=== PATIENT | male | born 1950 | race Caucasian/White ===

== ENCOUNTER 2018-07-21 17:45 | Inpatient (IN) | payer MEDICARE ==
--- OUTSIDE RECORDS SUMMARY | 2018-07-21 18:33 | XMS REPORT ---
:1950 External Reference #:[id number] Author Organization [facility] Address [address] [place] [address] [place] [address] Phone [phone] Care Team Providers Name Role Phone Rell Saldana III, MD Primary Care Physician Unavailable Payers Type Date Identification Numbers Payment Provider Subscriber Health Maintenance Policy Number: Medicare Blue o Gavino Golden (O) [id number] Group Number: [id number] [address] PayID: [id number] JUAN Jacobson [address] Medigap Part B Expires: 05/05/2015 Policy Number: [id number] Medicare Gavino Handley PayID: [id number] [address] [place] [address] Medigap Part B Effective: 02/04/2014 Policy Number: BS Ramy Handley [id number] Expires: 07/06/2015 PayID: [id number] [address] [address] JUAN Jacobson [id number] Medigap Part B Effective: 02/05/2012 Policy Number: BS Ramy Handley [id number] Expires: 02/03/2014 PayID: [id number] [address] [address] JUAN Jacobson [id number] Commercial Expires: 09/04/2015 PayID: [id number] Medicare D - Drug Plan Gavino Handley Advance Directives Type Date Description Status Comment Other Directive 07/29/2015 health care proxy Current and Verified Problems Date Description Provider Status Onset: 05/28/2011 Type 2 diabetes mellitus Rell Saldana M.D. Active Onset: 05/28/2011 Benign essential hypertension Rell Saldana M.D. Active Onset: 05/28/2011 Mixed hyperlipidemia Rell Saldana M.D. Active Onset: 05/28/2011 Gastroesophageal reflux disease Rell Saldana M.D. Active Onset: 11/15/2012 Obstructive sleep apnea syndrome Rell Saldana M.D. Active Onset: 11/15/2012 Osteoarthritis Rell Saldana M.D. Active Onset: 08/06/2015 Essential hypertension Rell Saldana M.D. Active Family History Date Family Member(s) Problem(s) Comments General Diabetes Father due to Suicide () - age 65; (+) depression, HTN Mother Alzheimer's Disease Social History Type Date Description Comments Lives With Alone Occupation [email or web address] Cigarette Use Former Cigarette Smoker quit age 49; max 2ppd, began age 17 ETOH Use Rarely consumes alcohol Smoking Patient is a former smoker Recreational Drug Use Denies Drug Use Daily Caffeine Comsumes on average 1 cup of decaff coffee per day Exercise Type/Frequency Exercises rarely walks on occ Allergies, Adverse Reactions, Alerts Date Description Reaction Status Severity Comments 05/18/2007 Iodine active 02/22/2018 Iodinated Diagnostic warm and tingling active Agents sensation 03/07/2013 Amlodipine active lower extremity edema Medications Medication Date Status Form Strength Qnty SIG Indications Ordering Provider Irbesartan 05/19 Active Tablets 75mg 30tab 1 by mouth Rell [place] s every day Oh Saldana Multaq 03/01 Active Tablets 400mg 60tab 1 by mouth Adi s twice a day Tash Macario M.D. Atorvastatin 02/22 Active Tablets 20mg take 1 E78.2 Rell [place] Calcium tablet every Shana, other day at M.DAllyn bedtime Metoprolol 02/18 Active Tablets ER 50mg 180ta 1 by mouth Adi Succinate ER 24HR bs twice a day Tash Macario M.D. Xarelto 02/01 Active Tablets 20mg 30tab 1 by mouth Adi s every day Tash Macario M.D. Omeprazole 10/[address] 20mg 1 by mouth K21.9 Rell [place] /2016 every day Oh Saldana Metformin HCL 08/03 Active Tablets 1000mg 180ta 1 by mouth Rell [place] bs twice a day Oh Saldana Trulicity 07/27 Active Solution 0.75mg/0. 4unit inject E11.9 Rell E Pen-Inject 5ML s 0.75mg once Shana, a week M.DAllyn Freestyle 28G 03/04 Active 100un Test twice a E11.9 Rell [place] Lancets its day Oh Saldana BD U/F Short 03/04 Active 100un Use With Rell [place] Pen its Lantus Shana, [id number] Subcutaneous M.D. ly Twice A Day Accu-Chek 12/18 Active Strips 100un four times a Rell [place] Comfort Curve Strips day and as Shana, Test needed M.D. Freestyle Lite 06/24 Active 100un use 4 times Rell [place] Lancets its times daily Shana, or as needed M.D. Freestyle Lite 06/24 Active Strip 100un Test 4 Times Rell [place] Test its A Day And as Shana, Needed M.D. Pen Gaffney 09/25 Active 8mm 100un use with E11. Rell [place] [id number]" 31G X its lantus subq Shana everyday Oh twice a day Chlorthalidone 08/23 Active Tablets 25mg 45tab 1/2 po qd I10 Rell [place] desiree Saldana M.D. Lantus Solostar 08/23 Active Solution 100Unit/M 30uni 49 units E11. Rell [place] Pen-Inject L ts twice a day Oh Saldana Glimepiride 11/15 Active Tablets 4mg 180ta take 2 E11.9 Rell [place] bs tablets by Shana, mouth once M.DAllyn daily Accu-Check 04/08 Active Device 1unit check 2-3 Rell [place] Glucose Monitor s times a day Oh Saldana Arabella Allergy Active Tablets 180mg 30tab 1 by mouth Unknown /0000 s every day Ibuprofen 00 Active Tablets 200mg as needed Unknown /0000 Multi Vitamin Active Tablets 1 by mouth Unknown /0000 every day Metoprolol 02/01 Hx Tablets 25mg 60tab 2 by mouth Adi Tartrate s twice a day Tash Macario, - M.DAllyn 02/18 Famotidine 07/27 Hx Tablets 40mg 30tab 1 by mouth K21.9 Rell E. s every day Shana - M.DAllyn 10/23 Celecoxib 01/12 Hx Capsules 200mg 60cap 1 by mouth M17.0 Dirk s twice a day Rachel, - M.DAllyn 07/27 Atorvastatin 08/06 Hx Tablets 10mg 90tab take 1 E78.2 Rell EAllyn s tablet by Shana, - mouth daily M.D. 02/22 at bedtime Invokana 08/06 Hx Tablets 300mg 90tab 1 by mouth E11.9 Rell E. s every day Shana - M.DAllyn 02/21 Invokana 09/10 Hx Tablets 100mg 90tab 1 by mouth 250.00 Rell E. s every day Shana, - before M.D. 08/06 breakfast Zostavax 09/10 Hx Solution [id number]/ 1unit 1 dose s/c V70.0 Rell EAllyn Rec 0.65ML s Shana - M.DAllyn 10/11 Pen Gaffney 08/23 Hx Misc 31G X 8 50uni use with 250.00 Rell E. 31GX5/16" mm ts lantus subq Shana - qday M.DAllyn 09/25 Lisinopril 08/23 Hx Tablets 40mg 90tab 1 po qd I10 Rell E. s Marcellus Saldana M.DAllyn 06/25 Accu-Chek 09/10 Hx Misc 100un test twice Rell [place] Softcl its daily as Isac Saldana - needed M.D. 06/24 Accu-Check 09/09 Hx 120un use four Rell Chau its times a day Shana, - and prn. M.Tash 06/24 Fish Oil 08/17 Hx Capsules 1000mg 1 capsule qd Rell [place] Marcellus Saldana M.DAllyn 08/23 Glimepiride 08/17 Hx Tablets 2mg 45tab 07/08 tabs po 250.00 Rell Rosa Elena s qd Shana - M.DAllyn 11/15 Glimepiride 07/11 Hx Tablets 2mg 30tab 1 po qd 250.00 Rell E. s Shana - M.DAllyn 08/17 Losartan 07/11 Hx Tablets 100-25mg 30tab take 1 401.1 Rell Romo. Potassium/[place] s tablet by Shana chlorothiazide - mouth once M.D. 08/23 daily Atorvastatin 07/11 Hx Tablets 20mg 30tab take 1 272.2 Rell [place] Calcium s tablet by Shana, - mouth at M.D. 08/06 bedtime Accu-Chek 04/08 Hx Strips 102un four times a Rell [place] Compact Plus its day and as Shana, - needed M.D. 06/24 Freestyle 12/22 Hx 100un Use With Rell Chau its Glucometer 2 Shana, - Times A Day M.D. 04/08 Or Needed. Losartan 05/28 Hx Tablets 100-12.5m 30tab Take 1 Rell [place] Potassium/[place] g s Tablet By Shana chlorothiazide - Mouth Daily M.D. 07/11 Fluticasone 04/23 Hx Suspension 50mcg/Act 16uni instill 1 Rell [place] Propionate ts spray into Shana, - each nostril M.D. 07/11 once daily Xyzal 04/13 Hx Tablets 5mg 30tab 1 tablet Rell Rosa Elena /2010 s daily as Shana, - needed M.D. 07/11 Freestyle Lite 11/19 Hx 100un two times Rell Chau its daily or as Shana, - needed M.D. 04/08 Freestyle Lite 16 Hx Strip 100un Use as Rell [place] Test its Directed 2 Shana, - Times Daily M.D. 04/08 Or Needed. Amlodipine 11/12 Hx Tablets 10mg 90tab 1 po qd 401.1 Rell [place] Bes Marcellus Lozano M.D. 03/02 Losartan 10/15 Hx Tablets 100mg 30tab 1 po qd Rell [place] Potassium Marcellus Lozano M.D. 05/28 Janumet 10/15 Hx Tablets 50-1000mg 180ta take 1 Rell [place] bs tablet by Shana - mouth twice M.DAllyn 08/03 Metformin ER 08/21 Hx 500mg 120un 2 PO bid Rell [place] /2007 its Marcellus Saldana M.D. 10/15 Zestoretic 06/22 Hx Tablets 20-12.5 30tab 1 po qd Rell [place] /2006 Marcellus Lozano M.D. 10/15 Metformin HCL 05/18 Hx Tablets 1000mg 180ta 1 po bid Rell [place] /2006 Marcellus Luke M.D. 08/21 Avandia 05/18 Hx Tablets 4mg 180ta 2 PO qd Rell [place] /2006 Marcellus Luke M.D. 10/15 Aspir-81 05/[address] 81mg 1 PO qd Rell [place] /2006 Marcellus Saldana M.D. 01/19 Zestoretic 05/18 Hx Tablets 06/17.5 90tab 1 PO qd Rell [place] /2006 Marcellus Lozano M.D. 06/22 Lipitor 05/18 Hx Tablets 20mg 30tab take 1 Rell [place] /2006 s tablet daily Marcellus Saldana at bedtime Maritza.Tash 08/17 Arabella Hx Tablets 180mg 90tab 1 PO qd prn Rell [place] / Marcellus Lozano M.D. 04/13 Flonase Hx Suspension 50mcg/Act 3unit 1 Intranasal Jose Angel / s puff To Each Pachika - Oh Blanco 04/23 Precision Xtra Hx Strips 100un Use To Rell [place] Blood Glucose / its Monitor Shana Test Strips - Blood M.DAllyn 11/19 Glucose qd or prn Dx 250.00 Lancets 00/00 Hx Misc 100un Microlet use Rell E. /0000 its with Shana, - glucometer M.D. 11/19 bid pr /2010 [address]il[address]c OTC Hx Tablets DR 20mg 21tab 1 po qd Unknown /0000 s - 07/27 Glucosamine Hx Capsules 500Comp 1 by mouth Unknown Chondroitin 500 /0000 every day Complex - 02/05 Ibuprofen PM Hx Tablets 200-38mg 1 at bedtime Unknown /0000 - 03/28 Medications Administered in Office Medication Date Status Form Strength Qnty SIG Indications Ordering Provider Synvisc Or Administered Injection Ángel Synvisc-One 018 Rosano, Injection 1 MG PA-C Synvisc Or Administered Injection Dirk Rachel, Synvisc-One 018 M.D. Injection 1 MG Synvisc Or Administered Injection Dirk Rachel, Synvisc-One 018 M.D. Injection 1 MG Synvisc Or Administered Injection Dirk Rachel, Synvisc-One 017 M.D. Injection 1 MG Synvisc Or Administered Injection Dirk Rachel, Synvisc-One 017 M.D. Injection 1 MG Depomedrol Administered Injection Dirk Rachel, 40MG 017 M.D. Depomedrol Administered Injection Dirk Rachel, 40MG 017 M.D. Depomedrol Administered Injection Dirk Rachel, 40MG 016 M.D. Depomedrol Administered Injection Dirk Rachel, 40MG 016 M.D. Depomedrol Administered Injection Dirk Rachel, 40MG 016 M.D. Depomedrol Administered Injection Dirk Rachel, 40MG 016 M.D. Immunizations CPT Code Status Date Vaccine Reaction Lot # 30067 Given 04/11/2018 Pneumonia Vaccine Pt. tolerated well. [id number] 61914 Given 06/21/2017 Influenza Virus Vaccine, Quadrivalent, Split, Preservative Free [id number] Given 05/25/2016 Fluzone High Dose 68727 Given 01/20/2016 Tdap - [id number] Tetanus/Diptheria/Acellular Pertussis 01818 Given 07/01/2015 Fluzone High Dose 96791 Given 09/14/2014 Zoster (Zostavax) [id number] Given 09/10/2014 Pneumococcal Conjugate Vaccine [id number] Valent For Intramuscular Use 41050 Given 07/17/2014 Flu Vaccine Split Virus Preservative Free For Indiv 3Yr Older 22768 Given 08/23/2013 Flu Vaccine Split Virus [id number] Preservative Free For Indiv 3Yr Older Q2037 Given 07/11/2012 Fluvirin Im 3Yrs And Older [id number] 95645 Given 05/28/2011 Influenza Virus 3Yrs & Over [id number] 40600 Given 10/15/2010 Influenza Virus 3Yrs & Over [id number] 32765 Given 03/06/2009 Pneumonia Vaccine [id number] 63483 Given 07/25/2008 Influenza Virus 3Yrs & Over 63930 Given 06/22/2007 Influenza Virus 3Yrs & Over 90612 Given 09/15/2005 Td (History By Patient) Vital Signs Date Vital Result Comment 06/28/2018 Height 67 inches 5'7" Weight 289.00 lb w/ shoes Heart Rate 93 /min BP Systolic Sitting 132 mmHg lue lg cuff BP Diastolic Sitting 68 mmHg lue lg cuff BMI (Body Mass Index) 45.3 kg/m2 Ejection Fraction 50-55% 02/01/18 04/18/2018 Height 67 inches 5'7" Weight 280.00 lb Heart Rate 96 /min BP Systolic 160 mmHg BP Diastolic 78 mmHg Body Temperature 97.6 F BMI (Body Mass Index) 43.8 kg/m2 04/11/2018 Height 67 inches 5'7" Weight 282.00 lb Heart Rate 88 /min BP Systolic Sitting 130 mmHg BP Diastolic Sitting 68 mmHg Body Temperature 98.7 F O2 % BldC Oximetry 96 % BMI (Body Mass Index) 44.2 kg/m2 04/04/2018 Height 67 inches 5'7" Weight 280.00 lb Heart Rate 94 /min BP Systolic 143 mmHg BP Diastolic 69 mmHg Body Temperature 97.5 F BMI (Body Mass Index) 43.8 kg/m2 03/29/2018 Height 68 inches 5'8" Weight 282.00 lb w/ shoes BP Systolic Sitting 132 mmHg lue lg cuff BP Diastolic Sitting 62 mmHg lue lg cuff Respiratory Rate 18 /min BMI (Body Mass Index) 42.9 kg/m2 Ejection Fraction 55-60% echo 03/01/18 03/07/2018 Height 68 inches 5'8" Weight 282.00 lb with shoes. BP Systolic Sitting 132 mmHg Negin large cuff BP Diastolic Sitting 60 mmHg Negin large cuff BP Systolic Standing 128 mmHg Negin large cuff BP Diastolic Standing 58 mmHg Negin large cuff BMI (Body Mass Index) 42.9 kg/m2 02/22/2018 Height 68 inches 5'8" Weight 280.00 lb w/ shoes Heart Rate 140 /min BP Systolic Sitting 128 mmHg lue lg cuff BP Diastolic Sitting 76 mmHg lue lg cuff BMI (Body Mass Index) 42.6 kg/m2 Ejection Fraction 50-55% echo 02/01/18 09/13/2017 Height 68 inches 5'8" Weight 279.00 lb BP Systolic 134 mmHg BP Diastolic 78 mmHg Respiratory Rate 20 /min Pain Level 8 BMI (Body Mass Index) 42.4 kg/m2 08/11/2017 Height 68 inches 5'8" Weight 279.00 lb BP Systolic 128 mmHg BP Diastolic 76 mmHg Respiratory Rate 20 /min Pain Level 8 BMI (Body Mass Index) 42.4 kg/m2 07/28/2017 Height 67 inches 5'7" Weight 281.00 lb Heart Rate 110 /min BP Systolic Sitting 126 mmHg BP Diastolic Sitting 78 mmHg Body Temperature 98.7 F O2 % BldC Oximetry 97 % BMI (Body Mass Index) 44.0 kg/m2 02/08/2017 Height 68 inches 5'8" Weight 279.00 lb Heart Rate 82 /min BP Systolic 150 mmHg BP Diastolic 88 mmHg Respiratory Rate 18 /min Body Temperature 98.5 F Pain Level 6 BMI (Body Mass Index) 42.4 kg/m2 01/25/2017 Height 68 inches 5'8" Weight 279.00 lb Heart Rate 109 /min BP Systolic 144 mmHg BP Diastolic 74 mmHg Pain Level 6 BMI (Body Mass Index) 42.4 kg/m2 12/02/2016 Height 68 inches 5'8" Weight 279.00 lb Heart Rate 118 /min BP Systolic 134 mmHg BP Diastolic 75 mmHg Body Temperature 97.4 F Pain Level 5 BMI (Body Mass Index) 42.4 kg/m2 10/23/2016 Height 68 inches 5'8" Weight 281.25 lb Heart Rate 103 /min BP Systolic 124 mmHg BP Diastolic 68 mmHg O2 % BldC Oximetry 97 % BMI (Body Mass Index) 42.8 kg/m2 07/29/2016 Height 68 inches 5'8" Weight 279.00 lb Pain Level 7 BMI (Body Mass Index) 42.4 kg/m2 07/27/2016 Height 66 inches 5'6" Weight 278.00 lb w/ boots Heart Rate 116 /min BP Systolic Sitting 124 mmHg BP Diastolic Sitting 70 mmHg Body Temperature 98.3 F O2 % BldC Oximetry 98 % BMI (Body Mass Index) 44.9 kg/m2 01/20/2016 Weight 275.00 lb Heart Rate 102 /min BP Systolic Sitting 132 mmHg BP Diastolic Sitting 60 mmHg Body Temperature 98.3 F 01/13/2016 Height 68 inches 5'8" Weight 275.00 lb Heart Rate 113 /min BP Systolic 140 mmHg BP Diastolic 78 mmHg BMI (Body Mass Index) 41.8 kg/m2 08/06/2015 Height 65.75 inches 5'5.75" Weight 280.00 lb Heart Rate 108 /min BP Systolic 138 mmHg BP Diastolic 70 mmHg Body Temperature 98.3 F O2 % BldC Oximetry 97 % BMI (Body Mass Index) 45.5 kg/m2 02/04/2015 Weight 279.00 lb Heart Rate 107 /min BP Systolic Sitting 144 mmHg BP Diastolic Sitting 68 mmHg 10/11/2014 Height 65.75 inches 5'5.75" Weight 280.25 lb Heart Rate 114 /min BP Systolic Sitting 142 mmHg 151/81 home, pulse 123 BP Diastolic Sitting 66 mmHg 151/81 home, pulse 123 Body Temperature 98.1 F O2 % BldC Oximetry 97 % BMI (Body Mass Index) 45.6 kg/m2 09/10/2014 Height 65.75 inches 5'5.75" Weight 282.00 lb Heart Rate 111 /min BP Systolic Sitting 162 mmHg 189/94 initially BP Diastolic Sitting 74 mmHg 189/94 initially Body Temperature 97.7 F O2 % BldC Oximetry 99 % BMI (Body Mass Index) 45.9 kg/m2 01/15/2014 Weight 279.50 lb Heart Rate 120 /min BP Systolic Sitting 144 mmHg BP Diastolic Sitting 78 mmHg 10/12/2013 Weight 288.00 lb Heart Rate 110 /min BP Systolic Sitting 148 mmHg pt 141/79 BP Diastolic Sitting 78 mmHg pt 141/79 08/23/2013 Height 66.25 inches 5'6.25" Weight 283.25 lb Heart Rate 112 /min BP Systolic Sitting 140 mmHg BP Diastolic Sitting 70 mmHg BMI (Body Mass Index) 45.4 kg/m2 11/15/2012 Height 66.5 inches 5'6.50" Weight 285.00 lb Heart Rate 94 /min BP Systolic Sitting 152 mmHg BP Diastolic Sitting 70 mmHg BMI (Body Mass Index) 45.3 kg/m2 08/17/2012 Height 66.5 inches 5'6.50" Weight 281.00 lb Heart Rate 100 /min BP Systolic Sitting 162 mmHg BP Diastolic Sitting 78 mmHg BMI (Body Mass Index) 44.7 kg/m2 07/11/2012 Height 66.5 inches 5'6.50" Weight 279.00 lb Heart Rate 124 /min BP Systolic Sitting 154 mmHg BP Diastolic Sitting 86 mmHg BMI (Body Mass Index) 44.4 kg/m2 05/28/2011 Height 67 inches 5'7" Weight 276.00 lb Heart Rate 88 /min BP Systolic Sitting 152 mmHg BP Diastolic Sitting 90 mmHg BMI (Body Mass Index) 43.2 kg/m2 01/22/2011 Weight 280.00 lb Heart Rate 92 /min BP Systolic Sitting 164 mmHg BP Diastolic Sitting 70 mmHg 11/12/2010 Weight 287.00 lb Heart Rate 86 /min BP Systolic Sitting 172 mmHg BP Diastolic Sitting 80 mmHg 10/15/2010 Weight 287.00 lb Heart Rate 113 /min BP Systolic Sitting 158 mmHg BP Diastolic Sitting 70 mmHg O2 % BldC Oximetry 95 % 08/28/2009 Weight 274.00 lb down 9# Heart Rate 100 /min BP Systolic Sitting 140 mmHg BP Diastolic Sitting 76 mmHg 03/06/2009 Height 66.5 inches 5'6.50" Weight 283.00 lb Heart Rate 112 /min BP Systolic Sitting 156 mmHg BP Diastolic Sitting 86 mmHg BMI (Body Mass Index) 45.0 kg/m2 03/22/2008 Height 66.5 inches 5'6.50" Weight 272.00 lb Heart Rate 72 /min BP Systolic Sitting 142 mmHg BP Diastolic Sitting 84 mmHg BMI (Body Mass Index) 43.2 kg/m2 09/22/2007 Height 66.5 inches 5'6.50" Weight 272.00 lb Heart Rate 104 /min BP Systolic Sitting 158 mmHg BP Diastolic Sitting 86 mmHg BMI (Body Mass Index) 43.2 kg/m2 06/22/2007 Height 66.5 inches 5'6.50" Weight 272.00 lb Heart Rate 116 /min BP Systolic Sitting 156 mmHg BP Diastolic Sitting 78 mmHg BMI (Body Mass Index) 43.2 kg/m2 05/18/2007 Height 66.5 inches 5'6.50" Weight 272.00 lb Heart Rate 84 /min BP Systolic Sitting 180 mmHg BP Diastolic Sitting 90 mmHg BMI (Body Mass Index) 43.2 kg/m2 Results Test Date Test Result H/L Range Note Laboratory test finding 04/11/2018 Hemoglobin A1c 6.2 5-7 Comp Metabolic Panel 02/01/2018 Sodium 135 mmol/L Low 139-145 Potassium 4.3 mmol/L 3.5-5.0 Chloride 102 mmol/L 101-111 Co2 Carbon Dioxide 25 mmol/L 22-32 Anion Gap 8 mmol/L 2-11 Glucose 120 mg/dL High 70-100 Blood Urea Nitrogen 13 mg/dL 6-24 Creatinine 0.85 mg/dL 0.67-1.17 BUN/Creatinine Ratio 15.3 8-20 Calcium 8.8 mg/dL 8.6-10.3 Total Protein 6.6 g/dL 6.4-8.9 Albumin 4.0 g/dL 3.2-5.2 Globulin 2.6 g/dL 2-4 Albumin/Globulin Ratio 1.5 1-3 Total Bilirubin 0.70 mg/dL 0.2-1.0 Alkaline Phosphatase 61 U/L 34-104 Alt 38 U/L 7-52 Ast 51 U/L High 13-39 Egfr Non- 89.6 >60 Egfr 115.3 >60 1 Laboratory test finding 02/01/2018 TSH (Thyroid Stim Horm) 2.91 mcIU/mL 0.34-5.60 CBC Auto Diff 02/01/2018 White Blood Count 7.2 10^3/uL 3.5-10.8 Red Blood Count 4.88 10^6/uL 4.0-5.4 Hemoglobin 12.2 g/dL Low 14.0-18.0 Hematocrit 38 % Low 42-52 Mean Corpuscular Volume 78 fL Low 80-94 Mean Corpuscular Hemoglobin 25 pg Low 27-31 Mean Corpuscular HGB Conc 32 g/dL 31-36 Red Cell Distribution Width 16 % High 10.5-15 Platelet Count 172 10^3/uL 150-450 Mean Platelet Volume 8.1 um3 7.4-10.4 Abs Neutrophils 5.3 10^3/uL 1.5-7.7 Abs Lymphocytes 1.2 10^3/uL 1.0-4.8 Abs Monocytes 0.4 10^3/uL 0-0.8 Abs Eosinophils 0.2 10^3/uL 0-0.6 Abs Basophils 0 10^3/uL 0-0.2 Abs Nucleated RBC 0 10^3/uL Granulocyte % 73.8 % 38-83 Lymphocyte % 16.5 % Low 25-47 Monocyte % 6.1 % 0-7 Eosinophil % 3.3 % 0-6 Basophil % 0.3 % 0-2 Nucleated Red Blood Cells % 0 Lipid Profile (Trig/Chol/HDL) 07/20/2017 Triglycerides 236 mg/dL 2 Cholesterol 90 mg/dL 3 HDL Cholesterol 26.4 mg/dL 4 LDL Cholesterol 16 mg/dL 5 Laboratory test finding 07/20/2017 Hemoglobin A1c (Glyco 6.7 % High 4.0- 5.6 6 HGB) Urine Microalbumin 07/20/2017 Ur Microalbumin (mg/L) < 15.0 mg/L Random Urine Creatinine 86.99 mg/dL Urine Microalbumin/Creatinine TNP ug/mg <31 7 Comp Metabolic Panel 07/20/2017 Sodium 138 mmol/L 133-145 Potassium 5.0 mmol/L 3.5-5.0 Chloride 106 mmol/L 101-111 Co2 Carbon Dioxide 24 mmol/L 22-32 Anion Gap 8 mmol/L 2-11 Glucose 134 mg/dL High 70-100 Blood Urea Nitrogen 22 mg/dL 6-24 Creatinine 1.11 mg/dL 0.67-1.17 BUN/Creatinine Ratio 19.8 8-20 Calcium 9.6 mg/dL 8.6-10.3 Total Protein 6.6 g/dL 6.4-8.9 Albumin 4.3 g/dL 3.2-5.2 Globulin 2.3 g/dL 2-4 Albumin/Globulin Ratio 1.9 1-3 Total Bilirubin 0.60 mg/dL 0.2-1.0 Alkaline Phosphatase 70 U/L 34-104 Alt 33 U/L 7-52 Ast 32 U/L 13-39 Egfr Non- 66.1 >60 Egfr 85.0 >60 8 Laboratory test finding 10/23/2016 Hemoglobin A1c 6.9 5-7 Lipid Profile (Trig/Chol/HDL) 07/21/2016 Triglycerides 253 mg/dL 9 Cholesterol 95 mg/dL 10 HDL Cholesterol 24.9 mg/dL 11 LDL Cholesterol 20 mg/dL 12 Laboratory test 07/21/2016 Hemoglobin A1c 8.1 % High Less than 6.0 13 finding (Glyco HGB) Urine Microalbumin 07/21/2016 Urine Creatinine 72.72 mg/dL Random Ur Microalbumin (mg/L) < 15.0 mg/L Urine Microalbumin/Creatinine TNP ug/mg <31 14 Comp Metabolic Panel 01/16/2016 Sodium 136 mmol/L 133-145 Potassium 4.4 mmol/L 3.5-5.0 Chloride 104 mmol/L 101-111 Co2 Carbon Dioxide 24 mmol/L 22-32 Anion Gap 8 mmol/L 2-11 Glucose 135 mg/dL High 70-100 Blood Urea Nitrogen 35 mg/dL High 6-24 Creatinine 1.09 mg/dL 0.67-1.17 BUN/Creatinine Ratio 32.1 High 8-20 Calcium 9.0 mg/dL 8.6-10.3 Total Protein 6.8 g/dL 6.4-8.9 Albumin 4.2 g/dL 3.2-5.2 Globulin 2.6 g/dL 2-4 Albumin/Globulin Ratio 1.6 1-3 Total Bilirubin 0.50 mg/dL 0.2-1.0 Alkaline Phosphatase 75 U/L 34-104 Alt 37 U/L 7-52 Ast 31 U/L 13-39 Egfr Non- 67.7 >60 Egfr 87.0 >60 15 Laboratory test 01/16/2016 Hemoglobin A1c (Glyco 7.3 % High Less than 6.0 16 finding HGB) Lipid Profile 07/30/2015 Triglycerides 192 mg/dL 17 (Trig/Chol/HDL) Cholesterol 81 mg/dL 18 HDL Cholesterol 25.4 mg/dL 19 LDL Cholesterol 17 mg/dL 20 Laboratory test 07/30/2015 Hemoglobin A1c 7.4 % High Less than 6.0 21 finding (Glyco HGB) Laboratory test 01/30/2015 Hemoglobin A1c 7.4 % High Less than 6.0 22 finding (Glyco HGB) Comp Metabolic Panel 01/30/2015 Sodium 137 mmol/L 133-145 Potassium 5.4 mmol/L High 3.5-5.0 Chloride 108 mmol/L 101-111 Co2 Carbon Dioxide 23 mmol/L 22-32 Anion Gap 6 mmol/L 2-11 Glucose 136 mg/dL High 70-100 Blood Urea Nitrogen 27 mg/dL High 6-24 Creatinine 1.17 mg/dL 0.67-1.17 BUN/Creatinine Ratio 23.1 High 8-20 Calcium 9.7 mg/dL 8.6-10.3 Total Protein 6.5 g/dL 6.4-8.9 Albumin 4.2 g/dL 3.2-5.2 Globulin 2.3 g/dL 2-4 Albumin/Globulin Ratio 1.8 1-3 Total Bilirubin 0.50 mg/dL 0.2-1.0 Alkaline Phosphatase 77 U/L 34-104 Alt 34 U/L 7-52 Ast 32 U/L 13-39 Egfr Non- 62.6 >60 Egfr 80.5 >60 23 BMP Basic Metabolic Panel 10/09/2014 Sodium 135 mmol/L 133-145 Potassium 4.5 mmol/L 3.5-5.0 Chloride 106 mmol/L 101-111 Co2 Carbon Dioxide 19 mmol/L Low 22-32 Anion Gap 10 mmol/L 2-11 Glucose 233 mg/dL High 70-100 Blood Urea Nitrogen 20 mg/dL 6-24 Creatinine 1.25 mg/dL High 0.67-1.17 BUN/Creatinine Ratio 16.0 8-20 Calcium 9.4 mg/dL 8.6-10.3 Egfr Non- 58.0 >60 Egfr 74.6 >60 24 Laboratory test 09/04/2014 Hemoglobin A1c 10.8 % High Less than 25, 26 finding 6.0 Urine Microalbumin 09/04/2014 Ur Microalbumin 51.0 mg/L 25 Random (mg/L) Urine Creatinine 112.26 mg/dL 25 Urine Microalbumin/Creatinine 45.4 High Less Than 31 25 CBC Auto Diff 09/04/2014 White Blood Count 5.5 10^3/uL 4.8-10.8 25 Red Blood Count 4.29 10^6/uL 4.0-5.4 25 Hemoglobin 10.0 g/dL Low 14.0-18.0 25 Hematocrit 32 % Low 42-52 25 Mean Corpuscular Volume 76 fL Low 80-94 25 Mean Corpuscular Hemoglobin 23 pg Low 27-31 25 Mean Corpuscular HGB Conc 31 g/dL 31-36 25 Red Cell Distribution Width 16 % High 10.5-15 25 Platelet Count 190 10^3/uL 150-450 25 Mean Platelet Volume 9 um3 7.4-10.4 25 Abs Neutrophils 3.6 10^3/uL 1.5-7.7 25 Abs Lymphocytes 1.3 10^3/uL 1.0-4.8 25 Abs Monocytes 0.3 10^3/uL 0-0.8 25 Abs Eosinophils 0.2 10^3/uL 0-0.6 25 Abs Basophils 0 10^3/uL 0-0.2 25 Abs Nucleated RBC 0 10^3/uL 25 Granulocyte % 65.4 % 38-83 25 Lymphocyte % 23.0 % Low 25-47 25 Monocyte % 6.2 % 1-9 25 Eosinophil % 4.5 % 0-6 25 Basophil % 0.9 % 0-2 25 Nucleated Red Blood Cells % 0.1 25 Comp Metabolic Panel 09/04/2014 Sodium 134 mmol/L 133-145 25 Potassium 4.2 mmol/L 3.5-5.0 25 Chloride 102 mmol/L 101-111 25 Co2 Carbon Dioxide 21 mmol/L Low 22-32 25 Anion Gap 11 mmol/L 2-11 25 Glucose 244 mg/dL High 70-100 25 Blood Urea Nitrogen 17 mg/dL 6-24 25 Creatinine 1.02 mg/dL 0.67-1.17 25 BUN/Creatinine Ratio 16.7 8-20 25 Calcium 9.0 mg/dL 8.6-10.3 25 Total Protein 6.5 g/dL 6.4-8.9 25 Albumin 3.9 g/dL 3.2-5.2 25 Globulin 2.6 g/dL 2-4 25 Albumin/Globulin Ratio 1.5 1-3 25 Total Bilirubin 0.60 mg/dL 0.2-1.0 25 Alkaline Phosphatase 79 U/L 34-104 25 Alt 35 U/L 7-52 25 Ast 43 U/L High 13-39 25 Egfr Non- 73.3 >60 25 Egfr 94.3 >60 25, 27 Lipid Profile (Trig/Chol/HDL) 09/04/2014 Triglycerides 343 mg/dL 25, 28 Cholesterol 102 mg/dL 25, 29 HDL Cholesterol 21.0 mg/dL 25, 30 LDL Cholesterol 12 mg/dL 25, 31 Laboratory test finding 01/15/2014 Hemoglobin A1c 7.9 High 5-7 Laboratory test finding 10/12/2013 Hemoglobin A1c 9.0 High 5-7 Basic Metabolic Panel 10/05/2013 Sodium 139 mmol/L 133-145 Potassium 4.8 mmol/L 3.5-5.0 Chloride 106 mmol/L 101-111 Co2 Carbon Dioxide 23.0 mmol/L 22-32 Anion Gap 10.0 mmol/L 2-11 Glucose 212 mg/dL High 70-100 Blood Urea Nitrogen 15 mg/dL 6-24 Creatinine 1.10 mg/dL 0.50-1.40 BUN/Creatinine Ratio 13.6 8-20 Calcium 9.2 mg/dL 8.1-9.9 Egfr Non- 67.4 >60 Egfr 86.7 >60 32 Laboratory test 10/05/2013 Hepatitis C Antibody Nonreactive Nonreactive 33 finding HIV 1/2 AB Evaluation 10/05/2013 HIV 1 2 Antibody Nonreactive Nonreactive 34 Urine Microalbumin 08/17/2013 Ur Microalbumin (mg/L) 56.0 mg/L 35 Random Urine Creatinine 183.7 mg/dL Urine Microalbumin/Creatinine 30.5 Less Than 31 Lipid Profile (Trig/Chol/HDL) 08/17/2013 Triglycerides 276 mg/dL High 40- 200 Cholesterol 106 mg/dL Less than 200 HDL Cholesterol 26 mg/dL Low 40-60 36 Cholesterol/HDL Ratio 4.1 Average 1-4.44 LDL Cholesterol 24.8 Less Than 100 37 Laboratory test 08/17/2013 Hemoglobin A1c 10.9 % High Less than 6.0 38 finding Surgical Pathology 05/23/2013 S RUN DATE: 39 05/26/ <SEE NOTE> Stool For Blood 05/23/2013 Stool Occult Blood (SEE NOTE) 40 Surgical Pathology 01/03/2013 S RUN DATE: 41 01/05/ <SEE NOTE> Stool For Blood 11/21/2012 Misc pos x2, neg x1 Laboratory test 11/15/2012 Hemoglobin A1c 9.8 High 5-7 finding CBC With Manual Diff 11/09/2012 White Blood Count 6.1 10^3/uL 4.8-10.8 Red Blood Count 4.05 10^6/uL 4.0-5.4 Hemoglobin 9.7 g/dL Low 14.0-18.0 Hematocrit 31 % Low 42-52 Mean Corpuscular Volume 76 fL Low 80-94 Mean Corpuscular Hemoglobin 24 pg Low 27-31 Mean Corpuscular HGB Conc 32 g/dL 31-36 Red Cell Distribution Width 15 % 10.5-15 Platelet Count 208 10^3/uL 150-450 Mean Platelet Volume 9 um3 7.4-10.4 Abs Neutrophils 4.1 10^3/uL 1.5-7.7 Abs Lymphocytes 1.2 10^3/uL 1.0-4.8 Abs Monocytes 0.3 10^3/uL 0-0.8 Abs Eosinophils 0.3 10^3/uL 0-0.6 Abs Basophils 0 10^3/uL 0-0.2 Abs Nucleated RBC 0 10^3/uL Neutrophil % 72 % 38-83 Lymphocytes % 17 % Low 25-47 Monocytes % 1 % 0-13 Eosinophils % 10 % High 0-6 Microcytosis 1+ Hypochromasia 1+ Laboratory test finding 11/09/2012 Iron 38 g/dL Low 45-182 Ferritin < 10 ng/mL Low 24-336 Vitamin B12 224 pg/mL 180-914 Folate 24.2 ng/mL High 2-16 Basic Metabolic Panel 11/09/2012 Sodium 135 mmol/L 133-145 Potassium 4.0 mmol/L 3.5-5.0 Chloride 100 mmol/L Low 101-111 Co2 Carbon Dioxide 25.0 mmol/L 22-32 Anion Gap 10.0 mmol/L 2-11 Glucose 260 mg/dL High 70-100 Blood Urea Nitrogen 19 mg/dL 6-24 Creatinine 0.90 mg/dL 0.50-1.40 BUN/Creatinine Ratio 21.1 High 8-20 Calcium 8.9 mg/dL 8.1-9.9 Egfr Non- 85.2 >60 Egfr 109.6 >60 42 Basic Metabolic Panel 09/27/2012 Sodium 138 mmol/L 133-145 Potassium 4.6 mmol/L 3.5-5.0 Chloride 103 mmol/L 101-111 Co2 Carbon Dioxide 26.0 mmol/L 22-32 Anion Gap 9.0 mmol/L 2-11 Glucose 308 mg/dL High 70-100 Blood Urea Nitrogen 15 mg/dL 6-24 Creatinine 0.90 mg/dL 0.50-1.40 BUN/Creatinine Ratio 16.7 8-20 Calcium 9.1 mg/dL 8.1-9.9 Egfr Non- 85.2 >60 Egfr 109.6 >60 43 Laboratory test finding 07/11/2012 Hemoglobin A1c 10.1 High 5-7 Basic Metabolic Panel 07/04/2012 Sodium 136 mmol/L 133-145 Potassium 4.4 mmol/L 3.5-5.0 Chloride 102 mmol/L 101-111 Co2 Carbon Dioxide 23.0 mmol/L 22-32 Anion Gap 11.0 mmol/L 2-11 Glucose 324 mg/dL High 70-100 Blood Urea Nitrogen 10 mg/dL 6-24 Creatinine 0.90 mg/dL 0.50-1.40 BUN/Creatinine Ratio 11.1 8-20 Calcium 9.2 mg/dL 8.1-9.9 Egfr Non- 85.5 >60 Egfr 110.0 >60 44 Lipid Profile (Trig/Chol/HDL) 07/04/2012 Triglycerides 379 mg/dL High 40- 200 Cholesterol 151 mg/dL Less than 200 45 HDL Cholesterol 24 mg/dL Low 40-60 46 Cholesterol/HDL Ratio 6.3 AVERAGE High 1-4.44 LDL Cholesterol 51.2 mg/dL Less Than 100 Urine Microalbumin Random 07/04/2012 Ur Microalbumin (Mg/L) 259.0 mg/L 47 Urine Creatinine 107.1 mg/dL Urine Microalbumin/Creatinine 241.8 UG/MG High Less Than 31 Laboratory test finding 07/04/2012 Hemoglobin A1c 10.5 % High Less than 6.[address] Saldana's Lab Panel 05/21/2011 TSH 4.20 MIU/ML 0.34-5.60 Comp Metabolic Panel 05/21/2011 Sodium 140 mmol/L 135-145 Potassium 4.6 mmol/L 3.5-5.0 Chloride 107 mmol/L 101-111 Co2 (Carbon Dioxide) 24.0 mmol/L 22-32 Anion Gap 9.0 mmol/L 2-11 49 Glucose 162 mg/dL High 70-100 BUN 10 mg/dL 6-24 Creatinine 0.8 mg/dL 0.50-1.40 One Over Creatinine 1.25 BUN/Creatinine Ratio 12.5 8-20 Calcium 9.1 mg/dL 8.1-9.9 Total Protein 6.0 GM/DL Low 6.2-8.1 Albumin 3.8 GM/DL 3.2-5.2 Globulin 2.2 GM/DL 2-4 Albumin/Globulin Ratio 1.7 1-3 Bilirubin Total 0.8 mg/dL 0.4-1.5 50 Alkaline Phosphatase 75 U/L 39-117 Alt (SGPT) 40 U/L 17-63 Ast (Sgot) 39 U/L 12-42 eGFR Non- 98.3 > 60 eGFR 126.4 > 60 51 Lipid Profile (Trig/Chol/HDL) 05/21/2011 Triglyceride 228 mg/dL High 40- 200 Cholesterol 93 mg/dL Low Less Than 200 52 High Density Lipoprotein 22 mg/dL Low 40-60 53 Cholesterol/HDL Ratio 4.23 AVERAGE 1-4.97 Low Density Lipoprotein 25 mg/dL Less Than 100 54 CBC Auto Diff 05/21/2011 White Blood Count 7.1 CUMM 4.8-10.8 Red Cell Count 4.41 CUMM Low 4.6-6.2 Hemoglobin 12.4 g/dL Low 14.0-18.0 Hematocrit 36 % Low 42-52 Mean Corpuscular Volume 82 um3 80-94 Mean Corpuscular Hemoglob 28 pg 27-31 Mean Corpuscular HGB Cone 34 g/dL 32-36 Redcell Distribution WDTH 15 % 10.5-15 Platelet Count 191 CUMM 150-450 Mean Platelet Volume 9.5 um3 7.4-10.4 Gran % 65.7 % 38-83 Lymph % 22.2 % Low 25-47 Mononuclear % 5.7 % 1-9 Eosinophil % 5.7 % 0-6 Basophil % 0.7 % 0-2 Abs Lymphs 1.6 1.0-4.8 Abs Mononuclear 0.4 0-0.8 Absolute Neutrophil Count 4.6 1.5-7.7 Abs Eosinophils 0.4 0-0.6 Abs Basophils 0 0-0.2 Laboratory test finding 05/21/2011 Hemoglobin A1c 7.3 % High Less Than 6.0 55 Laboratory test finding 01/22/2011 Hemoglobin A1c 6.7 5-7 Urinalysis 10/15/2010 Ua Color YELLOW Yellow Appearance-Urine TURBID Clear Specific Orrick-Ur 1.018 1.010-1.030 Esterase-Urine NEGATIVE Negative Nitrite NEGATIVE Negative [id number] NEGATIVE Negative Protein-Urine NEGATIVE Negative PH-Urine 5.5 5-9 Blood-Urine NEGATIVE Negative Ketones-Urine NEGATIVE Negative Bilirubin-Ur NEGATIVE Negative Glucose-Urine NEGATIVE Negative DR Saldana's Lab Panel 10/09/2010 TSH 3.86 MIU/ML 0.34-5.60 Comp Metabolic Panel 10/09/2010 Sodium 141 mmol/L 135-145 Potassium 4.3 mmol/L 3.5-5.0 Chloride 108 mmol/L 101-111 Co2 (Carbon Dioxide) 22.0 mmol/L 22-32 Anion Gap 11.0 mmol/L 2-11 56 Glucose 130 mg/dL High 70-100 BUN 15 mg/dL 6-24 Creatinine 1.00 mg/dL 0.50-1.40 One Over Creatinine 1.00 BUN/Creatinine Ratio 15.0 8-20 Calcium 9.1 mg/dL 8.1-9.9 Total Protein 6.4 GM/DL 6.2-8.1 Albumin 4.2 GM/DL 3.2-5.2 Globulin 2.2 GM/DL 2-4 Albumin/Globulin Ratio 1.9 1-3 Bilirubin Total 0.5 mg/dL 0.4-1.5 57 Alkaline Phosphatase 52 U/L 39-117 Alt (SGPT) 30 U/L 17-63 Ast (Sgot) 29 U/L 12-42 eGFR Non- 76.0 > 60 eGFR 97.7 > 60 58 Lipid Profile (Trig/Chol/HDL) 10/09/2010 Triglyceride 249 mg/dL High 40- 200 Cholesterol 122 mg/dL Less Than 200 59 High Density Lipoprotein 27 mg/dL Low 40-60 60 Cholesterol/HDL Ratio 4.52 AVERAGE 1-4.97 Low Density Lipoprotein 45 mg/dL Less Than 100 61 CBC With Electronic Diff 10/09/2010 White Blood Count 6.8 CUMM 4.8-10.8 Red Cell Count 4.06 CUMM Low 4.6-6.2 Hemoglobin 11.4 g/dL Low 14.0-18.0 Hematocrit 34 % Low 42-52 Mean Corpuscular Volume 84 um3 80-94 Mean Corpuscular Hemoglob 28 pg 27-31 Mean Corpuscular HGB Cone 34 g/dL 32-36 Redcell Distribution WDTH 15 % 10.5-15 Platelet Count 268 CUMM 150-450 Mean Platelet Volume 8.9 um3 7.4-10.4 Gran % 59.6 % 38-83 Lymph % 26.2 % 25-47 Mononuclear % 6.2 % 1-9 Eosinophil % 7.3 % High 0-6 Basophil % 0.7 % 0-2 Abs Lymphs 1.8 1.0-4.8 Abs Mononuclear 0.4 0-0.8 Absolute Neutrophil Count 4.1 1.5-7.7 Abs Eosinophils 0.5 0-0.6 Abs Basophils 0 0-0.2 Laboratory test finding 10/09/2010 Hemoglobin A1c 6.9 % High Less Than 6.0 62 PSA Screening 1.15 NG/ML 0-4 63 Uric Acid 9.6 mg/dL High 2.6-7.2 Basic Metabolic Panel 08/28/2009 Sodium 142 mmol/L 135-145 64 Potassium 4.7 mmol/L 3.5-5.0 64 Chloride 106 mmol/L 101-111 64 Co2 (Carbon Dioxide) 28.0 mmol/L 22-32 64 Anion Gap 8.0 mmol/L 2-11 64, 65 Glucose 94 mg/dL 70-100 64, 66 BUN 14 mg/dL 6-24 64 Creatinine 0.90 mg/dL 0.50-1.40 64 One Over Creatinine 1.10 64 BUN/Creatinine Ratio 15.6 8-20 64 Calcium 9.8 mg/dL 8.1-9.9 64, 67 eGFR Non- 91.5 > 60 64 eGFR 110.7 > 60 64, 68 Laboratory test 08/28/2009 Hemoglobin A1c 7.0 % High Less Than 6.0 64, 69 finding CBC With Electronic 08/28/2009 White Blood Count 8.4 CUMM 4.8-10.8 64 Diff Red Cell Count 4.54 CUMM Low 4.6-6.2 64 Hemoglobin 13.0 g/dL Low 14.0-18.0 64 Hematocrit 38 % Low 42-52 64 Mean Corpuscular Volume 84 um3 80-94 64 Mean Corpuscular Hemoglob 29 pg 27-31 64 Mean Corpuscular HGB Cone 34 g/dL 32-36 64 Redcell Distribution WDTH 14 % 10.5-15 64 Platelet Count 283 CUMM 150-450 64 Mean Platelet Volume 8.5 um3 7.4-10.4 64 Gran % 64.2 % 38-83 64 Lymph % 24.7 % Low 25-47 64 Mononuclear % 5.6 % 1-9 64 Eosinophil % 4.9 % 0-6 64 Basophil % 0.6 % 0-2 64 Abs Lymphs 2.1 1.0-4.8 64 Abs Mononuclear 0.5 0-0.8 64 Absolute Neutrophil Count 5.4 1.5-7.7 64 Abs Eosinophils 0.4 0-0.6 64 Abs Basophils 0 0-0.2 64 CBC With Electronic Diff Stat 08/18/2009 White Blood Count 8.4 CUMM 4.8- 10.8 Red Cell Count 4.43 CUMM Low 4.6-6.2 Hemoglobin 12.3 g/dL Low 14.0-18.0 Hematocrit 37 % Low 42-52 Mean Corpuscular Volume 84 um3 80-94 Mean Corpuscular Hemoglob 28 pg 27-31 Mean Corpuscular HGB Cone 33 g/dL 32-36 Redcell Distribution WDTH 14 % 10.5-15 Platelet Count 283 CUMM 150-450 Mean Platelet Volume 8.4 um3 7.4-10.4 Gran % 65.0 % 38-83 Lymph % 25.3 % 25-47 Mononuclear % 5.2 % 1-9 Eosinophil % 4.1 % 0-6 Basophil % 0.4 % 0-2 Abs Lymphs 2.1 1.0-4.8 Abs Mononuclear 0.4 0-0.8 Absolute Neutrophil Count 5.5 1.5-7.7 Abs Eosinophils 0.3 0-0.6 Abs Basophils 0 0-0.2 CMP Panel Stat 08/18/2009 Sodium 139 mmol/L 135-145 Potassium 3.2 mmol/L Low 3.5-5.0 Chloride 106 mmol/L 101-111 Co2 (Carbon Dioxide) 23.0 mmol/L 22-32 Anion Gap 10.0 mmol/L 2-11 70 Glucose 239 mg/dL High 70-100 71 BUN 15 mg/dL 6-24 Creatinine 0.80 mg/dL 0.50-1.40 One Over Creatinine 1.20 BUN/Creatinine Ratio 18.8 8-20 Calcium 8.9 mg/dL 8.1-9.9 72 Total Protein 6.5 GM/DL 6.2-8.1 Albumin 4.0 GM/DL 3.6-5.4 Globulin 2.5 GM/DL 2-4 Albumin/Globulin Ratio 1.6 1-3 Bilirubin Total 0.9 mg/dL 0.4-1.5 73 Alkaline Phosphatase 55 U/L 39-117 Alt (SGPT) 38 U/L 17-63 Ast (Sgot) 48 U/L High 12-42 eGFR Non- 105.2 > 60 eGFR 127.2 > 60 74 Laboratory test finding 08/18/2009 Troponin-I (TnI) 0.01 NG/ML 75 Thyroid Panel 08/18/2009 Free Thyroxine 0.85 NG/ML 0.61-1.24 76 Thyroxine 8.7 g/dL 5-12 TSH 2.86 MIU/ML 0.34-5.60 CBC With Electronic Diff 02/26/2009 White Blood Count 7.4 CUMM 4.8-10.8 Red Cell Count 4.71 CUMM 4.6-6.2 Hemoglobin 13.2 g/dL Low 14.0-18.0 Hematocrit 40 % Low 42-52 Mean Corpuscular Volume 85 um3 80-94 Mean Corpuscular Hemoglob 28 pg 27-31 Mean Corpuscular HGB Cone 33 g/dL 32-36 Redcell Distribution WDTH 14 % 10.5-15 Platelet Count 254 CUMM 150-450 Mean Platelet Volume 8.5 um3 7.4-10.4 Gran % 55.4 % 38-83 Lymph % 29.6 % 25-47 Mononuclear % 7.1 % 1-9 Eosinophil % 7.5 % High 0-6 Basophil % 0.4 % 0-2 Abs Lymphs 2.2 1.0-4.8 Abs Mononuclear 0.5 0-0.8 Absolute Neutrophil Count 4.1 1.5-7.7 Abs Eosinophils 0.6 0-0.6 Abs Basophils 0 0-0.2 Comp Metabolic Panel 02/26/2009 Sodium 139 mmol/L 135-145 Potassium 4.6 mmol/L 3.5-5.0 Chloride 102 mmol/L 101-111 Co2 (Carbon Dioxide) 27.0 mmol/L 22-32 Anion Gap 10.0 mmol/L 2-11 77 Glucose 144 mg/dL High 70-100 78 BUN 13 mg/dL 6-24 Creatinine 0.70 mg/dL 0.50-1.40 One Over Creatinine 1.40 BUN/Creatinine Ratio 18.6 8-20 Calcium 9.8 mg/dL 8.1-9.9 79 Total Protein 6.6 GM/DL 6.2-8.1 Albumin 4.1 GM/DL 3.6-5.4 Globulin 2.5 GM/DL 2-4 Albumin/Globulin Ratio 1.6 1-3 Bilirubin Total 0.8 mg/dL 0.4-1.5 80 Alkaline Phosphatase 49 U/L 39-117 Alt (SGPT) 33 U/L 17-63 Ast (Sgot) 33 U/L 12-42 Laboratory test finding 02/26/2009 Uric Acid 10.3 mg/dL High 2.6-7.2 TSH 3.03 MIU/ML 0.34-5.60 PSA Screening 0.93 NG/ML 0-4 81 Hemoglobin A1c 7.3 % High <6.0 82 Lipid Profile (Trig/Chol/HDL) 02/26/2009 Triglyceride 269 mg/dL High 40- 200 Cholesterol 131 mg/dL Less Than 200 83 High Density Lipoprotein 25 mg/dL Low 40-60 84 Cholesterol/HDL Ratio 5.24 AVERAGE High 1-4.97 Low Density Lipoprotein 52 mg/dL Less Than 100 85 Laboratory test finding 03/14/2008 Glucose 160 mg/dL High 70-105 64 Hemoglobin A1c 7.4 % High <6.0 64, 86 Liver Function Panel 03/14/2008 Total Protein 6.8 GM/DL 6.2-8.1 64 Albumin 4.2 GM/DL 3.6-5.4 64 Globulin 2.6 GM/DL 2-4 64 Albumin/Globulin Ratio 1.6 1-3 64 Bilirubin Total 0.8 mg/dL 0.4-1.5 64 Bilirubin Direct 0.2 mg/dL 0.1-0.5 64 Indirect Bilirubin 0.6 mg/dL 0.1-0.75 64 Alkaline Phosphatase 48 U/L 39-117 64 Alt (SGPT) 43 U/L 17-63 64 Ast (Sgot) 42 U/L 12-42 64 Lipid Profile (Trig/Chol/HDL) 03/14/2008 Triglyceride 196 mg/dL 40-200 64 Cholesterol 110 mg/dL Less Than 200 64, 87 High Density Lipoprotein 24 mg/dL Low 40-60 64, 88 Cholesterol/HDL Ratio 4.58 AVERAGE 1-4.97 64 Low Density Lipoprotein 47 mg/dL Less Than 100 64, 89 Laboratory test finding 09/19/2007 PSA Screening 0.92 NG/ML 0-4 64, 90 Hemoglobin A1c 7.3 % High <6.0 64, 91 Basic Metabolic Panel 09/19/2007 One Over Creatinine 1.11 64 Anion Gap 7.0 mmol/L 2-11 64, 92 BUN 13 mg/dL 6-24 64 Calcium 8.8 mg/dL 8.7-10.2 64 Chloride 102 mmol/L 101-111 64 Co2 (Carbon Dioxide) 26.0 mmol/L 22-32 64 Glucose 149 mg/dL High 70-105 64 Potassium 4.5 mmol/L 3.5-5.0 64 Sodium 135 mmol/L 135-145 64 BUN/Creatinine Ratio 14.4 8-20 64 Creatinine 0.9 mg/dL 0.5-1.4 64 Laboratory test finding 06/20/2007 Hemoglobin A1c 7.3 % High <6.0 93, 94 Basic Metabolic Panel 06/20/2007 One Over Creatinine 1.00 93 Anion Gap 8.0 mmol/L 2-11 93, 95 BUN 17 mg/dL 6-24 93 Calcium 9.5 mg/dL 8.7-10.2 93 Chloride 104 mmol/L 101-111 93 Co2 (Carbon Dioxide) 29.0 mmol/L 22-32 93 Glucose 167 mg/dL High 70-105 93 Potassium 4.8 mmol/L 3.5-5.0 93 Sodium 141 mmol/L 135-145 93 BUN/Creatinine Ratio 17.0 8-20 93 Creatinine 1.0 mg/dL 0.5-1.4 93 Laboratory test finding 05/11/2007 TSH 2.66 MIU/ML 0.34-5.60 96 Lipid Profile 05/11/2007 Cholesterol/HDL 5.67 AVERAGE High 1-4.97 96 (Trig/Chol/HDL) Ratio Cholesterol 119 mg/dL Less Than 200 96, 97 Triglyceride 283 mg/dL High 40-200 96 High Density Lipoprotein 21 mg/dL Low 40-60 96, 98 Low Density Lipoprotein 41 mg/dL Less Than 100 96, 99 Comp Metabolic Panel 05/11/2007 One Over Creatinine 1.11 96 Anion Gap 10.0 mmol/L 2-11 96, 100 Albumin/Globulin Ratio 1.7 1-3 96 Albumin 4.1 GM/DL 3.6-5.4 96 Alkaline Phosphatase 52 U/L 39-117 96 Alt (SGPT) 47 U/L 17-63 96 Ast (Sgot) 59 U/L High 12-42 96 BUN 8 mg/dL 6-24 96 Calcium 9.2 mg/dL 8.7-10.2 96 Chloride 101 mmol/L 101-111 96 Co2 (Carbon Dioxide) 27.0 mmol/L 22-32 96 Globulin 2.4 GM/DL 2-4 96 Glucose 184 mg/dL High 70-105 96 Potassium 4.4 mmol/L 3.5-5.0 96 Sodium 138 mmol/L 135-145 96 Bilirubin Total 0.8 mg/dL 0.4-1.5 96 Total Protein 6.5 GM/DL 6.2-8.1 96 BUN/Creatinine Ratio 8.9 8-20 96 Creatinine 0.9 mg/dL 0.5-1.4 96 CBC W/ Electronic Diff 05/11/2007 White Blood Count 7.8 CUMM 4.8-10.8 96 Abs Basophils 0.1 0-0.2 96 Abs Eosinophils 0.6 0-0.6 96 Absolute Neutrophil Count 4.7 1.5-7.7 96 Abs Lymphs 1.9 1.0-4.8 96 Abs Mononuclear 0.5 0-0.8 96 Basophil % 0.7 % 0-2 96 Hematocrit 39 % Low 42-52 96 Hemoglobin 13.2 g/dL Low 14.0-18.0 96 Eosinophil % 7.5 % High 0-6 96 Gran % 60.8 % 38-83 96 Lymph % 24.3 % 20-45 96 Mean Corpuscular HGB Cone 34 g/dL 32-36 96 Mean Corpuscular Hemoglob 29 pg 27-31 96 Mean Corpuscular Volume 85 um3 80-94 96 Mean Platelet Volume 8.8 um3 7.4-10.4 96 Mononuclear % 6.7 % 1-9 96 Platelet Count 251 CUMM 150-450 96 Red Cell Count 4.54 CUMM Low 4.6-6.2 96 Redcell Distribution WDTH 13 % 10.5-15 96 1 Because ethnic data is not always readily available, this report includes an eGFR for both -Americans and non- Americans. The National Kidney Disease Education Program (NKDEP) does not endorse the use of the MDRD equation for patients that are not between the ages of 18 and 70, are , have extremes of body size, muscle mass, or nutritional status, or are non- or non-. According to the National Kidney Foundation, irrespective of diagnosis, the stage of the disease is based on the level of kidney function: Stage Description GFR(mL/min/1.73 m(2)) 1 Kidney damage with normal or decreased GFR 90 2 Kidney damage with mild decrease in GFR 60-89 3 Moderate decrease in GFR 30-59 4 Severe decrease in GFR 15-29 5 Kidney failure <15 (or dialysis) 2 Desirable: <150 Borderline High: 150-199 High: 200-499 Very High: >500 3 Desirable: <200 Borderline High: 200-239 High: >239 4 Low: <40 Desirable: 40-60 High: >60 5 Desirable: <100 Near Optimal: 100-129 Borderline High: 130-159 High: 160-189 Very High: >189 6 Therapeutic target for the treatment of diabetes mellitus patients is <7% HBA1C, and in selective patients <6.0%. Please refer to [place] [employer] diabetic care guidelines for further information. 7 Unable to calculate due to low microalbumin 8 Because ethnic data is not always readily available, this report includes an eGFR for both -Americans and non- Americans. The National Kidney Disease Education Program (NKDEP) does not endorse the use of the MDRD equation for patients that are not between the ages of 18 and 70, are , have extremes of body size, muscle mass, or nutritional status, or are non- or non-. According to the National Kidney Foundation, irrespective of diagnosis, the stage of the disease is based on the level of kidney function: Stage Description GFR(mL/min/1.73 m(2)) 1 Kidney damage with normal or decreased GFR 90 2 Kidney damage with mild decrease in GFR 60-89 3 Moderate decrease in GFR 30-59 4 Severe decrease in GFR 15-29 5 Kidney failure <15 (or dialysis) 9 Desirable <150 Borderline high 150-199 High 200-499 Very High >500 10 Desirable <200 Borderline high 200-239 High >239 11 Low <40 Desirable: 40-60 High: >60 12 Desirable: <100 mg/dL Near Optimal: 100-129 mg/dL Borderline High: 130-159 mg/dL High: 160-189 mg/dL Very High: >189 mg/dL 13 Therapeutic target for the treatment of diabetes Mellitus patients is <7% HBA1C, and in selective patients <6.0%.Please refer to [place] [employer] Diabetic care guidelines for further information. 14 Unable to calculate due to low microalbumin 15 Because ethnic data is not always readily available, this report includes an eGFR for both -Americans and non- Americans. The National Kidney Disease Education Program (NKDEP) does not endorse the use of the MDRD equation for patients that are not between the ages of 18 and 70, are , have extremes of body size, muscle mass, or nutritional status, or are non- or non-. According to the National Kidney Foundation, irrespective of diagnosis, the stage of the disease is based on the level of kidney function: Stage Description GFR(mL/min/1.73 m(2)) 1 Kidney damage with normal or decreased GFR 90 2 Kidney damage with mild decrease in GFR 60-89 3 Moderate decrease in GFR 30-59 4 Severe decrease in GFR 15-29 5 Kidney failure <15 (or dialysis) 16 Therapeutic target for the treatment of diabetes Mellitus patients is <7% HBA1C, and in selective patients <6.0%.Please refer to [place] [employer] Diabetic care guidelines for further information. 17 Desirable <150 Borderline high 150-199 High 200-499 Very High >500 18 Desirable <200 Borderline high 200-239 High >239 19 Low <40 Desirable: 40-60 High: >60 20 Desirable: <100 mg/dL Near Optimal: 100-129 mg/dL Borderline High: 130-159 mg/dL High: 160-189 mg/dL Very High: >189 mg/dL 21 Therapeutic target for the treatment of diabetes Mellitus patients is <7% HBA1C, and in selective patients <6.0%.Please refer to [place] [employer] Diabetic care guidelines for further information. 22 Therapeutic target for the treatment of diabetes Mellitus patients is <7% HBA1C, and in selective patients <6.0%.Please refer to [place] [employer] Diabetic care guidelines for further information. 23 Because ethnic data is not always readily available, this report includes an eGFR for both -Americans and non- Americans. The National Kidney Disease Education Program (NKDEP) does not endorse the use of the MDRD equation for patients that are not between the ages of 18 and 70, are , have extremes of body size, muscle mass, or nutritional status, or are non- or non-. According to the National Kidney Foundation, irrespective of diagnosis, the stage of the disease is based on the level of kidney function: Stage Description GFR(mL/min/1.73 m(2)) 1 Kidney damage with normal or decreased GFR 90 2 Kidney damage with mild decrease in GFR 60-89 3 Moderate decrease in GFR 30-59 4 Severe decrease in GFR 15-29 5 Kidney failure <15 (or dialysis) 24 Because ethnic data is not always readily available, this report includes an eGFR for both -Americans and non- Americans. The National Kidney Disease Education Program (NKDEP) does not endorse the use of the MDRD equation for patients that are not between the ages of 18 and 70, are , have extremes of body size, muscle mass, or nutritional status, or are non- or non-. According to the National Kidney Foundation, irrespective of diagnosis, the stage of the disease is based on the level of kidney function: Stage Description GFR(mL/min/1.73 m(2)) 1 Kidney damage with normal or decreased GFR 90 2 Kidney damage with mild decrease in GFR 60-89 3 Moderate decrease in GFR 30-59 4 Severe decrease in GFR 15-29 5 Kidney failure <15 (or dialysis) 25 FASTING 26 Therapeutic target for the treatment of diabetes Mellitus patients is <7% HBA1C, and in selective patients <6.0%.Please refer to [place] [employer] Diabetic care guidelines for further information. 27 Because ethnic data is not always readily available, this report includes an eGFR for both -Americans and non- Americans. The National Kidney Disease Education Program (NKDEP) does not endorse the use of the MDRD equation for patients that are not between the ages of 18 and 70, are , have extremes of body size, muscle mass, or nutritional status, or are non- or non-. According to the National Kidney Foundation, irrespective of diagnosis, the stage of the disease is based on the level of kidney function: Stage Description GFR(mL/min/1.73 m(2)) 1 Kidney damage with normal or decreased GFR 90 2 Kidney damage with mild decrease in GFR 60-89 3 Moderate decrease in GFR 30-59 4 Severe decrease in GFR 15-29 5 Kidney failure <15 (or dialysis) 28 Desirable <150 Borderline high 150-199 High 200-499 Very High >500 29 Desirable <200 Borderline high 200-239 High >239 30 Low <40 Desirable: 40-60 High: >60 31 Desirable <100 Near Optimal 100-129 Borderline high 130-159 High 160-189 Very High >189 32 Because ethnic data is not always readily available, this report includes an eGFR for both -Americans and non- Americans. The National Kidney Disease Education Program (NKDEP) does not endorse the use of the MDRD equation for patients that are not between the ages of 18 and 70, are , have extremes of body size, muscle mass, or nutritional status, or are non- or non-. According to the National Kidney Foundation, irrespective of diagnosis, the stage of the disease is based on the level of kidney function: Stage Description GFR(mL/min/1.73 m(2)) 1 Kidney damage with normal or decreased GFR 90 2 Kidney damage with mild decrease in GFR 60-89 3 Moderate decrease in GFR 30-59 4 Severe decrease in GFR 15-29 5 Kidney failure <15 (or dialysis) 33 FASTING 34 It is recognized that currently available assays for the detection of antibodies to HIV-1 and/or HIV-2 may not detect all infected individuals. HIV antibodies may be undetectable in some stages of the infection and in some clinical conditions. The performance of this assay has not been established for populations of infants or children. Assayed by Chemiluminescence Microparticle Immunoassay on the Siemens Advia Centaur CP. Values obtained with different methods or kits cannot be used interchangeably.The diagnostic specificity of the ADVIA Centaur 1/O/2 Enhanced assay in the low risk population was 99.90% (6052/6058) with a 95% confidence interval of 99.78 to 99.96%. 35 Microalbuminuria in a random sample is defined as: Microalbumin/Creatinine ratio of 30-299 ug/mg. 36 HDL Interpretation: Undesirable: High Risk: Less than 40 mg/dL Desirable: Low Risk: Greater than 60 mg/dL 37 LDL Interpretation: Low Risk Optimal Level: LDL Less than 100 mg/dL Near or Above Optimal: LDL 100-129 mg/dL Borderline High Risk: LDL 130-159 mg/dL High Risk: LDL 160-189 mg/dL Very High Risk: LDL Greater than 189 mg/dL 38 Therapeutic target for the treatment of diabetes Mellitus patients is <7% HBA1C, and in selective patients <6.0%.Please refer to [place] [employer] Diabetic care guidelines for further information. 39 RUN DATE: 05/26/13 [facility] LAB LIVE PAGE 1 RUN TIME: [address] [place] [address] Specimen Inquiry Name: GAVINO HANDLEY : [address]: Josh Méndez MD Acct: [id number] Unit: [id number] AGE: 62 Location: ENDO Re05/23/13 SEX: M Status: REG REF SPEC: [id number] NATALIE: 05/23/13- SUBM DR: Josh Méndez MD REQ: [id number] RECD: 05/23/131404 STATUS: SAMANTHA GHOSH DR: Rell Saldana III, MD _ ORDERED: LEVEL IV FINAL DIAGNOSIS Stomach, biopsy: Hyperplastic polyp; see comment. COMMENT: Histologic sections show a polypoid fragment of body-type gastric mucosa with foveolar hyperplasia and a fibrin and inflammatory crust on the surface. Deeper levels of sectioning show similar histologic features. CLINICAL HISTORY History of gastric polyps 01/03/2013, 4 1/2 months, abdomen obese, rectal - soft brown POST-OPERATIVE DIAGNOSIS EGD, Larynx normal, esophagus - normal, distal esophagus with ext. lump, Stomach polyps, NERY with good dessication, duodenum normal 1) gastric polyp, 2) heme positive ???, 3) Ext lump of esophagus GROSS DESCRIPTION The specimen is received in formalin labeled Gavino Handley, Gastric Polyp and consists of a 0.8 x 0.7 x 0.6 cm. polypoid portion of purple, white, and philip tissue. The specimen is serially sectioned and entirely submitted, one cassette. Signed (signature on file) Larisa Xavier MD 1850 END OF REPORT * ML=Testing performed at Main Lab DEPARTMENT OF PATHOLOGY, [facility] [address] [place], [place] [address] Leonidas Bahena M.D. Director [facility] Permit #[id number] RUN DATE: 05/23/13 [facility] LAB LIVE PAGE 1 RUN TIME: 4271 [facility] [address] [place], [place] [address] Specimen Inquiry Name: GAVINO HANDLEY : [address]: Josh Méndez MD Acct: [id number] Unit: [id number] AGE: 62 Location: ENDO Re05/23/13 SEX: M Status: REG REF SPEC: [id number] NATALIE: 05/23/13 DR: Josh Méndez MD REQ: [id number] RECD: 05/23/13 STATUS: COMP DAVINA DR: Rell Saldana III, MD _ SOURCE: STOOL SPDESC: ORDERED: Hemoccult Procedure Result Verified Site Stool Specimen Description Final 05/23/13- 1449 ML Test not performed Stool Occult Blood Final 05/23/13- 1449 ML Stool Occult Blood Negative END OF REPORT * ML=Testing performed at Main Lab DEPARTMENT OF PATHOLOGY, [address] [place] [address] Leonidas Bahena M.D. Director [facility] Permit #[id number] RUN DATE: 01/05/13 [facility] LAB LIVE PAGE 1 RUN TIME: [address] [place] [address] Specimen Inquiry Name: GAVINO HANDLEY : [address]: Josh Méndez MD Acct: [id number] Unit: [id number] AGE: 62 Location: ENDO Re01/03/13 SEX: M Status: REG REF SPEC: [id number] NATALIE: 01/03/13- SUBM DR: Josh Méndez MD REQ: [id number] RECD: 01/03/131455 STATUS: SAMANTHA GHOSH DR: Rell Saldana III, MD _ ORDERED: LEVEL IV/4 FINAL DIAGNOSIS 1. Small bowel, third portion of duodenum, biopsy: A. Small bowel mucosa with normal villous architecture and no significant pathologic abnormality. B. No infectious agents or viropathic changes identified. 2. Stomach, greater curvature polyp, biopsy: A. Tubulovillous adenoma. B. No high grade dysplasia identified. C. No evidence of invasive carcinoma identified. 3. Colon, mid right, biopsy: A. Tubular adenoma. B. No high grade dysplasia or malignancy. 4. Colon, sigmoid, biopsy: Hyperplastic polyp. CLINICAL HISTORY Iron deficiency anemia, melena, history of polyps POST-OPERATIVE DIAGNOSIS Hiatal hernia, antral polyp, colon polyps GROSS DESCRIPTION 1. The specimen is received in formalin labeled Gavino Handley, Third Portion Duodenum, and consists of multiple philip, soft tissue fragments measuring 0.7 x 0.4 x 0.2 cm. Submitted entirely, one cassette. CONTINUED ON NEXT PAGE * ML=Testing performed at Main Lab DEPARTMENT OF PATHOLOGY, [facility] [address], [place] [address] Leonidas Bahena M.D. Director [facility] Permit #[id number] RUN DATE: 01/05/13 [facility] LAB LIVE PAGE 2 RUN TIME: 144 [facility] [address] [place], [place] [address] Specimen Inquiry Patient: GAVINO HANDLEY [id number] (Continued) GROSS DESCRIPTION (Continued) GROSS DESCRIPTION (Continued) 2. The specimen is received in formalin labeled Gavino JaureguiAllyn Ender, Proximal Antral Greater Curvature Polyp, and consists of a polypoid philip, soft tissue fragment measuring 0.6 x 0.3 x 0.3 cm. Submitted entirely, one cassette. 3. The specimen is received in formalin labeled Gavino Noah Ender, Sessile Mid Right Colon Polyp, and consists of two, philip, soft tissue fragments measuring 0.8 x 0.7 x 0.3 cm. Submitted entirely, one cassette. 4. The specimen is received in formalin labeled Gavino Noah Ender, Distal Sigmoid Colon Polyp at 22 cm., and consists of a philip, soft tissue fragment measuring 0.3 x 0.3 x 0.2 cm. Submitted entirely, one cassette. Signed (signature on file) Leonidas Bahena MD 1446 END OF REPORT * ML=Testing performed at Main Lab DEPARTMENT OF PATHOLOGY, [address] [place] [address] Leonidas Bahena M.D. Director [facility] Permit #[id number] 42 Because ethnic data is not always readily available, this report includes an eGFR for both -Americans and non- Americans. The National Kidney Disease Education Program (NKDEP) does not endorse the use of the MDRD equation for patients that are not between the ages of 18 and 70, are , have extremes of body size, muscle mass, or nutritional status, or are non- or non-. According to the National Kidney Foundation, irrespective of diagnosis, the stage of the disease is based on the level of kidney function: Stage Description GFR(mL/min/1.73 m(2)) 1 Kidney damage with normal or decreased GFR 90 2 Kidney damage with mild decrease in GFR 60-89 3 Moderate decrease in GFR 30-59 4 Severe decrease in GFR 15-29 5 Kidney failure <15 (or dialysis) 43 Because ethnic data is not always readily available, this report includes an eGFR for both -Americans and non- Americans. The National Kidney Disease Education Program (NKDEP) does not endorse the use of the MDRD equation for patients that are not between the ages of 18 and 70, are , have extremes of body size, muscle mass, or nutritional status, or are non- or non-. According to the National Kidney Foundation, irrespective of diagnosis, the stage of the disease is based on the level of kidney function: Stage Description GFR(mL/min/1.73 m(2)) 1 Kidney damage with normal or decreased GFR 90 2 Kidney damage with mild decrease in GFR 60-89 3 Moderate decrease in GFR 30-59 4 Severe decrease in GFR 15-29 5 Kidney failure <15 (or dialysis) 44 Because ethnic data is not always readily available, this report includes an eGFR for both -Americans and non- Americans. The National Kidney Disease Education Program (NKDEP) does not endorse the use of the MDRD equation for patients that are not between the ages of 18 and 70, are , have extremes of body size, muscle mass, or nutritional status, or are non- or non-. According to the National Kidney Foundation, irrespective of diagnosis, the stage of the disease is based on the level of kidney function: Stage Description GFR(mL/min/1.73 m(2)) 1 Kidney damage with normal or decreased GFR 90 2 Kidney damage with mild decrease in GFR 60-89 3 Moderate decrease in GFR 30-59 4 Severe decrease in GFR 15-29 5 Kidney failure <15 (or dialysis) 45 Desirable: Less than 200 MG/DL Borderline-High Risk: 200-239 MG/DL High-Risk: 240 MG/DL and over 46 HDL Interpretation: Undesirable: High Risk: Less than 40 MG/DL Desirable: Low Risk: Greater than 60 MG/DL 47 Microalbuminuria in a random sample is defined as: Microalbumin/Creatinine ratio of 30-299 ug/mg. 48 Therapeutic target for the treatment of diabetes Mellitus patients is <7% HBA1C, and in selective patients <6.0%.Please refer to [place] [employer] Diabetic care guidelines for further information. 49 Anion gap measurement may be of limited value in the presence of any alkalosis, especially in a combined acid base disorder. . 50 A metabolite of Naproxen, O-desmethylnaproxen, has been shown to interfere with the [place] method for measuring total bilirubin. Samples from patients who have taken Naproxen have shown spurious elevation in total bilirubin levels. 51 Because ethnic data is not always readily available, this report includes an eGFR for both -Americans and non- Americans. The National Kidney Disease Education Program (NKDEP) does not endorse the use of the MDRD equation for patients that are not between the ages of 18 and 70, are , have extremes of body size, muscle mass, or nutritional status, or are non- or non-. According to the National Kidney Foundation, irrespective of diagnosis, the stage of the disease is based on the level of kidney function: Stage Description GFR(mL/min/1.73 m(2)) 1 Kidney damage with normal or decreased GFR 90 2 Kidney damage with mild decrease in GFR 60-89 3 Moderate decrease in GFR 30-59 4 Severe decrease in GFR 15-29 5 Kidney failure <15 (or dialysis) 52 CHOLESTEROL INTERPRETATION: Desirable: Less than 200 MG/DL Borderline-High Risk: 200-239 MG/DL High-Risk: 240 MG/DL and over 53 HDL INTERPRETATION: Undesirable: High Risk: Less than 40 MG/DL Desirable: Low Risk: Greater than 60 MG/DL 54 LDL INTERPRETATION: Low Risk Optimal Level: LDL Less than 100 MG/DL Near or Above Optimal: LDL 100-129 MG/DL Borderline High Risk: LDL 130-159 MG/DL High Risk: LDL 160-189 MG/DL Very High Risk: LDL Greater than 189 MG/DL 55 THERAPEUTIC TARGET FOR THE TREATMENT OF DIABETES MELLITUS PATIENTS IS <7% HBA1C, AND IN SELECTIVE PATIENTS <6.0%. PLEASE REFER TO [place] [employer] DIABETIC CARE GUIDELINES FOR FURTHER INFORMATION. 56 Anion gap measurement may be of limited value in the presence of any alkalosis, especially in a combined acid base disorder. . 57 A metabolite of Naproxen, O-desmethylnaproxen, has been shown to interfere with the [place] method for measuring total bilirubin. Samples from patients who have taken Naproxen have shown spurious elevation in total bilirubin levels. 58 Because ethnic data is not always readily available, this report includes an eGFR for both -Americans and non- Americans. The National Kidney Disease Education Program (NKDEP) does not endorse the use of the MDRD equation for patients that are not between the ages of 18 and 70, are , have extremes of body size, muscle mass, or nutritional status, or are non- or non-. According to the National Kidney Foundation, irrespective of diagnosis, the stage of the disease is based on the level of kidney function: Stage Description GFR(mL/min/1.73 m(2)) 1 Kidney damage with normal or decreased GFR 90 2 Kidney damage with mild decrease in GFR 60-89 3 Moderate decrease in GFR 30-59 4 Severe decrease in GFR 15-29 5 Kidney failure <15 (or dialysis) 59 CHOLESTEROL INTERPRETATION: Desirable: Less than 200 MG/DL Borderline-High Risk: 200-239 MG/DL High-Risk: 240 MG/DL and over 60 HDL INTERPRETATION: Undesirable: High Risk: Less than 40 MG/DL Desirable: Low Risk: Greater than 60 MG/DL 61 LDL INTERPRETATION: Low Risk Optimal Level: LDL Less than 100 MG/DL Near or Above Optimal: LDL 100-129 MG/DL Borderline High Risk: LDL 130-159 MG/DL High Risk: LDL 160-189 MG/DL Very High Risk: LDL Greater than 189 MG/DL 62 THERAPEUTIC TARGET FOR THE TREATMENT OF DIABETES MELLITUS PATIENTS IS <7% HBA1C, AND IN SELECTIVE PATIENTS <6.0%. PLEASE REFER TO [place] [employer] DIABETIC CARE GUIDELINES FOR FURTHER INFORMATION. 63 * SERUM LEVELS OF PSA MEASURED USING THE [employer] ACCESS HYBRITECH IMMUNOASSAY SHOULD NOT BE INTERPRETED ABSOLUTE EVIDENCE OF THE PRESENCE OR ABSENCE OF DISEASE. THE PSA VALUE SHOULD BE USED IN CONJUNCTION WITH OTHER PERTINENT CLINICAL DIAGNOSTIC PROCEDURES. 64 PATIENT MAY HAVE RESULTS PER DOCTOR'S AUTHORIZATION. Questions regarding this report should be directed to your doctor. 65 Anion gap measurement may be of limited value in the presence of any alkalosis, especially in a combined acid base disorder. . 66 Note change in reference range as of 04/26/08. The change was based on recommendations from the [place] [employer]. 67 Please note change in reference range effective 08 . 68 Because ethnic data is not always readily available, this report includes an eGFR for both -Americans and non- Americans. The National Kidney Disease Education Program (NKDEP) does not endorse the use of the MDRD equation for patients that are not between the ages of 18 and 70, are , have extremes of body size, muscle mass, or nutritional status, or are non- or non-. According to the National Kidney Foundation, irrespective of diagnosis, the stage of the disease is based on the level of kidney function: Stage Description GFR(mL/min/1.73 m(2)) 1 Kidney damage with normal or decreased GFR 90 2 Kidney damage with mild decrease in GFR 60-89 3 Moderate decrease in GFR 30-59 4 Severe decrease in GFR 15-29 5 Kidney failure <15 (or dialysis) 69 THERAPEUTIC TARGET FOR THE TREATMENT OF DIABETES MELLITUS PATIENTS IS <7% HBA1C, AND IN SELECTIVE PATIENTS <6.0%. PLEASE REFER TO [place] [employer] DIABETIC CARE GUIDELINES FOR FURTHER INFORMATION. 70 Anion gap measurement may be of limited value in the presence of any alkalosis, especially in a combined acid base disorder. . 71 Note change in reference range as of 04/26/08. The change was based on recommendations from the [place] [employer]. 72 Please note change in reference range effective 08 . 73 A metabolite of Naproxen, O-desmethylnaproxen, has been shown to interfere with the [place] method for measuring total bilirubin. Samples from patients who have taken Naproxen have shown spurious elevation in total bilirubin levels. 74 Because ethnic data is not always readily available, this report includes an eGFR for both -Americans and non- Americans. The National Kidney Disease Education Program (NKDEP) does not endorse the use of the MDRD equation for patients that are not between the ages of 18 and 70, are , have extremes of body size, muscle mass, or nutritional status, or are non- or non-. According to the National Kidney Foundation, irrespective of diagnosis, the stage of the disease is based on the level of kidney function: Stage Description GFR(mL/min/1.73 m(2)) 1 Kidney damage with normal or decreased GFR 90 2 Kidney damage with mild decrease in GFR 60-89 3 Moderate decrease in GFR 30-59 4 Severe decrease in GFR 15-29 5 Kidney failure <15 (or dialysis) 75 New Reference Range and Interpretation effective 06/09/2002 TnI (ng/ml) INTERPRETATION Less Than 0.06 ng/mL NOT SUPPORTIVE OF DIAGNOSIS OF [place] 0.06 - 0.50 ng/ml INDETERMINATE: SUGGEST SERIAL STUDIES IF CLINICALLY INDICATED. Greater than 0.5 ng/mL CONSISTENT WITH DIAGNOSIS OF [place] . 76 PLEASE NOTE NEW REFERENCE RANGES. 77 Anion gap measurement may be of limited value in the presence of any alkalosis, especially in a combined acid base disorder. . 78 Note change in reference range as of 04/26/08. The change was based on recommendations from the [place] [employer]. 79 Please note change in reference range effective 08 . 80 A metabolite of Naproxen, O-desmethylnaproxen, has been shown to interfere with the [place] method for measuring total bilirubin. Samples from patients who have taken Naproxen have shown spurious elevation in total bilirubin levels. 81 * SERUM LEVELS OF PSA MEASURED USING THE [employer] ACCESS HYBRITECH IMMUNOASSAY SHOULD NOT BE INTERPRETED ABSOLUTE EVIDENCE OF THE PRESENCE OR ABSENCE OF DISEASE. THE PSA VALUE SHOULD BE USED IN CONJUNCTION WITH OTHER PERTINENT CLINICAL DIAGNOSTIC PROCEDURES. 82 THERAPEUTIC TARGET FOR THE TREATMENT OF DIABETES MELLITUS PATIENTS IS <7% HBA1C, AND IN SELECTIVE PATIENTS <6.0%. PLEASE REFER TO [place] [employer] DIABETIC CARE GUIDELINES FOR FURTHER INFORMATION. 83 CHOLESTEROL INTERPRETATION: Desirable: Less than 200 MG/DL Borderline-High Risk: 200-239 MG/DL High-Risk: 240 MG/DL and over 84 HDL INTERPRETATION: Undesirable: High Risk: Less than 40 MG/DL Desirable: Low Risk: Greater than 60 MG/DL 85 LDL INTERPRETATION: Low Risk Optimal Level: LDL Less than 100 MG/DL Near or Above Optimal: LDL 100-129 MG/DL Borderline High Risk: LDL 130-159 MG/DL High Risk: LDL 160-189 MG/DL Very High Risk: LDL Greater than 189 MG/DL 86 THERAPEUTIC TARGET FOR THE TREATMENT OF DIABETES MELLITUS PATIENTS IS <7% HBA1C, AND IN SELECTIVE PATIENTS <6.0%. PLEASE REFER TO [place] [employer] DIABETIC CARE GUIDELINES FOR FURTHER INFORMATION. 87 CHOLESTEROL INTERPRETATION: Desirable: Less than 200 MG/DL Borderline-High Risk: 200-239 MG/DL High-Risk: 240 MG/DL and over 88 HDL INTERPRETATION: Undesirable: High Risk: Less than 40 MG/DL Desirable: Low Risk: Greater than 60 MG/DL 89 LDL INTERPRETATION: Low Risk Optimal Level: LDL Less than 100 MG/DL Near or Above Optimal: LDL 100-129 MG/DL Borderline High Risk: LDL 130-159 MG/DL High Risk: LDL 160-189 MG/DL Very High Risk: LDL Greater than 189 MG/DL 90 * SERUM LEVELS OF PSA MEASURED USING THE [employer] ACCESS HYBRITECH IMMUNOASSAY SHOULD NOT BE INTERPRETED ABSOLUTE EVIDENCE OF THE PRESENCE OR ABSENCE OF DISEASE. THE PSA VALUE SHOULD BE USED IN CONJUNCTION WITH OTHER PERTINENT CLINICAL DIAGNOSTIC PROCEDURES. 91 THERAPEUTIC TARGET FOR THE TREATMENT OF DIABETES MELLITUS PATIENTS IS <7% HBA1C, AND IN SELECTIVE PATIENTS <6.0%. PLEASE REFER TO [place] [employer] DIABETIC CARE GUIDELINES FOR FURTHER INFORMATION. 92 Anion gap measurement may be of limited value in the presence of any alkalosis, especially in a combined acid base disorder. . 93 FASTING PATIENT MAY HAVE RESULTS PER DOCTOR'S AUTHORIZATION. Questions regarding this report should be directed to your doctor. 94 THERAPEUTIC TARGET FOR THE TREATMENT OF DIABETES MELLITUS PATIENTS IS <7% HBA1C, AND IN SELECTIVE PATIENTS <6.0%. PLEASE REFER TO [place] [employer] DIABETIC CARE GUIDELINES FOR FURTHER INFORMATION. 95 Anion gap measurement may be of limited value in the presence of any alkalosis, especially in a combined acid base disorder. . 96 PATIENT MAY HAVE RESULTS PER DOCTOR'S AUTHORIZATION. Questions regarding this report should be directed to your doctor. 97 Classification: Desirable . 98 Classification: Low . 99 CALCULATED LDL APPROXIMATES THE VALUE OF A DIRECT LDL MEASUREMENT. Classification: Optimal Level . 100 Anion gap measurement may be of limited value in the presence of any alkalosis, especially in a combined acid base disorder. . Procedures Date CPT Code Description Status 06/28/2018 42153 EKG Tracing & Interpretation Completed 04/18/2018 87779 Inject/Drain Joint/Bursa Major W/O US Completed 04/18/2018 63834 Inject/Drain Joint/Bursa Major W/O US Completed 03/29/2018 31755 EKG Tracing & Interpretation Completed 03/07/2018 98736 EKG Tracing & Interpretation Completed 03/01/2018 91180 Moderate Sedation Services; Same Phys Intl 15 Mins; PT Completed >=5 Years 03/01/2018 14769 Color Flow Doppler/Interp & Reprt Completed 03/01/2018 29861 Pulse Wave/Continuous-Interp.RPT Completed 03/01/2018 88000 Echocardiography, Transesophageal, Real Time W/Image 2D Completed W/W/O M-M 03/01/2018 83456 EKG, Interpretation Only Completed 03/01/2018 95349 Cardioversion Completed 02/22/2018 56362 EKG Tracing & Interpretation Completed 02/18/2018 81564 Holter Monitor Review (24 hr)dr review & interp only Completed 02/14/2018 86784 ECG Monitor/Recording W/Visual Superimposition Scanning Completed 02/01/2018 58465 ECHO Transthorasic Realtime 2D W Doppler & Color Flow Completed Hosp 02/01/2018 20071 EKG, Interpretation Only Completed 09/13/201727611 Inject/Drain Joint/Bursa Major W/O US Completed 03/15/2017 Diabetic Retinal Eye Exam Completed 02/08/201728664 Inject/Drain Joint/Bursa Major W/O US Completed 12/02/2016 Inject/Drain Joint/Bursa Major W/O US Completed 07/29/2016 Inject/Drain Joint/Bursa Major W/O US Completed 02/24/2016 Diabetic Retinal Eye Exam Completed 01/13/201663603 Inject/Drain Joint/Bursa Major W/O US Completed 11/05/2014 Diabetic Retinal Eye Exam Completed 10/11/2014 99219 EKG Tracing & Interpretation Completed 10/06/2013 Diabetic Retinal Eye Exam Completed 01/03/2013 Colonoscopy Completed 10/25/2012 03038 Polysomnography Sleep Staging 4+ Parameters W/Cpap Completed 09/20/2012 46497 Polysomnography Sleep Staging 4+ Parameters Completed 10/11/2009 32508 Treadmill Interp/Report Only Completed 10/11/2009 38298 Stress Test Supervsn W/Out I/R Completed 08/21/2009 68528 Holter Monitor Interpretation Completed 03/15/2003 Colonoscopy Completed Encounters Type Date Location Provider CPT E/M Dx Office Visit 04/11/2018 10:00a [facility] Internal Medicine Rell Sadlana, 86892 E11.9 - Armida Casiano I48.92 I10 G47.33 K21.9 Z23 Office Visit 04/04/2018 10:45a [facility] M.D. 60589 M17.11 Ahmet M17.12 Office Visit 03/29/2018 1:00p [facility] Naren Macario, 67415 I48.92 [facility] [place] [facility] [place] I10 Office Visit 02/22/2018 1:30p [facility] Naren Macario 00382 I48.92 [facility] AT [facility] [place] I10 Office Visit 02/01/2018 10:21a [facility] Naren Macario, 43231 I48.92 [facility] Maritza.Tash Office Visit 08/11/2017 10:15a [facility] M.D. 93118 M17.11 C.M.A. M17.12 M17.0 Office Visit 01/25/2017 10:45a [facility] M.D. 91207 M17.12 C.M.A. M17.11 Office Visit 10/23/2016 10:20a [facility] Internal Medicine Rell Saldana, 97201 E11.9 - Arrowisaac Casiano Office Visit 07/29/2016 10:45a [facility] M.D. 94110 M17.11 C.M.A. M17.12 Office Visit 07/27/2016 10:20a [facility] Internal Medicine Rell Saldana, 18065 I10 Arrowisaac Casinao E11.9 E78.2 G47.33 K21.9 Z00.01 Office Visit 01/20/2016 11:40a [facility] Internal Medicine Rell Saldana, 78779 I10 Teresa Casiano E11.9 E78.2 G47.33 Z23 Office Visit 01/13/2016 1:30p [facility] M.D. 04690 M17.0 C.M.A. Office Visit 02/04/2015 9:40a [facility] Internal Medicine Rell Saldana, 72997 250.00 [place] M.DAllyn 401.1 Office Visit 10/11/2014 10:00a [facility] Internal Medicine Rell Saldana, 51824 250.00 - [place] M.DAllyn 401.1 530.81 Office Visit 01/15/2014 9:40a [facility] Internal Medicine Rell Saldana, 75740 250.00 - [place] M.DAllyn 401.1 272.2 530.81 327.23 Office Visit 10/12/2013 10:20a [facility] Internal Medicine Rell Saldana, 19757 250.00 - [place] M.DAllyn Office Visit 08/23/2013 10:40a [facility] Internal Medicine Rell Saldana, 24160 250.00 - [place] M.D. 401.1 327.23 530.81 272.2 715.90 280.9 V73.89 V08 V04.81 Office Visit 11/15/2012 9:40a [facility] Internal Medicine Rell DemetriusAllyn Shana, 32011 280.9 - [place] M.D. 250.00 401.1 327.23 530.81 715.90 Office Visit 09/27/2012 9:29a Vinny Casillas, 22910 327.23 Disorder [facility] M.D. Office Visit 08/17/2012 11:20a [facility] Internal Medicine Rell EAllyn Saldana, 89487 250.00 - [place] M.D. 401.1 Office Visit 08/16/2012 11:12a Vinny Casillas, 78408 786.09 [facility] Center M.D. 794.2 Office Visit 07/11/2012 3:00p [facility] Internal Medicine Rell DemetriusAllyn Saldana, 94815 250.00 - [place] M.D. 401.1 272.2 530.81 V04.81 Office Visit 05/28/2011 4:00p DO Not Use Director Of Market Intelligence AT [facility], 49255 250.00 [facility].D. 401.1 272.2 530.81 V04.81 Office Visit 01/22/2011 1:20p DO Not Use Director Of Market Intelligence AT [facility], 13875 401.1 [facility] M.D. 250.00 Office Visit 11/12/2010 10:40a DO Not Use Director Of Market Intelligence AT [facility], 31732 401.1 [facility] M.D. 250.00 Office Visit 10/15/2010 1:00p DO Not Use Director Of Market Intelligence AT [facility], 00628 V70.0 [facility].D. 250.00 401.1 272.2 715.90 V04.81 Office Visit 08/28/2009 2:30p DO Not Use Director Of Market Intelligence AT [facility], 11888 786.59 [facility] M.D. Office Visit 03/06/2009 2:00p [facility] AT [facility], 81543 250.00 [facility].D. 401.1 V03.82 Office Visit 03/22/2008 9:45a [facility] AT [facility], 25420 250.00 [facility] M.D. 272.0 401.1 Office Visit 09/22/2007 3:00p [facility] 03431 250.00 [facility] M.D 272.0 401.1 Office Visit 06/22/2007 10:30a [facility] AT [facility], 80949 401.1 [facility] 250[facility]00 V04.81 Office Visit 05/18/2007 9:45a [facility], 61890 250.00 [facility] 401[facility]1 Plan of Care Future Appointment(s):07/19/2018 11:00 am - Nurse Visit IC at [facility]07/18/2018 11:00 am - Nurse Visit IC at [facility]2017 1:20 pm - Rell Saldana M.D. at [facility] Internal Medicine - Iymcfphxa86/23 /2018 - Adi Macario M.D.I48.92 Unspecified atrial flutterNew Orders: Holter MonitorFollow up:4 months
--- OUTSIDE RECORDS SUMMARY | 2018-07-21 18:34 | XMS REPORT ---
:1950 External Reference #:[id number] Author Organization [employer] Address [address] [place] [address] [place] [address] Phone [phone] Care Team Providers Name Role Phone Rell Saldana III, MD Primary Care Physician Unavailable Payers Type Date Identification Numbers Payment Provider Subscriber Health Maintenance Policy Number: Medicare Blue o Gavino Golden (O) [id number] Group Number: [id number] [address] PayID: [id number] JUAN Jacobson [address] Medigap Part B Expires: 05/05/2015 Policy Number: [id number] Medicare Gavino Handley PayID: [id number] [address] [place] [address] Medigap Part B Effective: 02/04/2014 Policy Number: BS Ramy Handley [id number] Expires: 07/06/2015 PayID: [id number] [address] [address] JUAN Jacobson [address] Medigap Part B Effective: 02/05/2012 Policy Number: BS Ramy Handley [id number] Expires: 02/03/2014 PayID: [id number] [address] [address] JUAN Jacobson [id number] Commercial Expires: 09/04/2015 PayID: [id number] Medicare D - Drug Plan Gavino Handley [...] Date Description Comments Lives With Alone 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 ly Twice A Day Accu-Chek [...] Day And as Shana, Needed M.D. Pen Mcintyre 09/25 Active 8mm 100un use with E11. [...] M.D. 08/06 breakfast Zostavax 09/10 Hx Solution 57791Vfv/ 1unit 1 dose s/c V70.0 Rell EAllyn Rec 0.65ML s Shana - M.DAllyn 10/11 Pen Mcintyre 08/23 Hx Misc 31G X 8 50uni [...] 100-25mg 30tab take 1 401.1 Rell Romo. Potassium/[place] s tablet by Shana chlorothiazide - mouth [...] Tablets 100-12.5m 30tab Take 1 Rell [place] Potassium/[place] g s Tablet By Shana chlorothiazide - [...] 10mg 90tab 1 po qd 401.1 Rell Cbua Bes Marcellus Lozano M.D. 03/02 Losartan 10/15 [...] Code Status Date Vaccine Reaction Lot # [id number] Given 04/11/2018 Pneumonia Vaccine Pt. tolerated well. [id number] 77208 Given 06/21/2017 Influenza Virus Vaccine, Quadrivalent, Split, Preservative Free 37714 Given 05/25/2016 Fluzone High Dose 03582 Given 01/20/2016 Tdap - 73d7r Tetanus/Diptheria/Acellular Pertussis 32087 Given 07/01/2015 Fluzone High Dose 29675 Given 09/14/2014 Zoster (Zostavax) 06879 Given 09/10/2014 Pneumococcal Conjugate Vaccine [id number] 13 Valent For Intramuscular Use 65670 Given 07/17/2014 Flu Vaccine Split Virus Preservative Free For Indiv 3Yr Older 21344 Given 08/23/2013 Flu Vaccine Split Virus [id number] Preservative Free For Indiv 3Yr Older Q2037 Given 07/11/2012 Fluvirin Im 3Yrs And Older [id number] 75158 Given 05/28/2011 Influenza Virus 3Yrs & Over [id number] 58333 Given 10/15/2010 Influenza Virus 3Yrs & Over [id number] 73998 Given 03/06/2009 Pneumonia Vaccine [id number] 99703 Given 07/25/2008 Influenza Virus 3Yrs & Over 47745 Given 06/22/2007 Influenza Virus 3Yrs & Over 03748 Given 09/15/2005 Td (History By Patient) Vital [...] Color YELLOW Yellow Appearance-Urine TURBID Clear Specific Kiln-Ur 1.018 1.010-1.030 Esterase-Urine NEGATIVE Negative Nitrite NEGATIVE Negative [id number]-Zr-MWR NEGATIVE Negative Protein-Urine NEGATIVE Negative PH-Urine 5.5 [...] in selective patients <6.0%. Please refer to [place] [employer] diabetic care guidelines for further [...] and in selective patients <6.0%.Please refer to [place] [employer] Diabetic care guidelines for further [...] and in selective patients <6.0%.Please refer to [place] [employer] Diabetic care guidelines for further [...] and in selective patients <6.0%.Please refer to [place] [employer] Diabetic care guidelines for further information. 22 Therapeutic target for the treatment of diabetes Mellitus patients is <7% HBA1C, and in selective patients <6.0%.Please refer to [place] [employer] Diabetic care guidelines for further [...] and in selective patients <6.0%.Please refer to [place] [employer] Diabetic care guidelines for further [...] and in selective patients <6.0%.Please refer to [place] [employer] Diabetic care guidelines for further information. 39 RUN DATE: 05/26/13 [facility] LAB LIVE PAGE 1 RUN TIME: [address] [place] [address] Specimen Inquiry Name: GAVINO HANDLEY : [address]: Josh Méndez MD Acct: [id number] Unit: [id number] AGE: 62 Location: ENDO Re05/23/13 SEX: M Status: REG REF SPEC: [id number] NATALIE: 05/23/13- SUBM DR: Josh Méndez MD REQ: [id number] RECD: 05/23/131404 STATUS: SAMANTHA GHOSH DR: Rell [...] performed at Main Lab DEPARTMENT OF PATHOLOGY, [facility] [employer] [place], [place] [address] Leonidas Bahena M.D. Director [facility] Permit #[id number] RUN DATE: 05/23/13 [facility] LAB LIVE PAGE 1 RUN TIME: 9659 [facility] [email or web address] [place], [place] [address] Specimen Inquiry Name: GAVINO HANDLEY : [address]: Josh Méndez MD Acct: [id number] Unit: [id number] AGE: 62 Location: ENDO Re05/23/13 SEX: M Status: REG REF SPEC: [id number] NATALIE: 05/23/13 DR: Josh Méndez MD REQ: [id number] RECD: 05/23/13 STATUS: COMP DAVINA DR: Rell Saldana III, MD _ SOURCE: STOOL SPDESC: ORDERED: Hemoccult Procedure Result Verified Site Stool Specimen Description Final 05/23/13- 1449 ML Test not performed Stool Occult Blood Final 05/23/13- 1449 ML Stool Occult Blood Negative END OF REPORT * ML=Testing performed at Main Lab DEPARTMENT OF PATHOLOGY, [address] [place] [address] Leonidas Bahena M.D. Director [facility] Permit #[id number] RUN DATE: 01/05/13 [facility] LAB LIVE PAGE 1 RUN TIME: [address] [place] [address] Specimen Inquiry Name: AGVINO HANDLEY : [address]: Josh Méndez MD Acct: [id number] Unit: [id number] AGE: 62 Location: ENDO Re01/03/13 SEX: M Status: REG REF SPEC: [id number] NATALIE: 01/03/13- SUBM DR: Josh Méndez MD REQ: [id number] RECD: 01/03/131455 STATUS: SAMANTHA GHOSH DR: Rell [...] performed at Main Lab DEPARTMENT OF PATHOLOGY, [facility] [employer] [place], [place] [address] Leonidas Bahena M.D. Director [facility] Permit #[id number] RUN DATE: 01/05/13 [facility] LAB LIVE PAGE 2 RUN TIME: 144 [facility] [email or web address] [place], [place] [address] Specimen Inquiry Patient: GAVINO HANDLEY [id number] (Continued) GROSS DESCRIPTION (Continued) GROSS DESCRIPTION (Continued) [...] performed at Main Lab DEPARTMENT OF PATHOLOGY, [address] [place] [address] Leonidas Bahena M.D. Director [facility] Permit #[id number] 42 Because ethnic data is not always [...] and in selective patients <6.0%.Please refer to [place] [employer] Diabetic care guidelines for further information. 49 Anion gap measurement may be of limited value in the presence of any alkalosis, especially in a combined acid base disorder. . 50 A metabolite of Naproxen, O-desmethylnaproxen, has been shown to interfere with the Jendrassik-Wapato method for measuring total bilirubin. Samples from [...] IN SELECTIVE PATIENTS <6.0%. PLEASE REFER TO [place] [employer] DIABETIC CARE GUIDELINES FOR FURTHER INFORMATION. 56 Anion gap measurement may be of limited value in the presence of any alkalosis, especially in a combined acid base disorder. . 57 A metabolite of Naproxen, O-desmethylnaproxen, has been shown to interfere with the Jendrassik-Wapato method for measuring total bilirubin. Samples from [...] IN SELECTIVE PATIENTS <6.0%. PLEASE REFER TO [place] DIABETIC CARE GUIDELINES FOR FURTHER INFORMATION. 63 * SERUM LEVELS OF PSA MEASURED USING THE [employer] ACCESS HYBRITECH IMMUNOASSAY SHOULD NOT BE INTERPRETED [...] change was based on recommendations from the [place] [employer]. 67 Please note change in [...] IN SELECTIVE PATIENTS <6.0%. PLEASE REFER TO [place] DIABETIC CARE GUIDELINES FOR FURTHER INFORMATION. 70 Anion gap measurement may be of limited value in the presence of any alkalosis, especially in a combined acid base disorder. . 71 Note change in reference range as of 04/26/08. The change was based on recommendations from the [place] [employer]. 72 Please note change in reference range effective 08 . 73 A metabolite of Naproxen, O-desmethylnaproxen, has been shown to interfere with the Jendrassik-Wapato method for measuring total bilirubin. Samples from [...] 0.06 ng/mL NOT SUPPORTIVE OF DIAGNOSIS OF [place] 0.06 - 0.50 ng/ml INDETERMINATE: SUGGEST SERIAL STUDIES IF CLINICALLY INDICATED. Greater than 0.5 ng/mL CONSISTENT WITH DIAGNOSIS OF [place] . 76 PLEASE NOTE NEW REFERENCE RANGES. 77 Anion gap measurement may be of limited value in the presence of any alkalosis, especially in a combined acid base disorder. . 78 Note change in reference range as of 04/26/08. The change was based on recommendations from the [place] [employer]. 79 Please note change in reference range effective 08 . 80 A metabolite of Naproxen, O-desmethylnaproxen, has been shown to interfere with the Jendrassik-Rashaad method for measuring total bilirubin. Samples from patients who have taken Naproxen have shown spurious elevation in total bilirubin levels. 81 * SERUM LEVELS OF PSA MEASURED USING THE [employer] ACCESS HYBRITECH IMMUNOASSAY SHOULD NOT BE INTERPRETED ABSOLUTE EVIDENCE OF THE PRESENCE OR ABSENCE OF DISEASE. THE PSA VALUE SHOULD BE USED IN CONJUNCTION WITH OTHER PERTINENT CLINICAL DIAGNOSTIC PROCEDURES. 82 THERAPEUTIC TARGET FOR THE TREATMENT OF DIABETES MELLITUS PATIENTS IS <7% HBA1C, AND IN SELECTIVE PATIENTS <6.0%. PLEASE REFER TO [place] DIABETIC CARE GUIDELINES FOR FURTHER [...] IN SELECTIVE PATIENTS <6.0%. PLEASE REFER TO [place] DIABETIC CARE GUIDELINES FOR FURTHER [...] SERUM LEVELS OF PSA MEASURED USING THE [employer] ACCESS HYBRITECH IMMUNOASSAY SHOULD NOT BE INTERPRETED ABSOLUTE EVIDENCE OF THE PRESENCE OR ABSENCE OF DISEASE. THE PSA VALUE SHOULD BE USED IN CONJUNCTION WITH OTHER PERTINENT CLINICAL DIAGNOSTIC PROCEDURES. 91 THERAPEUTIC TARGET FOR THE TREATMENT OF DIABETES MELLITUS PATIENTS IS <7% HBA1C, AND IN SELECTIVE PATIENTS <6.0%. PLEASE REFER TO [place] DIABETIC CARE GUIDELINES FOR FURTHER [...] IN SELECTIVE PATIENTS <6.0%. PLEASE REFER TO [place] DIABETIC CARE GUIDELINES FOR FURTHER [...] Procedures Date CPT Code Description Status 06/28/2018 45552 EKG Tracing & Interpretation Completed 04/18/2018 26927 Inject/Drain Joint/Bursa Major W/O US Completed 04/18/2018 80738 Inject/Drain Joint/Bursa Major W/O US Completed 03/29/2018 44273 EKG Tracing & Interpretation Completed 03/07/2018 70189 EKG Tracing & Interpretation Completed 03/01/2018 69564 Moderate Sedation Services; Same Phys Intl 15 Mins; PT Completed >=5 Years 03/01/2018 25089 Color Flow Doppler/Interp & Reprt Completed 03/01/2018 34965 Pulse Wave/Continuous-Interp.RPT Completed 03/01/2018 76720 Echocardiography, Transesophageal, Real Time W/Image 2D Completed W/W/O M-M 03/01/2018 09908 EKG, Interpretation Only Completed 03/01/2018 66774 Cardioversion Completed 02/22/2018 85858 EKG Tracing & Interpretation Completed 02/18/2018 90802 Holter Monitor Review (24 hr)dr review & interp only Completed 02/14/2018 88594 ECG Monitor/Recording W/Visual Superimposition Scanning Completed 02/01/2018 00009 ECHO Transthorasic Realtime 2D W Doppler & Color Flow Completed Hosp 02/01/2018 60851 EKG, Interpretation Only Completed 09/13/201787313 Inject/Drain Joint/Bursa Major W/O US Completed 03/15/2017 Diabetic Retinal Eye Exam Completed 02/08/201753095 Inject/Drain Joint/Bursa Major W/O US Completed 12/02/2016 Inject/Drain Joint/Bursa Major W/O US Completed 07/29/2016 Inject/Drain Joint/Bursa Major W/O US Completed 02/24/2016 Diabetic Retinal Eye Exam Completed 01/13/201678767 Inject/Drain Joint/Bursa Major W/O US Completed 11/05/2014 Diabetic Retinal Eye Exam Completed 10/11/2014 94800 EKG Tracing & Interpretation Completed 10/06/2013 Diabetic Retinal Eye Exam Completed 01/03/2013 Colonoscopy Completed 10/25/2012 49864 Polysomnography Sleep Staging 4+ Parameters W/Cpap Completed 09/20/2012 03870 Polysomnography Sleep Staging 4+ Parameters Completed 10/11/2009 78309 Treadmill Interp/Report Only Completed 10/11/2009 22988 Stress Test Supervsn W/Out I/R Completed 08/21/2009 12827 Holter Monitor Interpretation Completed 03/15/2003 Colonoscopy Completed Encounters Type Date Location Provider CPT E/M Dx Office Visit 06/28/2018 [facility] Naren Macario, 10934 I48.92 1:30p [facility] 04/11/2018 [facility] Internal Medicine Rell Saldana, 39278 E11.9 10:00a Marcellus Huffman M.D. I48.92 I10 G47.33 K21.9 Z23 Office Visit 04/04/2018 10:45a [facility] M.D. 59264 M17.11 C.M.Leif M17.12 Office Visit 03/29/2018 1:00p [facility] Naren Macario, 29083 I48.92 [facility]10 Office Visit 02/22/2018 1:30p [facility] Naren Macario 75245 I48.92 [facility] 02/01/2018 10:21a [facility] Naren Macario, 83838 I48.92 Elizabeth Casiano Office Visit 08/11/2017 10:15a [facility] M.D. 68215 M17.11 C.M.AAllyn M17.12 M17.0 Office Visit 01/25/2017 10:45a [facility] M.D. 73765 M17.12 C.M.A. M17.11 Office Visit 10/23/2016 10:20a [facility] Internal Medicine Rell Saldana, 85059 E11.9 - [place] Office Visit 07/29/2016 10:45a [facility] M.D. 80105 M17.11 C.MAllynAAllyn M17.12 Office Visit 07/27/2016 10:20a [facility] Internal Medicine Rell Saldana, 41739 I10 [place] Casiano E11.9 E78.2 G47.33 K21.9 Z00.01 Office Visit 01/20/2016 11:40a [facility] Internal Medicine Rell Saldana, 44018 I10 Teresa Casiano E11.9 E78.2 G47.33 Z23 Office Visit 01/13/2016 1:30p [facility] M.D. 72797 M17.0 C.M.A. Office Visit 02/04/2015 9:40a [facility] Internal Medicine Rell Saldana, 35007 250.00 [place] M.DAllyn 401.1 Office Visit 10/11/2014 10:00a [facility] Internal Medicine Rell Saldana, 23530 250.00 - [place] M.DAllyn 401.1 530.81 Office Visit 01/15/2014 9:40a [facility] Internal Medicine Rell Saldaan, 30179 250.00 - [place] M.DAllyn 401.1 272.2 530.81 327.23 Office Visit 10/12/2013 10:20a [facility] Internal Medicine Rell Saldana, 38945 250.00 - [place] M.DAllyn Office Visit 08/23/2013 10:40a [facility] Internal Medicine Rell Saldana, 23499 250.00 - [place] M.D. 401.1 327.23 530.81 272.2 715.90 280.9 V73.89 V08 V04.81 Office Visit 11/15/2012 9:40a [facility] Internal Medicine Rell DemetriusAllyn Saldana, 06800 280.9 - [place] M.D. 250.00 401.1 327.23 530.81 715.90 Office Visit 09/27/2012 9:29a Vinny Casillas, 93648 327.23 [facility] M.D. Office Visit 08/17/2012 11:20a [facility] Internal Medicine Rell DemetriusAllyn Saldana, 92413 250.00 - [place] M.D. 401.1 Office Visit 08/16/2012 11:12a Vinny Casillas, 64668 786.09 [facility] [place] M.DAllyn 794.2 Office Visit 07/11/2012 3:00p [facility] 10350 250.00 - [place] M.D. 401.1 272.2 530.81 V04.81 Office Visit 05/28/2011 4:00p DO Not Use Maintenance Operator [facility], 49971 250.00 [facility].DAllyn 401.1 272.2 530.81 V04.81 Office Visit 01/22/2011 1:20p DO Not Use Maintenance Operator [facility], 49502 401.1 [facility] M.D. 250.00 Office Visit 11/12/2010 10:40a DO Not Use Maintenance Operator [facility], 06335 401.1 [facility].D. 250.00 Office Visit 10/15/2010 1:00p DO Not Use Maintenance Operator [facility], 37706 V70.0 [facility].D. 250.00 401.1 272.2 715.90 V04.81 Office Visit 08/28/2009 2:30p DO Not Use Maintenance Operator [facility], 42069 786.59 [facility].D. Office Visit 03/06/2009 2:00p [facility], 95938 250.00 [facility] 401[facility]1 V03.82 Office Visit 03/22/2008 9:45a [facility], 41556 250.00 [facility] 272.0 401.1 Office Visit 09/22/2007 3:00p [facility], 94715 250.00 [facility] 272.0 401.1 Office Visit 06/22/2007 10:30a [facility], 83664 401.1 [facility] 250.00 V04.81 Office Visit 05/18/2007 9:45a [facility], 97034 250.00 [facility] 401[facility] Plan of Care Future Appointment(s):07/19/2018 11:00 am - Nurse Visit IC at [facility]07/18/2018 11:00 am - Nurse Visit IC at [facility]2017 1:20 pm - Rell Saldana M.D. at [facility] Internal Medicine - Kfnxwdhdr67/23 /2018 - Adi Macario M.D.I48.92 Unspecified atrial flutterNew Orders: Holter MonitorFollow up:4 months
[2018-07-21 18:35] LABS: INR 1.38 (0.77-1.02)
--- NOTE | 2018-07-21 19:14 | ED ---
Shortness of Breath - HPI Summary HPI Summary: Patient sent to [facility] [place] ED by PCP for low hemoglobin per routine blood work. Patient complains of exertional SOB, muscle weakness in bilateral thighs, productive cough 1 week. Denies fever, ear pain, BYRD, neck stiffness, sore throat, CP, N/V/D, abdominal pain, change in urine, change in BM. Medical history is DM, HTN, HDL, A. fib, anemia. Patient states baseline heart rate 100. Denies prior history of transfusion. Patient states chronic mild low in stool due to hemorrhoids. Denies increase in rectal bleeding, hematuria. Last colonoscopy 3 years ago, history of polyps. In process of scheduling another colonoscopy. Echocardiogram 03/01/18 ejection fraction 55-60%. Patient on Xarelto and chlorthalidone. - History of Current Complaint Chief Complaint: EDShortnessOfBreath Time Seen by Provider: 07/21/18 17:59 Hx Obtained From: Patient Onset/Duration: Gradual Onset Timing: Constant Current Severity: Moderate Dyspnea At: Exertion Aggrevating Factors: Movement Associated Signs & Symptoms: Cough (Productive) - Allergy/Home Medications Allergies/Adverse Reactions: Allergies Allergy/AdvReac Type Severity Reaction Status Date / Time iodine Allergy Mild See Comment Verified 07/21/18 17:58 contrast dye Allergy Mild See Comment Uncoded 03/01/18 09:09 Home Medications: Home Medications Dronedarone TAB* [Multaq TAB*] 400 mg PO BID 07/21/18 [History Confirmed ] Irbesartan [Avapro] 75 mg PO DAILY 07/21/18 [History Confirmed 07/21/18] PMH/Surg Hx/FS Hx/Imm Hx Endocrine/Hematology History: Reports: Hx Diabetes Cardiovascular History: Reports: Hx Hypercholesterolemia, Hx Hypertension Respiratory History: Reports: Other Respiratory Problems/Disorders - ex smoker GI History: Reports: Hx Gastroesophageal Reflux Disease Musculoskeletal History: Reports: Other Musculoskeletal History - knee pain - Surgical History Surgery Procedure, Year, and Place: 1961 tonsils. 1975 [facility] [place] - (right) knee torn cartiledge. 1992 [facility] [place] - (left) knee ACL. 1979 [place] - herniated disc. 1994 [facility] [place] - umbilical hernia. various dental surgeries Infectious Disease History: No Infectious Disease History: Denies: Traveled Outside the [place] in Last 30 Days - Social History Alcohol Use: None Substance Use Type: Reports: None Smoking Status (MU): Former Smoker Review of Systems Constitutional: Negative Eyes: Negative ENT: Negative Cardiovascular: Negative Positive: Shortness Of Breath, Cough Gastrointestinal: Negative Genitourinary: Negative Musculoskeletal: Negative Skin: Negative Neurological: Negative Psychological: Normal All Other Systems Reviewed And Are Negative: Yes Physical Exam Triage Information Reviewed: Yes Vital Signs On Initial Exam: Initial Vitals Temp Pulse Resp BP Pulse Ox 98.8 F 103 18 148/64 95 07/21/18 17:55 07/21/18 17:55 07/21/18 17:55 07/21/18 17:55 07/21/18 17:55 Vital Signs Reviewed: Yes Appearance: Positive: Well-Appearing Skin: Positive: Warm Head/Face: Positive: Normal Head/Face Inspection Eyes: Positive: Normal Neck: Positive: Supple Respiratory/Lung Sounds: Positive: Clear to Auscultation Cardiovascular: Positive: Normal Abdomen Description: Positive: Nontender Musculoskeletal: Positive: Normal Neurological: Positive: Normal Psychiatric: Positive: Normal AVPU Assessment: Alert - Fisher Coma Scale Best Eye Response: 4 - Spontaneous Best Motor Response: 6 - Obeys Commands Best Verbal Response: 5 - Oriented Coma Scale Total: 15 Diagnostics - Vital Signs Vital Signs Temp Pulse Resp BP Pulse Ox 07/21/18 17:55 98.8 F 103 18 148/64 95 - Laboratory Lab Results: Lab Results 07/21/18 07/21/18 07/21/18 Range/Units 18:09 18:09 18:09 INR (Anticoag Therapy) 1.38 H (0.77-1.02) Troponin I 0.01 (<0.04) ng/mL C-Reactive Protein 13.37 H (<8.01) mg/L B-Natriuretic Peptide 230 H (<=100) pg/mL Blood Type Antibody Screen Crossmatch 07/21/18 Range/Units 18:09 INR (Anticoag Therapy) (0.77-1.02) Troponin I (<0.04) ng/mL C-Reactive Protein (<8.01) mg/L B-Natriuretic Peptide (<=100) pg/mL Blood Type B Negative Antibody Screen Negative Crossmatch See Detail Lab Statement: Any lab studies that have been ordered have been reviewed, and results considered in the medical decision making process. Course/Dx - Course Course Of Treatment: Patient sent to [facility] [place] [place] ED by PCP for low hemoglobin per routine blood work. Patient complains of exertional SOB, muscle weakness in bilateral thighs, productive cough 1 week. Denies fever, ear pain, BYRD, neck stiffness, sore throat, CP, N/V/D, abdominal pain, change in urine, change in BM. Medical history is DM, HTN, HDL, A. fib, anemia. Patient states baseline heart rate 100. Denies prior history of transfusion. Patient states chronic mild low in stool due to hemorrhoids. Denies increase in rectal bleeding, hematuria. Last colonoscopy 3 years ago, history of polyps. In process of scheduling another colonoscopy. Echocardiogram 03/01/18 ejection fraction 55-60% . Patient on Xarelto and chlorthalidone. Physical exam unremarkable. Vital signs within normal limits. Chest x-ray same as prior on 06/04/2011 with no infiltrates appreciated that time. EKG sinus rhythm. BMP 230. Hemoglobin 6.1. Transfusion of 2 units RBC initiated. Admitted to the hospital. - Diagnoses Provider Diagnoses: Anemia, Cough Discharge - Sign-Out/Discharge Documenting (check all that apply): Patient Departure - Discharge Plan Condition: Stable Disposition: ADMITTED TO [facility] - Billing Disposition and Condition Condition: STABLE Disposition: Admitted to [facility]
[2018-07-21] MEDS ORDERED: Ondansetron INJ* 2 MG/ML VIAL IV PRN (20:52)
[2018-07-21] MEDS ORDERED: Acetaminophen TAB* 325 MG PO PRN (20:52)
[2018-07-21] MEDS ORDERED: Al Hydrox/Mg Hydrox/Simet LIQ* 30 ML UDC PO PRN (20:52)
[2018-07-21] MEDS ORDERED: Senna TAB PO PRN (20:52)
[2018-07-21] MEDS ORDERED: Docusate CAP* 100 MG PO PRN (20:52)
[2018-07-21] MEDS ORDERED: Pantoprazole* 80 mg IN NS 80 MG/250 ML BAG IVPB ONE (21:01)
[2018-07-21] MEDS ORDERED: Cyanocobalamin INJ * 1,000 MCG/ML VIAL 1 ML VIAL IM ONE (21:18)
[2018-07-21] MEDS: Metoprolol Tartrate TAB* 50 mg PO SCH (22:24)
[2018-07-21] MEDS: Dronedarone TAB* 400 MG PO SCH (22:24)
[2018-07-21] MEDS: Insulin GLARGINE(*) 1 UNITS UNIT SUBCUT SCH (22:24)
[2018-07-21] MEDS: Pantoprazole* 80 mg IN NS 80 MG/250 ML BAG IVPB SCH (23:16)
[2018-07-22 01:20] LABS: Urine Appearance Clear; Urine Blood Negative (Negative); Urine Color Yellow; Urine Ketones Negative (Negative); Urine Protein Negative (Negative); Urine Urobilinogen Negative (Negative)
--- NOTE | 2018-07-22 03:53 | HP ---
CC: Rell Saldana MD; Sahil Cuevas MD; Adi Macario MD * DATE OF ADMISSION: 07/21/18 TIME OF EVALUATION: 2100. CHIEF COMPLAINT: Shortness of breath. HISTORY OF PRESENT ILLNESS: This is a 67-year-old male with a past medical history of paroxysmal atrial fibrillation, on anticoagulation, presented to the emergency room after he had labs drawn in his primary care physician's office today, found to have a drop in his hemoglobin and hematocrit. The patient states he has had worsening shortness of breath and dyspnea on exertion for the past week, very fatigued with limited mobility. He had seen Dr. Macario earlier this week and contacted his PCP's office and he went in for a blood work and his hemoglobin and hematocrit were 6.1/21. He was told to go to the emergency room for further evaluation. He states he gets occasional bloody stools. No black stools. No change in his stools. No nausea, vomiting, or diarrhea. No constipation. He states back in the summer of 2017, he was supposed to have an endoscopy and colonoscopy for gastric polyp and rectal bleeding, but then he went into rapid AFib which was a new diagnosis for him and they had to manage that and get that under better control before he gets his procedure. He has been started on Multaq and metoprolol and has gained 10 pounds which he feels was fluid weight from that. He denies any chest pain. No fevers. He has had a productive cough. No urinary symptoms. Otherwise, remaining review of systems is negative. In the emergency room, the patient had labs. He had 2 units of blood ordered. He is referred to the hospitalist service for further evaluation. PAST MEDICAL HISTORY: 1. Obstructive sleep apnea, on CPAP. 2. Paroxysmal atrial fibrillation, on anticoagulation, followed by Dr. Macario. 3. Diabetes. 4. History of gastric polyps and rectal bleeding. 5. GERD. 6. Hyperlipidemia. 7. Hypertension. MEDICATIONS: The patient does not have a list. Med records not done. He states he takes: 1. Lantus 50 units b.i.d. 2. Trulicity once a week. 3. Metformin. 4. Glimepiride. 5. Xarelto. 6. Multaq. 7. Metoprolol. ALLERGIES: CONTRAST DYE. FAMILY HISTORY: Mother from old age; father from suicide. SOCIAL HISTORY: The patient lives alone. He is independent of ADLs. He works at the [employer]. His healthcare proxy is his sister, Tia. He quit smoking 19 years ago. At that time, he smoked 2 packs per day for 30 years. No alcohol use or illicit drug use. CODE STATUS: Full code. REVIEW OF SYSTEMS: A 14-point review of systems as mentioned in the HPI; otherwise negative. PHYSICAL EXAMINATION GENERAL: No acute distress, pale. VITAL SIGNS: Temp 98.8, pulse rate 96, respiratory rate 18, oxygen saturation 95% on room air, and blood pressure 126/56. HEENT: Head normocephalic. Pupils are equal and reactive. Anicteric. Conjunctivae pale. Oropharynx: Mucous membranes moist. NECK: Supple. No lymphadenopathy. RESPIRATORY: Diminished breath sounds. Bilateral rales. No increased work of breathing. CARDIAC: Regular rate and rhythm. Systolic murmur most prominent at the left sternal base. ABDOMEN: Morbidly obese. Soft and nontender. EXTREMITIES: Trace pretibial edema. +1 DPs. NEUROLOGIC: Alert and oriented x3. No gross focal neurological deficits. DIAGNOSTIC STUDIES AND LABORATORY DATE: White count is 6.1, hemoglobin 6.1, hematocrit 21, platelets 202. INR is 1.38. Sodium 141, potassium 5, chloride 110, bicarb 23. BUN 21, creatinine 1.14. Hemoglobin A1c is 6.2. Mag is 1.9. Trop is 0.01. BNP is 230. B12 is 178. RADIOGRAPHIC DATA: Chest x-ray is consistent with pulmonary edema. EKG is sinus rhythm. ASSESSMENT AND PLAN: This is a 67-year-old male with past medical history of paroxysmal atrial fibrillation, on anticoagulation, presents to the emergency room with dyspnea on exertion, was sent in from his PCP for a low H and H. 1. Dyspnea on exertion. Assessment: The patient's most likely culprit is his GI bleed. He does have Hemoccult that was positive in the emergency room. His rectal exam showed no evidence of hemorrhoids per the PA. The other contributing factor is his x-ray , looks like he has some findings of congestive heart failure. I spoke with Dr. Cuevas. He is agreeable to see him in the morning for possible endoscopy and colonoscopy at some point. Plan: We will admit him to [facility] with his congestive heart failure. We will give him 2 units and give Lasix in between and after a second dose. We will start him on a PPI as well and keep him on a clear liquid diet and hold his Xarelto. 2. Congestive heart failure. Assessment: The patient had an echocardiogram done back in February that was relatively unremarkable. He states the fluid started after he was started on cardiac meds. Not unreasonable to repeat his echo. Continue his Multaq and metoprolol, hold the Xarelto. Obtain his med rec and touch base with Cardiology regarding his admission. CHRONIC MEDICAL PROBLEMS: 1. Diabetes. We will continue him on his Lantus, hold his oral agents. 2. Paroxysmal atrial fibrillation. As mentioned, he is in sinus. We will continue his Multaq and metoprolol. Hold the Xarelto. 3. Hyperlipidemia. Continue his atorvastatin. 4. FEN. We will allow for clear liquid diet. 5. DVT prophylaxis. The patient scores moderate risk. We will place him on SCDs in the setting of a GI bleed. 6. Code status: Full code. PATIENT TIME: Greater than 60 minutes were spent doing the history and physical , more than half the time was spent in direct patient contact. [id number]/[facility] #: [id number] ABDIRIZAK
[2018-07-22] MEDS ORDERED: Furosemide IV* 10 MG/ML 2 ML VIAL (20 MG) IV ONE ×2 (04:00)
[2018-07-22 06:17] LABS: ABS Basophils 0 10^3/ul (0-0.2); ABS Eosinophils 0.2 10^3/ul (0-0.6); ABS Lymphocytes 1.3 10^3/ul (1.0-4.8); ABS Monocytes 0.5 10^3/ul (0-0.8); ABS Neutrophils 4.8 10^3/ul (1.5-7.7); ABS Nucleated RBC 0 10^3/ul; Eosinophil % 2.9 % (0-6); Hematocrit 23 % (42-52); Lymphocyte % 18.6 % (25-47); Mean Corpuscular HGB Conc 31 g/dl (31-36); Mean Corpuscular Hemoglobin 22 pg (27-31); Mean Corpuscular Volume 71 fL (80-94); Mean Platelet Volume 8.2 fL (7.4-10.4); Nucleated Red Blood Cells % 0.1; Platelet Count 200 10^3/ul (150-450); Red Blood Count 3.15 10^6/ul (4.00-5.40); Red Cell Distribution Width 20 % (10.5-15); White Blood Count 6.8 10^3/ul (3.5-10.8)
[2018-07-22] MEDS: Insulin GLARGINE(*) 1 UNITS UNIT SUBCUT SCH ×2 (09:26→21:32)
[2018-07-22] MEDS: Metoprolol Tartrate TAB* 50 mg PO SCH ×2 (09:29→21:28)
[2018-07-22] MEDS: Dronedarone TAB* 400 MG PO SCH ×2 (09:30→21:28)
[2018-07-22 10:05] LABS: Hematocrit 25 % (42-52); Hemoglobin 7.4 g/dl (14.0-18.0)
[2018-07-22] MEDS: Pantoprazole* 80 mg IN NS 80 MG/250 ML BAG IVPB SCH ×2 (10:17→21:29)
[2018-07-22] MEDS ORDERED: Perflutren Lipid Microsphere* 3 ML VIAL ONE (11:48)
--- NOTE | 2018-07-22 12:22 | PN ---
Subjective Date of Service: 07/22/18 Interval History: Mr. Handley feels well this morning and has no complaints other than being hungry. He has not had any further GI bleeding since being in the hospital. He is anxious to know the plan for possible endoscopy. He denies CP, SOB, N/V/D, dizziness. Family History: Unchanged from Admission Social History: Unchanged from Admission Past Medical History: Unchanged from Admission Objective Active Medications: Acetaminophen (Tylenol Tab*) 650 mg PO Q4H PRN Al Hydrox/Mg Hydrox/Simethicone (Maalox Plus*) 30 ml PO Q6H PRN Atorvastatin Calcium (Lipitor*) 10 mg PO 1700 OLIVA Docusate Sodium (Colace Cap*) 100 mg PO BID PRN Dronedarone (Multaq Tab*) 400 mg PO BID OLIVA Pantoprazole Sodium (Protonix Iv Bag*) 80 mg in 250 mls @ 25 mls/hr IVPB Q10H OLIVA Insulin Glargine (Lantus(*)) 25 units SUBCUT Q12H OLIVA Metoprolol Tartrate (Lopressor Tab*) 50 mg PO Q12HR OLIVA Ondansetron HCl (Zofran Inj*) 4 mg IV Q4H PRN Senna (Senokot Tab*) 1 tab PO BID PRN Vital Signs - 8 hr 07/22/18 07/22/18 07:29 08:00 Temperature 99.4 F Pulse Rate 96 Respiratory 18 18 Rate Blood Pressure 122/53 (mmHg) O2 Sat by Pulse 96 Oximetry Oxygen Devices in Use Now: None Appearance: Middle-aged male laying in bed in NAD Eyes: No Scleral Icterus Ears/Nose/Mouth/Throat: Mucous Membranes Moist Neck: NL Appearance and Movements; NL JVP Respiratory: Symmetrical Chest Expansion and Respiratory Effort, Clear to Auscultation Cardiovascular: NL Sounds; No Murmurs; No JVD, RRR Abdominal: NL Sounds; No Tenderness; No Distention Extremities: No Edema Neurological: Alert and Oriented x 3 Lines/Tubes/Other Access: Clean, Dry and Intact Peripheral IV Nutrition: Taking PO's Result Diagrams: 07/22/18 09:57 07/22/18 05:50 Assess/Plan/Problems-Billing Assessment: Mr. Handley is a 67yo with PMH of afib on Xarelto, CARON, DM2, GI bleed, GERD, HLD, and HTN who reportedly experiences occasionally bloody stools who presented to the ED with c/o SOB and was found to be anemic secondary to GI bleed. - Patient Problems (1) GI bleed Current Visit: Yes Status: Acute Code(s): K92.2 - GASTROINTESTINAL HEMORRHAGE, UNSPECIFIED SNOMED Code(s): 63416946 Comment: - NSAID use likely a contributing factor - Initial H&H 6.1; after 2 units inreased to 7.4; will continue to trend - Appreciate GI consult; plan for endoscopy later today - CHADS2-VASC score is 3 indicating a 3.2% risk of stroke per year and HAS-BLED score is 3 indicating a 5.8% risk of bleed; at this point the risk of bleed is greater than the risk of stroke and we will continue to hold xarelto - Continue protonix IV BID (2) Shortness of breath Current Visit: Yes Status: Acute Code(s): R06.02 - SHORTNESS OF BREATH SNOMED Code(s): 111524176 Comment: - Concern on admission for CHF, though echo is unchanged and there are no physical findings concerning for CHF; suspect lasix on admission resolved symptoms (3) Atrial flutter, paroxysmal Current Visit: Yes Status: Acute Code(s): I48.92 - UNSPECIFIED ATRIAL FLUTTER SNOMED Code(s): 173233907 Comment: - NSR on tele; recent Holter monitor showed no evidence of afib/flutter - Echo shows EF 50-55%, normal LVF, and PFO; no changes since prior exam in February - Hold xarelto - Continue multaq, metoprolol (4) Diabetes mellitus, type 2 Current Visit: Yes Status: Acute Comment: - Hold metformin, trulicity, glimepiride - Continue glargine, but will hold morning dose as he is NPO (5) Hypertension Current Visit: Yes Status: Acute Code(s): I10 - ESSENTIAL (PRIMARY) HYPERTENSION SNOMED Code(s): 18597393 Comment: - Normotensive - Hold irbesartan, chlorthalidone - Continue metoprolol (6) Hyperlipidemia Current Visit: Yes Status: Acute Code(s): E78.5 - HYPERLIPIDEMIA, UNSPECIFIED SNOMED Code(s): 73642683 Comment: - Continue atorvastatin (7) GERD (gastroesophageal reflux disease) Current Visit: Yes Status: Acute Code(s): K21.9 - GASTRO-ESOPHAGEAL REFLUX DISEASE WITHOUT ESOPHAGITIS SNOMED Code(s): 898515762 Comment: - Home PPI on hold - Continue protonix IV (8) CARON (obstructive sleep apnea) Current Visit: Yes Status: Acute Code(s): G47.33 - OBSTRUCTIVE SLEEP APNEA ( ADULT) (PEDIATRIC) SNOMED Code(s): 97727447 Comment: - CPAP (9) DVT prophylaxis Current Visit: Yes Status: Acute Code(s): SUD4244 - SNOMED Code(s): 585227243 Comment: - SCDs (10) Full code status Current Visit: Yes Status: Acute Code(s): Z78.9 - OTHER SPECIFIED HEALTH STATUS SNOMED Code(s): 895688302 Status and Disposition: Inpatient. Anticipate d/c home when medically stable. Attending: Nilda Mcmahan
--- NOTE | 2018-07-22 14:13 | CONS ---
GASTROENTEROLOGY CONSULT NOTE: DATE OF CONSULT: 07/22/18 REQUESTING PROVIDER: Bambi Soares MD. REASON FOR CONSULT: Anemia. HISTORY OF PRESENT ILLNESS: Mr. Handley is a 67-year-old gentleman with a history of paroxysmal AFib, on Xarelto; CARON, on CPAP; obesity; diabetes; GERD; history of gastric polyp; and hypertension, who is admitted with symptomatic anemia. Mr. Handley has previously been followed by Dr. Méndez in GI for history of iron- deficiency anemia. He has a history of colon polyps and hyperplastic gastric polyp. Last endoscopies were in 2012. He had a capsule study around that time as well that showed some erythema in his small bowel possibly related to chronic NSAID use. He was scheduled to have a repeat EGD and colonoscopy to follow up in January 2018. Unfortunately, he developed AFib with RVR and had to cancel that procedure. Regarding current admission, Mr Handley has noticed for the past 10 to 14 days that he has had more fatigue and dyspnea on exertion. He underwent blood work as an outpatient, which demonstrated a hematocrit of 21. This was down from 38 in January 2018. He was instructed to present to the ER. Since arrival to [facility] [place], he has remained hemodynamically stable. He has received 2 units of blood with most recent hematocrit being up to 25. He has not noticed any overt bleeding other than intermittent small volume bright red blood per rectum. This is chronic for him and unchanged in frequency/amount. He has not seen any melena or dark stools. He noticed that he is having a little lower abdominal pressure and tightness in the last few days, although he denies any abdominal pain. His bowel movements usually range from 1 to 2 times a day to sometimes up to 4 to 5 stools per day. He occasionally will have loose stools. This is chronic and not changed recently. He is on Prilosec once a day without any breakthrough reflux symptoms. He is on ibuprofen at least 400 mg 3 times a day, and he notes that he was on more in the past. He denies any other GI symptoms including nausea, vomiting, refractory heartburn, severe abdominal pain or dysphagia. Weight is up since starting some new heart medications in the last few months. Last use of Xarelto was Wednesday evening. PAST MEDICAL HISTORY: 1. Obstructive sleep apnea, on CPAP 2. Morbid obesity 3. Paroxysmal AFib, on anticoagulation 4. Diabetes 5. History of gastric polyps, hyperplastic. Status-post polypectomy, 2018. 6. GERD 7. HTN 8. Chronic NSAID use PAST SURGICAL HISTORY: No abdominal surgeries. MEDICATIONS: 1. Lantus. 2. Trulicity. 3. Metformin. 4. Glimepiride. 5. Xarelto 6. Multaq. 7. Metoprolol. 8. Prilosec 40 mg once a day. 9. Uses ibuprofen as well at least 3 times a day for pain. ALLERGIES: CONTRAST DYE. FAMILY HISTORY: No GI or liver disease known in family. SOCIAL HISTORY: The patient [place]. Independent of ADLs. Works at [employer] in the summer. He is not working in the winter. Smoked 2 packs per day for 30 years, but quit 19 years ago. No alcohol or drug use. REVIEW OF SYSTEMS: 12-point review of systems was negative except as mentioned in HPI. PHYSICAL EXAM: Vital Signs: Temp 99.4, heart rate 96, blood pressure 122/53, 96% on room air. General: Obese gentleman. Appears to be a bit short of breath with moving around in the room. No acute distress. HEENT: Mucous membranes moist. Neck: Thick neck. Supple. No lymphadenopathy. Pulm: Moving good air. Does not appear to be in respiratory distress. Lungs are clear, although breath sounds are slightly diminished. Cardiovascular: Regular rate and rhythm. Systolic murmur. Abdomen: Morbid obesity. Soft, nontender, and nondistended. Rectal exam: No significant hemorrhoids. Yellow brown stool. No melena or blood. Extremities: Trace edema. Neuro: A and O x3. No gross focal neurologic defects. DIAGNOSTIC STUDIES/LAB DATA: Labs reviewed. The patient with hemoglobin of 7.4 and hematocrit of 25 with an MCV of 71. INR 1.38. BUN 21 with a creatinine of 1.17. BNP was elevated at 230 as is CRP at 13.37. Urine studies unremarkable. Chest x-ray was done this admission and this notes findings with differential including mild pulmonary edema, pneumonitis, or multifocal pneumonia. IMPRESSION AND RECOMMENDATIONS: Mr. Handley is a 67-year-old gentleman with history of morbid obesity; paroxysmal atrial fibrillation, on Xarelto; iron- deficiency anemia; chronic NSAID use; diabetes; history of hyperplastic gastric polyp and benign colon polyps, who is admitted with symptomatic anemia noted on outpatient labs. Mr. Handley has a history of iron-deficiency anemia. He has undergone EGD, colon and capsule, most recently in 2012. He had a hyperplastic polyp removed at that time from his stomach. He has had benign colon polyps removed, although these were not felt to be the source of iron deficiency. Capsule endoscopy revealed some small bowel erythema possibly related to NSAIDs. Most recent Hct was 38 in 01/2018. Recommendation was to have a repeat EGD and colon done in January , although the patient went into atrial fibrillation with rapid ventricular response and was not able to have this procedure performed. He now presents with a quite low hematocrit of 21 with appropriate response to 2 units of blood. No overt bleeding noted. Presentation suspicious for subacute or acute chronic GI bleeding in setting of anticoagulation. No clear source of ERICH identified during prior work-up in 2012. I am suspicious that NSAIDs might be contributing as he is on ibuprofen every day. 1. Continue to monitor CBC. Transfuse per primary team. 2. Xarelto on hold 3. Minimize or avoid NSAIDs. 4. Continue PPI daily. 5. NPO. Will plan for EGD today with anesthesia to evaluate for bleeding source. Thank you for this consult. [id number]/[facility] #: [id number]
--- NOTE | 2018-07-22 14:17 | ECHO ---
Patient: GAVINO SMITH Rec#: [id number] : 1950 Date: 07/22/2018 Age: 67y Height: 173 cm / 68.1 in Weight: 127 kg / 279.9 lbs Sex: M BSA: 2.36 Room#: [facility] Admit Date#: 07/21/2018 Type: Inpatient Referring: Bambi Soares Reading: Fabio Powell DO Filling Winder: Beryl Montanez RN RDCS CC: Rell Saldana MD Transthoracic Echocardiogram Indication: Shortness of breath, CHF BP: 139/63 HR: 78 Rhythm: NSR with PVCs Findings History: HTN, HLD, DM, paroxysmal A. fib/flutter, CARON on CPAP, obesity. Technical Comments: The study quality is fair. The study is technically limited due to patient body habitus. Left Ventricle: The left ventricular chamber size is normal. Mild concentric left ventricular hypertrophy is observed. Global left ventricular wall motion and contractility are within normal limits. Left ventricular systolic function is at the lower limits of normal. The estimated ejection fraction is 50-55%. The assessment of diastolic function is non-diagnostic. Left Atrium: The left atrium is mildly dilated. Right Ventricle: The right ventricular chamber size and systolic function are within normal limits. Right Atrium: The right atrium is mildly dilated. Aortic Valve: The aortic valve is trileaflet. The aortic valve leaflets are mildly thickened. There is a trace of aortic regurgitation. There is no evidence of aortic stenosis. Mitral Valve: The mitral valve leaflets are mildly thickened. There is a trace of mitral regurgitation. There is no evidence of mitral stenosis. Tricuspid Valve: The tricuspid valve structure is not well visualized. There is trace to mild tricuspid regurgitation. Unable to estimate the right ventricular systolic pressure. There is no tricuspid stenosis. Pulmonic Valve: The pulmonic valve structure is not well visualized. There is no evidence of pulmonic regurgitation. There is no pulmonic stenosis. Pericardium: There is no significant pericardial effusion. Aorta: There is no dilatation of the ascending aorta. The aortic arch is not well visualized. There is no dilation of the aortic root. Pulmonary Artery: The main pulmonary artery is not well visualized. Venous: The venous system is not well visualized. The inferior vena cava is not visualized. Contrast: Definity was used to optimize study. A total of 3 ml of diluted Definity was given IV. Conclusions The left ventricular chamber size is normal. Mild concentric left ventricular hypertrophy is observed. Left ventricular systolic function is at the lower limits of normal. The estimated ejection fraction is 50-55%. The left atrium is mildly dilated. The right ventricular chamber size and systolic function are within normal limits. No significant valvular abnormalites noted Unable to estimate the right ventricular systolic pressure. Definity was used to optimize study. Compared to prior study from 01/2018, no clinically significant changes noted. Measurements Name Value Normal Range RVDdMajor (2D) 3.9 cm (2.2 - 4.4) RAd ISD 4CH 5.9 cm (3.4 - 4.9) RA (A4C)W 3.5 cm (2.9 - 4.6) IVSd (2D) 1.4 cm (0.6 - 1) LVPWd (2D) 1.2 cm (0.6 - 1) LVIDd (2D) 4.9 cm (3.6 - 5.4) LVIDs (2D) 3.5 cm - LV FS (2D) 29 % (25 - 45) Aortic Annulus 1.7 cm (1.4 - 2.6) Ao root diameter (2D) 3.1 cm (2.1 - 3.5) Ascending Ao 3.1 cm (2.1 - 3.4) LA dimension (AP) 2D 4.7 cm (2.3 - 3.8) LAd ISD 4CH 6.2 cm (2.9 - 5.3) LA ISD 4CH W 4.1 cm (2.5 - 4.5) Name Value Normal Range LA ESV BP (A/L) index 30 ml/m2 - Name Value Normal Range MV E-wave Vmax 1.2 m/sec - MV deceleration time 194 msec - MV A-wave Vmax 0.86 m/sec - MV E:A ratio 1.3 ratio - LV septal e' Vmax 0.08 m/sec - LV lateral e' Vmax 0.09 m/sec - LV E:e' septal ratio 15 ratio - LV E:e' lateral ratio 13.3 ratio - Name Value Normal Range AV Vmax 1.8 m/sec - AV VTI 36.9 cm - AV peak gradient 13 mmHg - AV mean gradient 7 mmHg - LVOT Vmax 1.5 m/sec - LVOT VTI 31.7 cm - LVOT peak gradient 9 mmHg - LVOT mean gradient 5 mmHg - Name Value Normal Range PV Vmax 0.97 m/sec -
[2018-07-22 17:59] LABS: Hematocrit 23 % (42-52); Hemoglobin 7.1 g/dl (14.0-18.0)
[2018-07-22] MEDS: Atorvastatin* 10 MG TAB PO SCH (18:05)
[2018-07-23 06:07] LABS: ABS Basophils 0 10^3/ul (0-0.2); ABS Eosinophils 0.2 10^3/ul (0-0.6); ABS Lymphocytes 1.1 10^3/ul (1.0-4.8); ABS Monocytes 0.5 10^3/ul (0-0.8); ABS Nucleated RBC 0 10^3/ul; Hematocrit 22 % (42-52); Hemoglobin 6.9 g/dl (14.0-18.0); Lymphocyte % 19.3 % (25-47); Mean Corpuscular HGB Conc 31 g/dl (31-36); Mean Corpuscular Hemoglobin 22 pg (27-31); Mean Corpuscular Volume 71 fL (80-94); Nucleated Red Blood Cells % 0.4; Platelet Count 188 10^3/ul (150-450); Red Blood Count 3.14 10^6/ul (4.00-5.40); Red Cell Distribution Width 20 % (10.5-15); White Blood Count 5.8 10^3/ul (3.5-10.8)
[2018-07-23 06:17] LABS: EGFR Non-African American 65.9 (>60)
[2018-07-23] MEDS: Insulin GLARGINE(*) 1 UNITS UNIT SUBCUT SCH ×2 (08:20→21:51)
[2018-07-23] MEDS: Pantoprazole* 80 mg IN NS 80 MG/250 ML BAG IVPB SCH ×2 (08:20→18:03)
[2018-07-23] MEDS: Dronedarone TAB* 400 MG PO SCH ×2 (08:20→21:51)
[2018-07-23] MEDS: Metoprolol Tartrate TAB* 50 mg PO SCH ×2 (08:20→21:51)
--- NOTE | 2018-07-23 11:05 | PN ---
Progress Note - Progress Note Date of Service: 07/23/18 Note: pt seen and examined; continues to ooze; feels "like a truck ran me over" sore all over, tired; getting 1 U PRBC EGD noted VS; 97.8, 127/42, 93, 94% nad, alert, +bs, morbid obese, soft, not tender hgb 6.9 from 7.1, bun 18, inr 1.34 Was set up for EGD/colon before afib occurred; off xarelto now; plan for repeat EGD and colonoscopy with Dr Méndez his outpt GI on Wednesday; will need anesthesia help Sahil Cuevas MD
--- NOTE | 2018-07-23 14:17 | PRO ---
CC: Rell Saldana MD; Josh Méndez MD * DATE OF PROCEDURE: 07/22/18 - ROOM #449 PROCEDURE: EGD. PRIMARY PROVIDER: Rell Saldana MD. MEDICATIONS GIVEN: By anesthesia. INDICATION: History of chronic iron-deficiency anemia, presents with likely acute on chronic iron-deficiency anemia. No overt bleeding. The patient last took his Xarelto around 36 hours ago. PROCEDURE IN DETAIL: Full disclosure of risks were reviewed with the patient as detailed on the consent form. The patient was placed in the left lateral decubitus position and monitored with continuous pulse oximetry, interval blood pressure monitoring, and direct observation. A bite block was placed between the teeth. An Olympus gastroscope as then inserted into the patient's mouth and advanced down the esophagus into the stomach and into the distal duodenum. Findings are described below. FINDINGS: Esophagus was a tubular structure without rings or strictures. There was an area of extrinsic compression noted in the mid esophagus. It appears that this was commented on in the 2013 upper endoscopy as well. This area of compression is with normal overlying mucosa. Does not appear to be causing clinically significant compression, although is a fairly large area of extrinsic type compression. The GE junction and Z-line were normal at 39 cm. The scope was advanced into the stomach. Stomach was examined in the forward and retroflex views. There was no fresh or old blood in the stomach. In the antrum along the greater curvature there was an approximately 1 cm polyp. There was mild erythema to the polyp and a white, likely exudate, cap. No high risk stigmata or evidence of recent bleeding. Scope was then advanced into the duodenum. Duodenum was examined to the fourth portion. There was emery bile without any red or old blood. There were no erosions or ulcers. Scope was then withdrawn from the patient. The patient tolerated the procedure well and was recovered in the GI recovery area. IMPRESSION: 1. Esophagus with extrinsic compression. It has been noted in the past. Could consider imaging with either CT chest or endoscopic ultrasound of this lesion for definitive diagnosis. It does not appear to be causing clinically significant esophageal symptoms per the patient. 2. Approximately a 1 cm gastric antral polyp with a white cap. Does not appear to have recently been bleeding, although I suspect it could possibly be a source of chronic blood loss in the setting of anticoagulation. On review of endoscopy pictures from 2013, this appears to be a recurrence of the polyp that was previously resected on two occasions. Path from that polyp was hyperplastic. Biopsies were not obtained at this time given the same location and appearance as prior endoscopies. Polyp not removed today as the patient has not been off of his anticoagulation for the appropriate amount of time. 3. Otherwise no abnormal findings on this study. FOLLOWUP: 1. The patient will need a repeat EGD for gastric polypectomy with an appropriate hold from his Xarelto. 2. The patient should have repeat colonoscopy performed. If the patient does not have any overt bleeding and has had increase in his hematocrit with transfusions, it think it is not unreasonable to consider doing the colonoscopy in an outpatient setting at the same time as the upper endoscopy. I would recommend doing these cases with anesthesia as the patient is quite morbidly obese with a history of sleep apnea requiring a CPAP. 3. Can advance diet for now and monitor blood counts. If blood counts begin to drop or overt bleeding is noted, then an inpatient colonoscopy should be performed. Thank you very much for this consult. [id number]/[facility] #: [id number] ABDIRIZAK
[2018-07-23 14:44] LABS: Hematocrit 25 % (42-52); Hemoglobin 7.8 g/dl (14.0-18.0)
[2018-07-23] MEDS: Atorvastatin* 10 MG TAB PO SCH ×2 (16:25→16:30)
--- NOTE | 2018-07-23 17:03 | PN ---
Subjective Date of Service: 07/23/18 Interval History: Hgb to 6.9, transfused 1 more pRBC feeling less tired. Denies SOB, chest pain, fever, chills, N/V, D/C. Has had chronic lower extremity edema. Does not know his dry weight. Plans of following up with Dr. Salinas to discuss possible bariatric surgery. Family History: Unchanged from Admission Social History: Unchanged from Admission Past Medical History: Unchanged from Admission Objective Active Medications: Acetaminophen (Tylenol Tab*) 650 mg PO Q4H PRN PRN Reason: FEVER/PAIN Al Hydrox/Mg Hydrox/Simethicone (Maalox Plus*) 30 ml PO Q6H PRN PRN Reason: INDIGESTION Atorvastatin Calcium (Lipitor*) 10 mg PO 1700 [facility] Last Admin: 07/23/18 16:30 Dose: 10 mg Docusate Sodium (Colace Cap*) 100 mg PO BID PRN PRN Reason: CONSTIPATION Dronedarone (Multaq Tab*) 400 mg PO BID [facility] Last Admin: 07/23/18 08:20 Dose: 400 mg Pantoprazole Sodium (Protonix Iv Bag*) 80 mg in 250 mls @ 25 mls/hr IVPB Q10H [facility] Last Admin: 07/23/18 08:20 Dose: 25 mls/hr Insulin Glargine (Lantus(*)) 25 units SUBCUT Q12H [facility] Last Admin: 07/23/18 08:20 Dose: 25 units Metoprolol Tartrate (Lopressor Tab*) 50 mg PO Q12HR [facility] Last Admin: 07/23/18 08:20 Dose: 50 mg Ondansetron HCl (Zofran Inj*) 4 mg IV Q4H PRN PRN Reason: NAUSEA/VOMITING Senna (Senokot Tab*) 1 tab PO BID PRN PRN Reason: CONSTIPATION Vital Signs - 8 hr 07/23/18 07/23/18 07/23/18 09:28 11:15 12:15 Temperature 98.8 F 98.7 F Pulse Rate 80 77 Respiratory 17 18 Rate Blood Pressure 131/62 118/60 (mmHg) O2 Sat by Pulse 98 Oximetry 07/23/18 15:20 Temperature 98.8 F Pulse Rate 89 Respiratory 16 Rate Blood Pressure 145/68 (mmHg) O2 Sat by Pulse 97 Oximetry Oxygen Devices in Use Now: None Appearance: NAD Eyes: No Scleral Icterus, PERRLA Ears/Nose/Mouth/Throat: NL Teeth, Lips, Gums Neck: NL Appearance and Movements; NL JVP Respiratory: Symmetrical Chest Expansion and Respiratory Effort, Clear to Auscultation Cardiovascular: NL Sounds; No Murmurs; No JVD, - - irregularly irregular Abdominal: - - distended, obese, soft Extremities: - - 1+ edema Skin: No Rash or Ulcers Neurological: Alert and Oriented x 3, NL Sensation Nutrition: Taking PO's Result Diagrams: 07/23/18 14:25 07/23/18 05:37 Additional Lab and Data: Lab Results 07/21/18 07/21/18 07/21/18 Range/Units 18:09 18:09 18:09 INR (Anticoag Therapy) 1.38 H (0.77-1.02) Troponin I 0.01 (<0.04) ng/mL C-Reactive Protein 13.37 H (<8.01) mg/L B-Natriuretic Peptide 230 H (<=100) pg/mL Blood Type Antibody Screen Crossmatch 07/21/18 Range/Units 18:09 INR (Anticoag Therapy) (0.77-1.02) Troponin I (<0.04) ng/mL C-Reactive Protein (<8.01) mg/L B-Natriuretic Peptide (<=100) pg/mL Blood Type B Negative Antibody Screen Negative Crossmatch See Detail Microbiology and Other Data: Microbiology 07/21/18 20:00 Stool Occult Blood (AUBREE) - Final Stool Assess/Plan/Problems-Billing Assessment: Mr. Handley is a 67yo with PMH of afib on Xarelto, CARON, DM2, GI bleed, GERD, HLD, and HTN who reportedly experiences occasionally bloody stools who presented to the ED with c/o SOB and was found to be anemic secondary to GI bleed. EGD showing gastric antral polyp. Planned EGD & colonoscopy 07/26. - Patient Problems (1) GI bleed Current Visit: Yes Status: Acute Code(s): K92.2 - GASTROINTESTINAL HEMORRHAGE, UNSPECIFIED SNOMED Code(s): 94842885 Comment: - EGD demonstrated antral grastric polyp. - NSAID use likely a contributing factor - got 1 more prbc for 6.9. 3 total - Appreciate GI consult; plan for another EGD/colonoscpy 07/[address] Méndez. - CHADS2-VASC score is 3 indicating a 3.2% risk of stroke per year and HAS-BLED score is 3 indicating a 5.8% risk of bleed; at this point the risk of bleed is greater than the risk of stroke and we will continue to hold xarelto - Continue protonix IV BID (2) Atrial flutter, paroxysmal Current Visit: Yes Status: Acute Code(s): I48.92 - UNSPECIFIED ATRIAL FLUTTER SNOMED Code(s): 467501333 Comment: - pFlutter on tele - Echo shows EF 50-55%, normal LVF, and PFO; no changes since prior exam in February - Hold xarelto - Continue multaq, metoprolol (3) DVT prophylaxis Current Visit: Yes Status: Acute Code(s): YTJ8217 - SNOMED Code(s): 173105653 Comment: - SCDs (4) Diabetes mellitus, type 2 Current Visit: Yes Status: Acute Comment: - Hold metformin, trulicity, glimepiride - Continue glargine 25U BID. (5) Full code status Current Visit: Yes Status: Acute Code(s): Z78.9 - OTHER SPECIFIED HEALTH STATUS SNOMED Code(s): 986066502 (6) GERD (gastroesophageal reflux disease) Current Visit: Yes Status: Acute Code(s): K21.9 - GASTRO-ESOPHAGEAL REFLUX DISEASE WITHOUT ESOPHAGITIS SNOMED Code(s): 311397531 Comment: - Home PPI on hold - Continue protonix IV (7) Hyperlipidemia Current Visit: Yes Status: Acute Code(s): E78.5 - HYPERLIPIDEMIA, UNSPECIFIED SNOMED Code(s): 39093620 Comment: - Continue atorvastatin (8) Hypertension Current Visit: Yes Status: Acute Code(s): I10 - ESSENTIAL (PRIMARY) HYPERTENSION SNOMED Code(s): 13150490 Comment: - Normotensive - Hold irbesartan, chlorthalidone - Continue metoprolol (9) CARON (obstructive sleep apnea) Current Visit: Yes Status: Acute Code(s): G47.33 - OBSTRUCTIVE SLEEP APNEA ( ADULT) (PEDIATRIC) SNOMED Code(s): 57281842 Comment: - CPAP (10) Shortness of breath Current Visit: Yes Status: Acute Code(s): R06.02 - SHORTNESS OF BREATH SNOMED Code(s): 278267399 Comment: - resolved. Concern on admission for CHF, though echo is unchanged (EF 50-55%). Suspect diastolic dysfunction. prn lasix. Does not know his dry weight. Status and Disposition: Inpatient. Anticipate d/c home when medically stable.
[2018-07-24] MEDS: Pantoprazole* 80 mg IN NS 80 MG/250 ML BAG IVPB SCH ×2 (05:03→16:20)
[2018-07-24 09:17] LABS: ABS Basophils 0 10^3/ul (0-0.2); ABS Eosinophils 0.2 10^3/ul (0-0.6); ABS Lymphocytes 1.2 10^3/ul (1.0-4.8); ABS Monocytes 0.6 10^3/ul (0-0.8); ABS Neutrophils 4.5 10^3/ul (1.5-7.7); ABS Nucleated RBC 0 10^3/ul; Eosinophil % 2.8 % (0-6); Hematocrit 25 % (42-52); Hemoglobin 7.8 g/dl (14.0-18.0); Lymphocyte % 19.1 % (25-47); Mean Corpuscular HGB Conc 31 g/dl (31-36); Mean Corpuscular Hemoglobin 22 pg (27-31); Mean Corpuscular Volume 72 fL (80-94); Mean Platelet Volume 8.3 fL (7.4-10.4); Nucleated Red Blood Cells % 0.2; Platelet Count 194 10^3/ul (150-450); Red Cell Distribution Width 21 % (10.5-15); White Blood Count 6.5 10^3/ul (3.5-10.8)
[2018-07-24] MEDS: Dronedarone TAB* 400 MG PO SCH ×2 (09:29→20:35)
[2018-07-24] MEDS: Metoprolol Tartrate TAB* 50 mg PO SCH ×2 (09:29→20:34)
[2018-07-24] MEDS: Insulin GLARGINE(*) 1 UNITS UNIT SUBCUT SCH ×3 (09:30→20:35)
[2018-07-24] MEDS: Ferrous Gluconate TAB* 324 MG TAB PO SCH ×3 (09:30→20:33)
[2018-07-24 10:34] LABS: EGFR Non-African American 61.4 (>60)
[2018-07-24] MEDS ORDERED: Magnesium Sulfate 2 GM IV* 2 GM/50 ML BAG IVPB ONE (12:00)
[2018-07-24] MEDS ORDERED: Dextrose 50% Syringe 50 ML* 25 GM/50 ML SYRINGE IV PUSH PRN (14:24)
--- NOTE | 2018-07-24 16:07 | PN ---
Subjective Date of Service: 07/24/18 Interval History: NAEON, afebrile, NSR on tele, hemodynamically stable Marana really tired while sitting in chair 1330 today, fell right to sleep as soon as got to the bed, slept 2 straight hours. No tele events during this time period. No BM today. no chest pain, SOB, f/c/n/v. Family History: Unchanged from Admission Social History: Unchanged from Admission Past Medical History: Unchanged from Admission Objective Active Medications: Acetaminophen (Tylenol Tab*) 650 mg PO Q4H PRN PRN Reason: FEVER/PAIN Al Hydrox/Mg Hydrox/Simethicone (Maalox Plus*) 30 ml PO Q6H PRN PRN Reason: INDIGESTION Atorvastatin Calcium (Lipitor*) 10 mg PO 1700 [facility] Last Admin: 07/23/18 16:30 Dose: 10 mg Dextrose (D50w Syringe 50 Ml*) 12.5 gm IV PUSH .FOR FS < 60 - SS PRN PRN Reason: FS < 60 Docusate Sodium (Colace Cap*) 100 mg PO BID PRN PRN Reason: CONSTIPATION Dronedarone (Multaq Tab*) 400 mg PO BID [facility] Last Admin: 07/24/18 09:29 Dose: 400 mg Ferrous Gluconate (Fergon Tab*) 324 mg PO TID [facility] Last Admin: 07/24/18 13:23 Dose: 324 mg Insulin Glargine (Lantus(*)) 35 units SUBCUT Q12HR [facility] Last Admin: 07/24/18 09:30 Dose: 35 units Insulin Human Lispro (Humalog*) 0 units SUBCUT [facility]; Protocol Metoprolol Tartrate (Lopressor Tab*) 50 mg PO Q12HR [facility] Last Admin: 07/24/18 09:29 Dose: 50 mg Ondansetron HCl (Zofran Inj*) 4 mg IV Q4H PRN PRN Reason: NAUSEA/VOMITING Pantoprazole Sodium (Protonix Iv*) 40 mg IV Q12H [facility] Senna (Senokot Tab*) 1 tab PO BID PRN PRN Reason: CONSTIPATION Vital Signs - 8 hr 07/24/18 11:17 Temperature 99.6 F Pulse Rate 88 Respiratory 20 Rate Blood Pressure 134/62 (mmHg) O2 Sat by Pulse 97 Oximetry Oxygen Devices in Use Now: None Appearance: NAD Eyes: No Scleral Icterus, PERRLA Ears/Nose/Mouth/Throat: NL Teeth, Lips, Gums, Mucous Membranes Moist Neck: NL Appearance and Movements; NL JVP, Trachea Midline Respiratory: Symmetrical Chest Expansion and Respiratory Effort, Clear to Auscultation Abdominal: - - morbidly obese, nontender. Extremities: - - 1-2+ edema Neurological: Alert and Oriented x 3, NL Sensation, NL Muscle Strength and Tone Nutrition: Taking PO's Result Diagrams: 07/24/18 05:41 07/24/18 05:41 Additional Lab and Data: Laboratory Results - last 24 hr 07/24/18 07/24/18 07/24/18 05:41 05:41 05:41 WBC 6.5 RBC 3.50 L Hgb 7.8 L Hct 25 L MCV 72 L MCH 22 L MCHC 31 RDW 21 H Plt Count 194 MPV 8.3 Neut % (Auto) 68.7 Lymph % (Auto) 19.1 L Andrew % (Auto) 8.8 H Eos % (Auto) 2.8 Baso % (Auto) 0.6 Absolute Neuts (auto) 4.5 Absolute Lymphs (auto) 1.2 Absolute Monos (auto) 0.6 Absolute Eos (auto) 0.2 Absolute Basos (auto) 0 Absolute Nucleated RBC 0 Nucleated RBC % 0.2 Sodium 137 Potassium 4.4 Chloride 107 Carbon Dioxide 18 L Anion Gap 12 H BUN 21 Creatinine 1.18 H Est GFR ( Amer) 74.3 Est GFR (Non-Af Amer) 61.4 BUN/Creatinine Ratio 17.8 Glucose 133 H POC Glucose (mg/dL) Calcium 8.6 Magnesium 1.8 L Iron 25 L TIBC 414 % Saturation 6 L Unsat Iron Binding < 399 Transferrin 296 Ferritin 9.0 L 07/24/18 07/24/18 07/24/18 07:37 11:58 16:01 WBC RBC Hgb Hct MCV MCH MCHC RDW Plt Count MPV Neut % (Auto) Lymph % (Auto) Andrew % (Auto) Eos % (Auto) Baso % (Auto) Absolute Neuts (auto) Absolute Lymphs (auto) Absolute Monos (auto) Absolute Eos (auto) Absolute Basos (auto) Absolute Nucleated RBC Nucleated RBC % Sodium Potassium Chloride Carbon Dioxide Anion Gap BUN Creatinine Est GFR ( Amer) Est GFR (Non-Af Amer) BUN/Creatinine Ratio Glucose POC Glucose (mg/dL) 152 H 203 H 255 H Calcium Magnesium Iron TIBC % Saturation Unsat Iron Binding Transferrin Ferritin Microbiology and Other Data: Microbiology 07/21/18 20:00 Stool Stool Occult Blood (AUBREE) - Final Assess/Plan/Problems-Billing Assessment: Mr. Handley is a 67yo with PMH of Afib on Xarelto, CARON, DM2, GI bleed, GERD, HLD, and HTN who reportedly experiences occasionally bloody stools who presented to the ED with c/o SOB and was found to be anemic secondary to GI bleed. EGD showing gastric antral polyp. Planned EGD & colonoscopy 07/26. - Patient Problems (1) GI bleed Current Visit: Yes Status: Acute Code(s): K92.2 - GASTROINTESTINAL HEMORRHAGE, UNSPECIFIED SNOMED Code(s): 06026384 Comment: - EGD demonstrated antral grastric polyp. - NSAID use likely a contributing factor - 3 total pRBC this admission. - Appreciate GI consult; plan for another EGD/colonoscpy 07/[address] Méndez. will place on clear liquid diet starting tonight and plan for prep tomorrow. - CHADS2-VASC score is 3 indicating a 3.2% risk of stroke per year and HAS-BLED score is 3 indicating a 5.8% risk of bleed; at this point the risk of bleed is greater than the risk of stroke and we will continue to hold xarelto - Continue protonix IV BID (2) Atrial flutter, paroxysmal Current Visit: Yes Status: Acute Code(s): I48.92 - UNSPECIFIED ATRIAL FLUTTER SNOMED Code(s): 602697148 Comment: - NSR today on tele, repleted Mg today. - Echo shows EF 50-55%, normal LVF, and PFO; no changes since prior exam in February - Hold xarelto - Continue multaq, metoprolol (3) DVT prophylaxis Current Visit: Yes Status: Acute Code(s): CRO4500 - SNOMED Code(s): 019428752 Comment: - SCDs ordered. (4) Diabetes mellitus, type 2 Current Visit: Yes Status: Acute Comment: - Hold metformin, trulicity, glimepiride - Increase glargine from 25U to 35U BID. add sliding scale qachs (5) Full code status Current Visit: Yes Status: Acute Code(s): Z78.9 - OTHER SPECIFIED HEALTH STATUS SNOMED Code(s): 987959074 (6) GERD (gastroesophageal reflux disease) Current Visit: Yes Status: Acute Code(s): K21.9 - GASTRO-ESOPHAGEAL REFLUX DISEASE WITHOUT ESOPHAGITIS SNOMED Code(s): 467988602 Comment: - Home PPI on hold - Continue protonix IV BID (7) Hyperlipidemia Current Visit: Yes Status: Acute Code(s): E78.5 - HYPERLIPIDEMIA, UNSPECIFIED SNOMED Code(s): 69021415 Comment: - Continue atorvastatin (8) Hypertension Current Visit: Yes Status: Acute Code(s): I10 - ESSENTIAL (PRIMARY) HYPERTENSION SNOMED Code(s): 55418692 Comment: - Normotensive - Hold irbesartan, - restart chlorthalidone - Continue metoprolol (9) CARON (obstructive sleep apnea) Current Visit: Yes Status: Acute Code(s): G47.33 - OBSTRUCTIVE SLEEP APNEA ( ADULT) (PEDIATRIC) SNOMED Code(s): 60217181 Comment: - CPAP (10) Shortness of breath Current Visit: Yes Status: Acute Code(s): R06.02 - SHORTNESS OF BREATH SNOMED Code(s): 819698020 Comment: - resolved. Concern on admission for CHF, though echo is unchanged (EF 50-55%). Suspect diastolic dysfunction. prn lasix but will restart his chlorothiadone now. Does not know his dry weight. Status and Disposition: Inpatient. Anticipate d/c home when medically stable.
[2018-07-24] MEDS ORDERED: Insulin LISPRO* 1 UNITS UNIT SUBCUT SCH (16:30)
[2018-07-24] MEDS: Atorvastatin* 10 MG TAB PO SCH (17:25)
[2018-07-24] MEDS: Nystatin CREAM* 15 GM TUBE TOPICAL SCH (21:59)
[2018-07-25] MEDS: Metoprolol Tartrate TAB* 50 mg PO SCH ×2 (08:35→21:14)
[2018-07-25] MEDS: Ferrous Gluconate TAB* 324 MG TAB PO SCH ×3 (08:35→21:13)
[2018-07-25] MEDS: Insulin LISPRO* 1 UNITS UNIT SUBCUT SCH ×3 (08:36→17:17)
[2018-07-25] MEDS: Pantoprazole IV* 40 MG IV SCH ×2 (08:36→21:14)
[2018-07-25] MEDS: Dronedarone TAB* 400 MG PO SCH ×2 (08:36→21:14)
[2018-07-25] MEDS: Insulin GLARGINE(*) 1 UNITS UNIT SUBCUT SCH (08:37)
[2018-07-25] MEDS ORDERED: PEG 3000 GI LAVAGE* 1 GALLON PO ONE ×2 (10:01→17:00)
[2018-07-25 10:11] LABS: ABS Basophils 0 10^3/ul (0-0.2); ABS Eosinophils 0.3 10^3/ul (0-0.6); ABS Lymphocytes 1.1 10^3/ul (1.0-4.8); ABS Monocytes 0.6 10^3/ul (0-0.8); ABS Neutrophils 5.1 10^3/ul (1.5-7.7); ABS Nucleated RBC 0 10^3/ul; Eosinophil % 3.7 % (0-6); Hematocrit 26 % (42-52); Mean Corpuscular HGB Conc 31 g/dl (31-36); Mean Corpuscular Hemoglobin 22 pg (27-31); Mean Corpuscular Volume 72 fL (80-94); Mean Platelet Volume 8.2 fL (7.4-10.4); Nucleated Red Blood Cells % 0.1; Platelet Count 189 10^3/ul (150-450); Red Blood Count 3.63 10^6/ul (4.00-5.40); Red Cell Distribution Width 21 % (10.5-15); White Blood Count 7.1 10^3/ul (3.5-10.8)
[2018-07-25] MEDS: Chlorthalidone TAB* 50 MG PO SCH (10:40)
[2018-07-25] MEDS: Nystatin CREAM* 15 GM TUBE TOPICAL SCH ×3 (10:40→22:14)
[2018-07-25] MEDS: Atorvastatin* 10 MG TAB PO SCH (17:16)
--- NOTE | 2018-07-25 19:21 | PN ---
Subjective Interval History: prep for EGD/colo hypoglycemic to 48, improved to 150s. Lantus stopped. denies chest pain, SOB, abdominal pain or other complaint. Family History: Unchanged from Admission Social History: Unchanged from Admission Past Medical History: Unchanged from Admission Objective Active Medications: Acetaminophen (Tylenol Tab*) 650 mg PO Q4H PRN PRN Reason: FEVER/PAIN Al Hydrox/Mg Hydrox/Simethicone (Maalox Plus*) 30 ml PO Q6H PRN PRN Reason: INDIGESTION Atorvastatin Calcium (Lipitor*) 10 mg PO 1700 [facility] Last Admin: 07/25/18 17:16 Dose: 10 mg Chlorthalidone (Hygroton Tab*) 12.5 mg PO DAILY [facility] Last Admin: 07/25/18 10:40 Dose: 12.5 mg Dextrose (D50w Syringe 50 Ml*) 12.5 gm IV PUSH .FOR FS < 60 - SS PRN PRN Reason: FS < 60 Docusate Sodium (Colace Cap*) 100 mg PO BID PRN PRN Reason: CONSTIPATION Dronedarone (Multaq Tab*) 400 mg PO BID [facility] Last Admin: 07/25/18 08:36 Dose: 400 mg Ferrous Gluconate (Fergon Tab*) 324 mg PO TID [facility] Last Admin: 07/25/18 13:45 Dose: 324 mg Insulin Human Lispro (Humalog*) 0 units SUBCUT AC [facility]; Protocol Last Admin: 07/25/18 17:17 Dose: 2 units Metoprolol Tartrate (Lopressor Tab*) 50 mg PO Q12HR [facility] Last Admin: 07/25/18 08:35 Dose: 50 mg Nystatin (Nystatin Cream*) 1 applic TOPICAL TID [facility] Last Admin: 07/25/18 13:45 Dose: 1 applic Ondansetron HCl (Zofran Inj*) 4 mg IV Q4H PRN PRN Reason: NAUSEA/VOMITING Pantoprazole Sodium (Protonix Iv*) 40 mg IV Q12H [facility] Last Admin: 07/25/18 08:36 Dose: 40 mg Polyethylene Glycol/Electrolytes (Golytely*) 1,000 ml PO ONCE ONE Stop: 07/26/18 06:01 Senna (Senokot Tab*) 1 tab PO BID PRN PRN Reason: CONSTIPATION Vital Signs - 8 hr 07/25/18 07/25/18 11:46 15:54 Temperature 98.5 F 99.1 F Pulse Rate 74 87 Respiratory 18 16 Rate Blood Pressure 127/68 146/65 (mmHg) O2 Sat by Pulse 97 98 Oximetry Oxygen Devices in Use Now: None Appearance: NAD Eyes: No Scleral Icterus, PERRLA Ears/Nose/Mouth/Throat: NL Teeth, Lips, Gums Neck: NL Appearance and Movements; NL JVP Respiratory: Symmetrical Chest Expansion and Respiratory Effort, Clear to Auscultation Cardiovascular: NL Sounds; No Murmurs; No JVD, RRR Abdominal: - - soft, distended, obses. Extremities: - - 1-2+ edema LE Neurological: Alert and Oriented x 3, NL Sensation, NL Muscle Strength and Tone Result Diagrams: 07/25/18 09:45 07/24/18 05:41 Additional Lab and Data: Laboratory Results - last 24 hr 07/25/18 07/25/18 07/25/18 08:05 09:45 12:04 WBC 7.1 RBC 3.63 L Hgb 8.0 L Hct 26 L MCV 72 L MCH 22 L MCHC 31 RDW 21 H Plt Count 189 MPV 8.2 Neut % (Auto) 72.3 Lymph % (Auto) 15.0 L [place] % (Auto) 8.4 H Eos % (Auto) 3.7 Baso % (Auto) 0.6 Absolute Neuts (auto) 5.1 Absolute Lymphs (auto) 1.1 Absolute Monos (auto) 0.6 Absolute Eos (auto) 0.3 Absolute Basos (auto) 0 Absolute Nucleated RBC 0 Nucleated RBC % 0.1 POC Glucose (mg/dL) 155 H 48 L 07/25/18 07/25/18 12:05 16:58 WBC RBC Hgb Hct MCV MCH MCHC RDW Plt Count MPV Neut % (Auto) Lymph % (Auto) [place] % (Auto) Eos % (Auto) Baso % (Auto) Absolute Neuts (auto) Absolute Lymphs (auto) Absolute Monos (auto) Absolute Eos (auto) Absolute Basos (auto) Absolute Nucleated RBC Nucleated RBC % POC Glucose (mg/dL) 149 H 150 H Microbiology and Other Data: Microbiology 07/21/18 20:00 Stool Stool Occult Blood (AUBREE) - Final Assess/Plan/Problems-Billing Assessment: Mr. Handley is a 67yo with PMH of Afib on Xarelto, CARON, DM2, GI bleed, GERD, HLD, and HTN who reportedly experiences occasionally bloody stools who presented to the ED with c/o SOB and was found to be anemic secondary to GI bleed. EGD showing gastric antral polyp. Planned EGD & colonoscopy 07/26. - Patient Problems (1) GI bleed Current Visit: Yes Status: Acute Code(s): K92.2 - GASTROINTESTINAL HEMORRHAGE, UNSPECIFIED SNOMED Code(s): 87026169 Comment: - EGD demonstrated antral grastric polyp. - NSAID use likely a contributing factor - 3 total pRBC this admission. - Appreciate GI consult; plan for another EGD/colonoscpy 07/[address] Méndez. - CHADS2-VASC score is 3 indicating a 3.2% risk of stroke per year and HAS-BLED score is 3 indicating a 5.8% risk of bleed; at this point the risk of bleed is greater than the risk of stroke and we will continue to hold xarelto - Continue protonix IV BID (2) Atrial flutter, paroxysmal Current Visit: Yes Status: Acute Code(s): I48.92 - UNSPECIFIED ATRIAL FLUTTER SNOMED Code(s): 755986965 Comment: - Echo shows EF 50-55%, normal LVF, and PFO; no changes since prior exam in February - Hold xarelto - Continue multaq, metoprolol (3) DVT prophylaxis Current Visit: Yes Status: Acute Code(s): EPF0438 - SNOMED Code(s): 551407196 Comment: - SCDs ordered. (4) Diabetes mellitus, type 2 Current Visit: Yes Status: Acute Comment: - Hold metformin, trulicity, glimepiride - stop 35U BID (had fallen to 48 on the clear liquid diet and will be npo later tonight. continue sliding scale qachs - home is 50U BID (5) Full code status Current Visit: Yes Status: Acute Code(s): Z78.9 - OTHER SPECIFIED HEALTH STATUS SNOMED Code(s): 327329402 (6) GERD (gastroesophageal reflux disease) Current Visit: Yes Status: Acute Code(s): K21.9 - GASTRO-ESOPHAGEAL REFLUX DISEASE WITHOUT ESOPHAGITIS SNOMED Code(s): 836425218 Comment: - Home PPI on hold - Continue protonix IV BID (7) Hyperlipidemia Current Visit: Yes Status: Acute Code(s): E78.5 - HYPERLIPIDEMIA, UNSPECIFIED SNOMED Code(s): 29809675 Comment: - Continue atorvastatin (8) Hypertension Current Visit: Yes Status: Acute Code(s): I10 - ESSENTIAL (PRIMARY) HYPERTENSION SNOMED Code(s): 64678666 Comment: - Normotensive - Hold irbesartan, - continue chlorthalidone - Continue metoprolol (9) CARON (obstructive sleep apnea) Current Visit: Yes Status: Acute Code(s): G47.33 - OBSTRUCTIVE SLEEP APNEA ( ADULT) (PEDIATRIC) SNOMED Code(s): 54105806 Comment: - CPAP (10) Shortness of breath Current Visit: Yes Status: Acute Code(s): R06.02 - SHORTNESS OF BREATH SNOMED Code(s): 618451039 Comment: - resolved. Concern on admission for CHF, though echo is unchanged (EF 50-55%). Suspect diastolic dysfunction. home chlorothiadone continued. Does not know his dry weight. Status and Disposition: Inpatient. Anticipate d/c home when medically stable.
[2018-07-26] MEDS ORDERED: PEG 3000 GI LAVAGE* 1 GALLON PO ONE (06:00)
[2018-07-26 07:14] LABS: ABS Basophils 0.1 10^3/ul (0-0.2); ABS Eosinophils 0.3 10^3/ul (0-0.6); ABS Lymphocytes 1.2 10^3/ul (1.0-4.8); ABS Monocytes 0.7 10^3/ul (0-0.8); ABS Neutrophils 5.4 10^3/ul (1.5-7.7); ABS Nucleated RBC 0 10^3/ul; Eosinophil % 3.5 % (0-6); Hematocrit 28 % (42-52); Hemoglobin 8.5 g/dl (14.0-18.0); Lymphocyte % 15.8 % (25-47); Mean Corpuscular HGB Conc 31 g/dl (31-36); Mean Corpuscular Hemoglobin 22 pg (27-31); Mean Corpuscular Volume 71 fL (80-94); Mean Platelet Volume 8.2 fL (7.4-10.4); Nucleated Red Blood Cells % 0.2; Platelet Count 210 10^3/ul (150-450); Red Blood Count 3.93 10^6/ul (4.00-5.40); Red Cell Distribution Width 21 % (10.5-15); White Blood Count 7.6 10^3/ul (3.5-10.8)
[2018-07-26] MEDS: Pantoprazole IV* 40 MG IV SCH ×2 (08:02→18:21)
[2018-07-26] MEDS: Insulin LISPRO* 1 UNITS UNIT SUBCUT SCH ×3 (08:06→18:15)
[2018-07-26] MEDS: Nystatin CREAM* 15 GM TUBE TOPICAL SCH ×3 (08:15→23:10)
[2018-07-26] MEDS ORDERED: fentaNYL* 50 MCG/ML 2 ML VIAL (100 MCG VIAL) ONE (13:32)
[2018-07-26] MEDS ORDERED: Midazolam* 1 MG/ML 10 ML VIAL (10 MG) ONE (13:32)
[2018-07-26] MEDS: Chlorthalidone TAB* 50 MG PO SCH (15:34)
[2018-07-26] MEDS: Dronedarone TAB* 400 MG PO SCH ×2 (15:35→19:32)
[2018-07-26] MEDS: Ferrous Gluconate TAB* 324 MG TAB PO SCH ×2 (15:35→15:36)
[2018-07-26] MEDS: Metoprolol Tartrate TAB* 50 mg PO SCH ×2 (15:35→19:34)
--- NOTE | 2018-07-26 17:40 | PN ---
Subjective Date of Service: 07/26/18 Interval History: Pt is seen post EGD, denies pain, is on 02 currently. denies SOB Family History: Unchanged from Admission Social History: Unchanged from Admission Past Medical History: Unchanged from Admission Objective Active Medications: Acetaminophen (Tylenol Tab*) 650 mg PO Q4H PRN PRN Reason: FEVER/PAIN Al Hydrox/Mg Hydrox/Simethicone (Maalox Plus*) 30 ml PO Q6H PRN PRN Reason: INDIGESTION Atorvastatin Calcium (Lipitor*) 10 mg PO 1700 [facility] Last Admin: 07/25/18 17:16 Dose: 10 mg Chlorthalidone (Hygroton Tab*) 12.5 mg PO DAILY [facility] Last Admin: 07/26/18 15:34 Dose: Not Given Dextrose (D50w Syringe 50 Ml*) 12.5 gm IV PUSH .FOR FS < 60 - SS PRN PRN Reason: FS < 60 Docusate Sodium (Colace Cap*) 100 mg PO BID PRN PRN Reason: CONSTIPATION Dronedarone (Multaq Tab*) 400 mg PO BID [facility] Last Admin: 07/26/18 15:35 Dose: Not Given Ferrous Gluconate (Fergon Tab*) 324 mg PO TID [facility] Last Admin: 07/26/18 15:36 Dose: Not Given Insulin Human Lispro (Humalog*) 0 units SUBCUT [facility]; Protocol Last Admin: 07/26/18 13:22 Dose: Not Given Metoprolol Tartrate (Lopressor Tab*) 50 mg PO Q12HR [facility] Last Admin: 07/26/18 15:35 Dose: Not Given Nystatin (Nystatin Cream*) 1 applic TOPICAL TID [facility] Last Admin: 07/26/18 15:36 Dose: Not Given Ondansetron HCl (Zofran Inj*) 4 mg IV Q4H PRN PRN Reason: NAUSEA/VOMITING Pantoprazole Sodium (Protonix Iv*) 40 mg IV Q12H [facility] Last Admin: 07/26/18 08:02 Dose: 40 mg Senna (Senokot Tab*) 1 tab PO BID PRN PRN Reason: CONSTIPATION Vital Signs - 8 hr 07/26/18 07/26/18 11:16 17:15 Temperature 100.4 F 99.5 F Pulse Rate 92 98 Respiratory 18 16 Rate Blood Pressure 131/69 138/69 (mmHg) O2 Sat by Pulse 95 97 Oximetry Oxygen Devices in Use Now: None Appearance: 67 yo M, obese in NAD, AAOx3 Eyes: No Scleral Icterus, PERRLA Ears/Nose/Mouth/Throat: NL Teeth, Lips, Gums, Mucous Membranes Moist Neck: NL Appearance and Movements; NL JVP, Trachea Midline Respiratory: Symmetrical Chest Expansion and Respiratory Effort, Clear to Auscultation Cardiovascular: NL Sounds; No Murmurs; No JVD Abdominal: NL Sounds; No Tenderness; No Distention Lymphatic: No Cervical Adenopathy Extremities: No Clubbing, Cyanosis, - - trace pedal edema b/l Skin: - - venous stasis disoloration b/l LE's Neurological: Alert and Oriented x 3, NL Muscle Strength and Tone Result Diagrams: 07/26/18 06:51 07/24/18 05:41 Additional Lab and Data: Laboratory Results - last 24 hr 07/25/18 07/25/18 07/25/18 08:05 09:45 12:04 WBC 7.1 RBC 3.63 L Hgb 8.0 L Hct 26 L MCV 72 L MCH 22 L MCHC 31 RDW 21 H Plt Count 189 MPV 8.2 Neut % (Auto) 72.3 Lymph % (Auto) 15.0 L [place] % (Auto) 8.4 H Eos % (Auto) 3.7 Baso % (Auto) 0.6 Absolute Neuts (auto) 5.1 Absolute Lymphs (auto) 1.1 Absolute Monos (auto) 0.6 Absolute Eos (auto) 0.3 Absolute Basos (auto) 0 Absolute Nucleated RBC 0 Nucleated RBC % 0.1 POC Glucose (mg/dL) 155 H 48 L 07/25/18 07/25/18 12:05 16:58 WBC RBC Hgb Hct MCV MCH MCHC RDW Plt Count MPV Neut % (Auto) Lymph % (Auto) [place] % (Auto) Eos % (Auto) Baso % (Auto) Absolute Neuts (auto) Absolute Lymphs (auto) Absolute Monos (auto) Absolute Eos (auto) Absolute Basos (auto) Absolute Nucleated RBC Nucleated RBC % POC Glucose (mg/dL) 149 H 150 H Microbiology and Other Data: Microbiology 07/21/18 20:00 Stool Stool Occult Blood (AUBREE) - Final Assess/Plan/Problems-Billing Assessment: Mr. Handley is a 67yo with PMH of Afib on Xarelto, CARON, DM2, GI bleed, GERD, HLD, and HTN who reportedly experiences occasionally bloody stools who presented to the ED with c/o SOB and was found to be anemic secondary to GI bleed. EGD showing gastric antral polyp. - Patient Problems (1) GI bleed Comment: - EGD demonstrated antral grastric polyp, s/p excision by Dr. Méndez today. cont IV PPI today, then omeprazole. cont clear liquids - NSAID use likely a contributing factor - 3 total pRBC this admission. - Appreciate GI consult; plan for another EGD/colonoscpy 07/[address] Méndez. - CHADS2-VASC score is 3 indicating a 3.2% risk of stroke per year and HAS-BLED score is 3 indicating a 5.8% risk of bleed; at this point the risk of bleed is greater than the risk of stroke and we will continue to hold xarelto till next week - Continue protonix IV BID (2) Atrial flutter, paroxysmal Comment: - Echo shows EF 50-55%, normal LVF, and PFO; no changes since prior exam in February - Hold xarelto - Continue multaq, metoprolol - in NSR (3) Diabetes mellitus, type 2 Comment: - Hold metformin, trulicity, glimepiride - stopped Lantus (had fallen to 48 on the clear liquid diet )continue sliding scale - home is 50U BID (4) GERD (gastroesophageal reflux disease) Comment: - Home PPI on hold - Continue protonix IV BID (5) Hypertension Comment: - Normotensive - Hold irbesartan, - continue chlorthalidone - Continue metoprolol (6) Shortness of breath Comment: - resolved. Concern on admission for CHF, though echo is unchanged (EF 50-55%). Suspect diastolic dysfunction. home chlorothiadone continued. Does not know his dry weight. (7) DVT prophylaxis Comment: - SCDs ordered. Status and Disposition: Inpatient. Anticipate d/c home tomorrow
[2018-07-26] MEDS: Atorvastatin* 10 MG TAB PO SCH (18:21)
[2018-07-26] MEDS: Lidocaine PATCH 5%* 1 PATCH TRANSDERM SCH (19:31)
[2018-07-26] MEDS ORDERED: Lidocaine Patch REMOVE* 1 NOTE MISC SCH (21:00)
[2018-07-26] MEDS ORDERED: Ketorolac INJ* 15 MG/ML 1 ML VIAL IV PUSH ONE (23:00)
[2018-07-27] MEDS: Pantoprazole IV* 40 MG IV SCH (05:56)
[2018-07-27 06:42] LABS: ABS Basophils 0 10^3/ul (0-0.2); ABS Eosinophils 0.2 10^3/ul (0-0.6); ABS Lymphocytes 1.1 10^3/ul (1.0-4.8); ABS Monocytes 0.6 10^3/ul (0-0.8); ABS Neutrophils 4.5 10^3/ul (1.5-7.7); ABS Nucleated RBC 0 10^3/ul; Eosinophil % 3.2 % (0-6); Hematocrit 26 % (42-52); Mean Corpuscular HGB Conc 31 g/dl (31-36); Mean Corpuscular Hemoglobin 22 pg (27-31); Mean Corpuscular Volume 71 fL (80-94); Mean Platelet Volume 8.4 fL (7.4-10.4); Nucleated Red Blood Cells % 0.1; Platelet Count 186 10^3/ul (150-450); Red Blood Count 3.61 10^6/ul (4.00-5.40); Red Cell Distribution Width 21 % (10.5-15); White Blood Count 6.4 10^3/ul (3.5-10.8)
[2018-07-27 07:02] LABS: EGFR Non-African American 71.8 (>60)
[2018-07-27] MEDS: Insulin LISPRO* 1 UNITS UNIT SUBCUT SCH ×2 (08:52→12:03)
[2018-07-27] MEDS: Dronedarone TAB* 400 MG PO SCH (08:53)
[2018-07-27] MEDS: Metoprolol Tartrate TAB* 50 mg PO SCH (08:53)
[2018-07-27] MEDS: Lidocaine PATCH 5%* 1 PATCH TRANSDERM SCH (08:56)
[2018-07-27] MEDS: Nystatin CREAM* 15 GM TUBE TOPICAL SCH ×2 (08:58→14:48)
[2018-07-27] MEDS ORDERED: Omeprazole CAP* 20 MG PO SCH (09:00)
[2018-07-27] MEDS: Chlorthalidone TAB* 50 MG PO SCH (09:04)
--- NOTE | 2018-07-27 09:32 | PRO ---
DATE: 07/26/18 - ROOM #449 REFERRING PHYSICIAN: Dr. Rell Saldana.* PROCEDURE: Upper gastrointestinal endoscopy and electrified snare polypectomy mid greater curvature 2-cm lesion after Eleview lift followed by clipping for hemostasis prophylactically; colonoscopy to cecum and electrified snare polypectomy 14-mm polyp at rectosigmoid at about 15 cm, followed by prophylactic clipping of the stalk. 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 He was found to be profoundly anemic with a hemoglobin in the 5s, microcytic. He has been transfused. His Elavil was held in preparation for this procedure. He has had a gastric polyp removed 5 years ago. A followup exam planned for this spring was not carried out because he went into atrial fibrillation. He has been followed by Dr. Macario since then and [address] Macario and his rhythm was normal. He has tolerated the Xarelto well with no gastrointestinal symptoms recently. His bowels have been normal, brown and without any melena or maroon stool. He prepped last night for both procedures. Dr. Charlene Espino looked into the stomach 4 days ago and saw a recurring gastric polyp. At that point, he had not been off the Xarelto more than 20 hours. ENDOSCOPIST: Dr. Méndez. MEDICATIONS: Midazolam 12.5, fentanyl 150. FINDINGS: He is a morbidly obese man in no overt distress. He is positioned on his side and moderate sedation induced with a few milligrams of midazolam and 50 of fentanyl. For a prolonged set of procedures, multiple additional increments were given to the total dose as described. He tolerated the exams quite well from a cardiopulmonary point of view, though periodically he was conversant. EGD: Larynx - not seen. Esophagus - easily entered and the mucosa was normal in the upper and midesophagus and then there is a slightly pale, soft, smooth external compression from about a 3 to 6 o'clock orientation from 35 to 38. It is consistent in its contours with a lipoma, though not overtly yellow. Nonetheless, it does not have a nodular appearance or any pulsatile quality. The EG junction at 40 appears normal. Stomach - Just beyond the EG junction, after there had been some gagging, there was some blood splatter and it appeared to be coming from a small 8-mm friable polyp at 2 o'clock orientation in the gastric cardia. It could be seen on retroflexion and bleeding had stopped. No AVM was seen. There was no ulcer. Gastric polyp was present in the distal gastric body, greater curvature aspect. So, there was no obvious deformation of the wall or ulceration or plateauing on the surface of the polyp. It appeared substantial but benign and was standing up on the non-deformed mucosa. Duodenum - the pylorus bulb and 2nd through 4th portions appeared normal. Coming back to the polyp, as it appeared to not be overly invading the wall, Eleview was used 4.5 cc and did appear to lift the mucosa. A snare was used at 25 pressley and resected the specimen, which was retrieved with a net and brought out through the mouth. The scope was reinserted and 3 clips were deployed prophylactically. There had been no bleeding. COLONOSCOPY: The patient still substantially sedated. The colonoscope was inserted and catered a good prep. The scope advanced easily through the sigmoid , descending, transverse and right colon to the cecum. No polyps were seen during insertion and there was no blood or diverticulosis. Higher up, there was a fair amount of turbid fluid limiting views slightly. Coming back from the cecum, no abnormalities were noted until in the rectosigmoid where a 14-mm erythematous polyp with slightly white tipped head was noted. It was looped with a hot snare and resected with slight flash of bleeding transiently. Given the possibility of atrial fibrillation and priority of restarting anticoagulation, the stalk was clipped. There were no abnormalities in the distal rectum. IMPRESSION: 1. 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 2. Gastric cardia polyp - low risk currently. 3. Gastric greater curvature polyp - resected after Eleview deployment and now clipped. Histology pending which will determine the followup plan. 4. Rectosigmoid polyp - removed. 5. Otherwise normal colonoscopy to the cecum. 6. Severe iron-deficiency anemia - when seen at the followup, repeat Hemoccults will be done and they will be followed sequentially before considering Xarelto again probably in a month to 6 weeks. [id number]/[facility] #: [id number] [facility]
[2018-07-27] MEDS ORDERED: Furosemide IV* 10 MG/ML VIAL (40 MG) IV ONE (13:41)
[2018-07-27] MEDS ORDERED: Insulin GLARGINE(*) 1 UNITS UNIT SUBCUT SCH (14:00)
--- NOTE | 2018-07-27 14:05 | PN ---
Subjective Date of Service: 07/27/18 Interval History: " my left ankle hurt, must have sprained it yesterday" Family History: Unchanged from Admission Social History: Unchanged from Admission Past Medical History: Unchanged from Admission Objective Active Medications: Acetaminophen (Tylenol Tab*) 650 mg PO Q4H PRN PRN Reason: FEVER/PAIN Last Admin: 07/27/18 12:02 Dose: 650 mg Al Hydrox/Mg Hydrox/Simethicone (Maalox Plus*) 30 ml PO Q6H PRN PRN Reason: INDIGESTION Atorvastatin Calcium (Lipitor*) 10 mg PO 1700 [facility] Last Admin: 07/26/18 18:21 Dose: 10 mg Chlorthalidone (Hygroton Tab*) 12.5 mg PO DAILY [facility] Last Admin: 07/27/18 09:04 Dose: 12.5 mg Dextrose (D50w Syringe 50 Ml*) 12.5 gm IV PUSH .FOR FS < 60 - SS PRN PRN Reason: FS < 60 Docusate Sodium (Colace Cap*) 100 mg PO BID PRN PRN Reason: CONSTIPATION Dronedarone (Multaq Tab*) 400 mg PO BID [facility] Last Admin: 07/27/18 08:53 Dose: 400 mg Insulin Glargine (Lantus(*)) 15 units SUBCUT Q24H [facility] Insulin Human Lispro (Humalog*) 0 units SUBCUT AC [facility]; Protocol Last Admin: 07/27/18 12:03 Dose: 6 units Lidocaine (Lidoderm 5% Patch*) 1 patch TRANSDERM DAILY [facility] Last Admin: 07/27/18 08:56 Dose: 1 patch Metoprolol Tartrate (Lopressor Tab*) 50 mg PO Q12HR [facility] Last Admin: 07/27/18 08:53 Dose: 50 mg Nystatin (Nystatin Cream*) 1 applic TOPICAL TID [facility] Last Admin: 07/27/18 08:58 Dose: 1 applic Omeprazole (Prilosec Cap*) 20 mg PO BID [facility] Last Admin: 07/27/18 08:53 Dose: 20 mg Ondansetron HCl (Zofran Inj*) 4 mg IV Q4H PRN PRN Reason: NAUSEA/VOMITING Pharmacy Profile Note (Lidocaine Patch Remove*) 1 note N/A 2100 [facility] Last Admin: 07/26/18 19:33 Dose: Not Given Senna (Senokot Tab*) 1 tab PO BID PRN PRN Reason: CONSTIPATION Vital Signs - 8 hr 07/27/18 07/27/18 07:28 08:00 Temperature 100.0 F Pulse Rate 94 Respiratory 18 18 Rate Blood Pressure 123/63 (mmHg) O2 Sat by Pulse 93 Oximetry Oxygen Devices in Use Now: None Appearance: 67 yo M in nAD, AAOx3 Eyes: No Scleral Icterus, PERRLA Ears/Nose/Mouth/Throat: NL Teeth, Lips, Gums, Mucous Membranes Moist Neck: NL Appearance and Movements; NL JVP, Trachea Midline Respiratory: Symmetrical Chest Expansion and Respiratory Effort, - - crackles at b/l bases Cardiovascular: NL Sounds; No Murmurs; No JVD, RRR Abdominal: - - obese, soft, NT, BS+ Lymphatic: No Cervical Adenopathy Extremities: No Clubbing, Cyanosis, - - +2 pitting edema b/l ankles L>R. L ankle ROM OK , but pain on palpation, no erythema Skin: No Rash or Ulcers, No Nodules or Sclerosis Neurological: Alert and Oriented x 3, NL Muscle Strength and Tone Result Diagrams: 07/27/18 06:17 07/27/18 06:17 Additional Lab and Data: Laboratory Results - last 24 hr 07/25/18 07/25/18 07/25/18 08:05 09:45 12:04 WBC 7.1 RBC 3.63 L Hgb 8.0 L Hct 26 L MCV 72 L MCH 22 L MCHC 31 RDW 21 H Plt Count 189 MPV 8.2 Neut % (Auto) 72.3 Lymph % (Auto) 15.0 L [place] % (Auto) 8.4 H Eos % (Auto) 3.7 Baso % (Auto) 0.6 Absolute Neuts (auto) 5.1 Absolute Lymphs (auto) 1.1 Absolute Monos (auto) 0.6 Absolute Eos (auto) 0.3 Absolute Basos (auto) 0 Absolute Nucleated RBC 0 Nucleated RBC % 0.1 POC Glucose (mg/dL) 155 H 48 L 07/25/18 07/25/18 12:05 16:58 WBC RBC Hgb Hct MCV MCH MCHC RDW Plt Count MPV Neut % (Auto) Lymph % (Auto) [place] % (Auto) Eos % (Auto) Baso % (Auto) Absolute Neuts (auto) Absolute Lymphs (auto) Absolute Monos (auto) Absolute Eos (auto) Absolute Basos (auto) Absolute Nucleated RBC Nucleated RBC % POC Glucose (mg/dL) 149 H 150 H Microbiology and Other Data: Microbiology 07/21/18 20:00 Stool Stool Occult Blood (AUBREE) - Final Assess/Plan/Problems-Billing Assessment: Mr. Handley is a 67yo with PMH of Afib on Xarelto, CARON, DM2, GI bleed, GERD, HLD, and HTN who reportedly experiences occasionally bloody stools who presented to the ED with c/o SOB and was found to be anemic secondary to GI bleed. EGD showing gastric antral polyp. - Patient Problems (1) GI bleed Comment: - EGD demonstrated antral grastric polyp, s/p excision by Dr. Méndez 07/26/18. cont omeprazole. Advanced to soft diet - NSAID use likely a contributing factor - 3 total PRBC this admission. - Appreciate GI consult: hold Xarelto till f/u with Dr. Méndez in 1 week. - CHADS2-VASC score is 3 indicating a 3.2% risk of stroke per year and HAS-BLED score is 3 indicating a 5.8% risk of bleed; at this point the risk of bleed is greater than the risk of stroke and we will continue to hold xarelto till next week (2) Atrial flutter, paroxysmal Comment: - Echo shows EF 50-55%, normal LVF, and PFO; no changes since prior exam in February - Hold xarelto - Continue multaq, metoprolol - in NSR (3) Diabetes mellitus, type 2 Comment: - Hold metformin, trulicity, glimepiride - restarting Lantus at a low dose today - home Lantus is at 50U BID (4) GERD (gastroesophageal reflux disease) Comment: omeprazole (5) Hypertension Comment: - Normotensive - Hold irbesartan, - continue chlorthalidone - Continue metoprolol (6) Shortness of breath Comment: -today appears to have worsening edema and fluid overload after transfusions. will tx with a dose of Lasix 40 mg IV echo is unchanged (EF 50-55%). Suspect diastolic dysfunction. home chlorothiadone continued. Does not know his dry weight. (7) DVT prophylaxis Comment: - SCDs (8) Left ankle pain Comment: will obtain xRays and consulted Status and Disposition: Inpatient.
--- NOTE | 2018-07-27 15:25 | PN ---
Progress Note - Progress Note Date of Service: 07/27/18 SOAP: Subjective: [Orthopedic consult Patient reports onset of L ankle swelling yesterday. Not sure but doesn't think he sprained it. Reports history of occasional swelling like this in the past. Thinks it's attributable to arthritis, fluid intake. Some pain with WB, using cane.] Objective: [Moderate swelling of L ankle/foot. No erythema, skin intact. TTP lateral ankle ligaments and dorsum of foot. Good ROM DF/PF. PT pulse 2 +. No ligamentous laxity noted. Sensation intact to light touch, cap refill brisk. Calf soft, NT X-ray L ankle - negative for fx, arthritic changes noted] Assessment: [L ankle/foot swelling - secondary to arthritis/fluid retention ] Plan: [Ruben wrap WBAT LLE with cane Follow up with Dr. Ramos (already a pt of Dr. Ramos's]
[2018-07-27 16:07] VITALS: BP 139/53
--- NOTE | 2018-07-28 06:51 | DS ---
CC: Dr. Saladna; Dr. Macario; Dr. Cuevas; Dr. Méndez; Dr. Freeman* DISCHARGE SUMMARY: DATE OF ADMISSION: 07/21/18 DATE OF DISCHARGE: 07/27/18 PRIMARY CARE PROVIDER: Dr. Saldana. DISCHARGE DIAGNOSES: 1. Upper GI bleed, likely due to gastric polyp, status post upper endoscopy and gastric polyp removal by Dr. Méndez performed on 07/26/18. 2. Acute iron-deficiency anemia due to GI bleed as mentioned above, status post 3 units of packed red blood cells transfusion during the hospital stay. 3. Fluid overload secondary to transfusions. The patient was treated with a dose of diuretic on the day of discharge. 4. Bilateral leg edema due to above mentioned with left ankle pain due to likely chronic osteoarthritis. SECONDARY DIAGNOSES: 1. History of paroxysmal atrial flutter. The patient remained in normal sinus rhythm throughout the hospital stay. 2. Obstructive sleep apnea, on CPAP. 3. Diabetes type 2, insulin-dependent. 4. History of gastric polyps and rectal bleeding in the past. 5. Gastroesophageal reflux disease. 6. Hyperlipidemia. 7. Hypertension. MEDICATIONS AT DISCHARGE: Include: 1. Chlorthalidone 12.5 mg daily. 2. Multaq 400 mg b.i.d. 3. Trulicity 0.75 mg subcu every Wednesday. 4. Arabella 180 mg daily. 5. Glimepiride 8 mg daily. 6. Avapro 75 mg daily. 7. Metformin 1000 mg b.i.d. 8. Toprol-XL 50 mg b.i.d. 9. Multivitamin 1 tablet daily. 10. Insulin glargine 50 units subcutaneously twice a day as previously taken. 11. Omeprazole increased to 20 mg b.i.d. The patient was recommended to discontinue his Xarelto for the time being. LABORATORY DATA AND STUDIES PERFORMED DURING THE HOSPITAL STAY: Included on , sodium of 131, potassium 4.0, chloride 103, carbon dioxide 24, BUN 15, creatinine 1.03. White blood cell count of 6.4, hemoglobin of 8.0, hematocrit of 26, MCV of 71, and platelets of 186. Chest x-ray obtained at admission, impression: "Increased parenchymal markings in the acute setting could be due to pulmonary edema, pneumonitis, or multifocal pneumonia." Left ankle x-ray, impression: "Soft tissue swelling. No fracture identified." Transthoracic echocardiogram obtained on 07/21/18, conclusions: "Left ventricular chamber size normal. Mild concentric LVH, EF of 50% to 55%. The left ventricular systolic function is at the lower limits of normal. The left atrium is mildly dilated. The right ventricular chamber size and systolic function are within normal limits. No significant valvular abnormalities noted. Unable to estimate the right ventricular systolic pressures. DEFINITY was used to optimize the study." PROCEDURES DURING THE HOSPITAL STAY: Included upper endoscopy performed by Dr. Freeman on 07/23/18, impression: 1. "Esophagus with extrinsic compression. It has been noted in the past. Could consider imaging with either CT chest or endoscopic ultrasound of the lesion for definitive diagnosis. It does not appear to be causing clinically significant esophageal symptoms per the patient. 2. Approximately 1 cm gastric antral polyp with a white cap. It does not appear to have recently been bleeding. Although I suspect there could possibly be a source of chronic blood loss in the setting of anticoagulation. On review of endoscopy pictures from 2012, this appears to be a recurrence of the polyp that was previously resected on 2 occasions. Path from that polyp was hyperplastic. Biopsies were not obtained at this time given the same location and appearance as prior endoscopies. Polyp not removed today, as the patient has not been off his anticoagulation for the appropriate amount of time. Otherwise no abnormal findings on this study." Procedure report of upper endoscopy performed on 07/26/[address] 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 Gastric cardia polyp low risk currently. Gastric greater curvature polyp resected after Eleview deployment and now clips. Histology pending, which will determine the followup plan. Rectosigmoid polyp removed. Otherwise, normal colonoscopy to the cecum. Severe iron-deficiency anemia. When seen at the followup, repeat Hemoccults will be done and then will be followed sequentially before considering Xarelto again, probably in a month to 6 weeks." HOSPITALIZATION COURSE: Kareem Handley is a 67-year-old male with a history of obesity with a BMI of 43, as well as hypertension, dyslipidemia, diabetes, paroxysmal atrial fibrillation/flutter, who presented to the hospital complaining of shortness of breath. He was noted to have hemoglobin of 7.0 at admission. He required a total of 3 units of packed red blood cells transfusion. He was seen by Dr. Freeman initially in Gastroenterology consultation and was noted to have large, close to 2 cm gastric polyp. Unfortunately, due to the patient being on Xarelto, at that point that was not excised and the patient was prepared for endoscopy and colonoscopy at the same time performed by Dr. Méndez 3 days later on 07/26/18. At that time, the gastric polyp was excised. Another polyp noted during the colonoscopy in the rectosigmoid was biopsied and the pathology is pending. At this point, the patient was recommended to be on proton pump inhibitor twice a day. It is recommended for the patient to follow up with Dr. Méndez in approximately 1 to 2 weeks. For the time being, Xarelto was going to be on hold. Of note, the patient has had no recurrence of atrial fibrillation/flutter during the hospital stay while he was on telemetry monitored bed. On the day of discharge, he was noted to have at least moderate bilateral lower extremity swelling, likely due to fluid resuscitation and transfusions. His left ankle was painful and tender to palpation. He had problems with walking. The patient stated initially that it was due to his chronic osteoarthritis, although he thought that maybe he sprained it. The orthopedic service saw the patient in consultation and noted that the patient has chronic osteoarthritic changes exacerbated by his fluid retention at this point. X-rays of the ankle were obtained and no abnormalities were noted. The patient was recommended to ambulate with a cane and weightbear as tolerated and follow up with Dr. Ramos as an outpatient. The patient is going to be discharged home with recommendations to follow up with his primary care provider in 4 to [address] Méndez in approximately 1 week, as well as Dr. Ramos as needed. For physical exam at discharge, please see daily progress notes. [id number]/[facility] #: [id number] [facility] INSANEMehnaz
== END 2018-07-27 18:50 | disposition home or self-care (01) | DRG 394 ==
LOC: ED 17:45 → MEDTELE 20:52
PROVIDERS: ADMIT Pediatrics; ATTEND Internal Medicine
PROC: 0DJ08ZZ Inspection of Upper Intestinal Tract, Via Natural or Artificial Opening Endoscopic (ICD-10-PCS; 2018-07-22)
PROC: 30233N1 Transfusion of Nonautologous Red Blood Cells into Peripheral Vein, Percutaneous Approach (ICD-10-PCS; principal; 2018-07-23)
PROC: 0DB68ZZ Excision of Stomach, Via Natural or Artificial Opening Endoscopic (ICD-10-PCS; 2018-07-26)
PROC: 0DBN8ZZ Excision of Sigmoid Colon, Via Natural or Artificial Opening Endoscopic (ICD-10-PCS; 2018-07-26)
PROC: 0W3P8ZZ Control Bleeding in Gastrointestinal Tract, Via Natural or Artificial Opening Endoscopic (ICD-10-PCS; 2018-07-26)
PROC: 0W3P8ZZ Control Bleeding in Gastrointestinal Tract, Via Natural or Artificial Opening Endoscopic (ICD-10-PCS; 2018-07-26)
DX: K31.7 Polyp of stomach and duodenum (principal); D62 Acute posthemorrhagic anemia; K92.2 Gastrointestinal hemorrhage, unspecified; Z68.41 Body mass index [BMI] 40.0-44.9, adult; Q21.1 Atrial septal defect; K63.5 Polyp of colon; E11.9 Type 2 diabetes mellitus without complications; I10 Essential (primary) hypertension; E78.5 Hyperlipidemia, unspecified; I48.91 Unspecified atrial fibrillation; K21.9 Gastro-esophageal reflux disease without esophagitis; R40.2362 Coma scale, best motor response, obeys commands, at arrival to emergency department; R40.2142 Coma scale, eyes open, spontaneous, at arrival to emergency department; K22.2 Esophageal obstruction; E87.71 Transfusion associated circulatory overload; M19.072 Primary osteoarthritis, left ankle and foot; R40.2252 Coma scale, best verbal response, oriented, at arrival to emergency department; G47.33 Obstructive sleep apnea (adult) (pediatric); D17.79 Benign lipomatous neoplasm of other sites; I48.0 Paroxysmal atrial fibrillation; E66.01 Morbid (severe) obesity due to excess calories; Z86.010 Personal history of colon polyps; Z87.891 Personal history of nicotine dependence; Z81.8 Family history of other mental and behavioral disorders; Z91.041 Radiographic dye allergy status; Z79.4 Long term (current) use of insulin
CPT/HCPCS: 36415; 71046; 80048; 81003; 82270; 82728; 83540; 83550; 83735; 83880; 84484; 85014; 85018; 85025; 85610; 86140; 86850; 86900; 86901; 86922; 93005; 93306; 94660; 99156; 99157; 99284; A9270-GY; C8929; J1885; J1940; J2250; J3010; J3420; J3475; P9040

== ENCOUNTER 2019-07-31 17:10 | Inpatient (IN) | payer MEDICARE ==
--- NOTE | 2019-07-31 17:34 | ED ---
Shortness of Breath - HPI Summary HPI Summary: This patient is a 68 year old male presenting to [facility] with a chief complaint of low hemoglobin and SOB. He states his Hgb at his PCP was 5.2 L in routine blood work done this morning and that he needs a blood transfusion. He states the same thing happened about a year ago and was SOB at that time. They discovered that the source of this was a polyp. He states he has had several endoscopies and colonoscopies over the past year to manage this. He states the SOB is upon exertion. The patient states his stools have been darker than usual. He takes Xaralto for Atrial fibrillation. Pt denies any fever, chills, erythema of eyes, sore throat, CP, cough, abdominal pain, N/V, dysuria, hematuria, myalgia, edema, rash, or dizziness. - History of Current Complaint Chief Complaint: EDShortnessOfBreath Time Seen by Provider: 07/31/19 17:18 Hx Obtained From: Patient Onset/Duration: Lasting Hours - Allergy/Home Medications Allergies/Adverse Reactions: Allergies Allergy/AdvReac Type Severity Reaction Status Date / Time amlodipine Allergy lower Verified 07/31/19 17:23 extremity edema iodine AdvReac Mild warm Verified 07/31/19 17:23 feeling all over contrast dye AdvReac Mild warm Uncoded 07/31/19 17:23 feeling all over Home Medications: Home Medications Glimepiride (NF) 8 mg PO DAILY 07/31/19 [History Confirmed 07/31/19] Irbesartan (NF) [Avapro (NF)] 150 mg PO DAILY 07/31/19 [History Confirmed ] PMH/Surg Hx/FS Hx/Imm Hx Endocrine/Hematology History: Reports: Hx Diabetes, Hx Anemia Cardiovascular History: Reports: Hx Hypercholesterolemia, Hx Hypertension Respiratory History: Reports: Hx Sleep Apnea, Other Respiratory Problems/ Disorders - ex smoker GI History: Reports: Hx Gastroesophageal Reflux Disease Musculoskeletal History: Reports: Other Musculoskeletal History - knee pain Sensory History: Reports: Hx Contacts or Glasses Denies: Hx Hearing Aid Opthamlomology History: Reports: Hx Contacts or Glasses - Surgical History Surgery Procedure, Year, and Place: 1961 [place]ils. [place] [facility] [place]. [place] [facility] [place]. 1979 [place] herniated disc. [place] [facility] [place]. various dental surgeries Infectious Disease History: No Infectious Disease History: Reports: Hx Shingles Denies: Traveled Outside the [place] in Last 30 Days - Family History Known Family History: Negative: Seizure Disorder - Social History Alcohol Use: None Substance Use Type: Reports: None Smoking Status (MU): Former Smoker Review of Systems Positive: Other - Low Hgb. Negative: Fever, Chills Negative: Erythema Negative: Sore Throat Negative: Chest Pain Positive: Shortness Of Breath. Negative: Cough Positive: Other - Darker stool . Negative: Abdominal Pain, Vomiting, Nausea Negative: dysuria, hematuria Negative: Myalgia, Edema Negative: Rash Neurological: Other - Neg: Dizziness All Other Systems Reviewed And Are Negative: No Physical Exam - Summary Physical Exam Summary: Constitutional: Well-developed, Well-nourished, Alert. (-) Distressed Skin: Warm, Dry HENT: Normocephalic; Atraumatic Eyes: Conjunctiva normal Neck: Musculoskeletal ROM normal neck. (-) JVD, (-) Stridor, (-) Tracheal deviation Cardio: Rhythm regular, rate normal, Heart sounds normal; Intact distal pulses; The pedal pulses are 2+ and symmetric. Radial pulses are 2+ and symmetric. (-) Murmur Pulmonary/Chest wall: Effort normal. (-) Respiratory distress, (-) Wheezes, (-) Rales Abd: Soft, (-) tenderness, (-) Distension, (-) Guarding, (-) Rebound Musculoskeletal: (-) Edema Lymph: (-) Cervical adenopathy Neuro: Alert, Oriented x3 Psych: Mood and affect Normal Rectal: [employer] Eleazar. No masses noted, no visible blood. Green stool. Triage Information Reviewed: Yes Vital Signs On Initial Exam: Initial Vitals Temp Pulse Resp BP Pulse Ox 98.6 F 109 20 129/55 93 07/31/19 17:17 07/31/19 17:17 07/31/19 17:17 07/31/19 17:17 07/31/19 17:17 Vital Signs Reviewed: Yes Procedures - Sedation Patient Received Moderate/Deep Sedation with Procedure: No Diagnostics - Vital Signs Vital Signs Temp Pulse Resp BP Pulse Ox 07/31/19 17:17 98.6 F 109 20 129/55 93 - Laboratory Result Diagrams: 07/31/19 17:35 07/31/19 17:35 Lab Statement: Any lab studies that have been ordered have been reviewed, and results considered in the medical decision making process. - EKG 1730 Cardiac Rate: NL - 100 BPM EKG Rhythm: Sinus Rhythm Summary of EKG Findings: No STEMI. ST depressions V3-V6. ED Physician has reviewed and interpreted this EKG. Course/Dx - Course Course Of Treatment: This patient is a 68 year old male presenting to [facility] with a chief complaint of low hemoglobin and SOB. Stool occult blood was positive. Labs reveal RBC 2.20 L, Hct 18 L, MCH 24 L, MCHC 30 L, RDW 18 H, Chloride 113 H, CO2 18 :. Creatinine 1.25 H, Glucose 111 H, Calcium 8.1 L, Troponin I 0.03 H, Total Protein 6.0 L, Absolute Lymphs 0.[address] Freeman who stated will not stop Xaralto at this time due to the slow course of process. The patient was administered Protonix in the ED. Dr. Villagomez, Hospitalist, accepted the patient for admission. Plan for admission was discussed with the patient and she was agreeable with this plan. - Diagnoses Provider Diagnoses: Upper GI bleed - Physician Notifications Discussed Care of Patient With: Belen Freeman - GI Time Discussed With Above Provider: 18:34 - Will not stop Xarelto at this tie. - Critical Care Time Critical Care Time: 30-74 min - 35 mins Discharge ED - Sign-Out/Discharge Documenting (check all that apply): Patient Departure - Admission - Discharge Plan Condition: Stable Disposition: ADMITTED TO [facility] Referrals: Rell Saldana MD [Primary Care Provider] - - Attestation Statements Document Initiated by Scribe: Yes Documenting Scribe: Morgan Scott Provider For Whom Scribe is Documenting (Include Credential): Gianluca Kiser MD Scribe Attestation: Morgan Sanchez, scribed for Gianluca Kiser MD on 07/31/19 at 1840. Status of Scribe Document: Ready
[2019-07-31 17:53] LABS: Hematocrit 18 % (42-52); Hemoglobin 5.3 g/dL (14.0-18.0); Mean Corpuscular HGB Conc 30 g/dL (31-36); Mean Corpuscular Hemoglobin 24 pg (27-31); Mean Corpuscular Volume 80 fL (80-94); Mean Platelet Volume 7.8 fL (7.4-10.4); Platelet Count 191 10^3/uL (150-450); Red Cell Distribution Width 18 % (10-15)
[2019-07-31 17:55] LABS: Albumin 3.7 g/dL (3.2-5.2); Calcium 8.1 mg/dL (8.6-10.3); Potassium 4.6 mmol/L (3.5-5.0); Total Bilirubin 0.5 mg/dL (0.2-1.0)
[2019-07-31 18:01] LABS: Albumin/Globulin Ratio 1.6 (1-3); BUN/Creatinine Ratio 19.2 (8-20); EGFR African American 69.3 (>60); EGFR Non-African American 57.3 (>60); Globulin 2.3 g/dL (2-4)
[2019-07-31 18:04] LABS: Troponin I 0.03 ng/mL (<0.03)
[2019-07-31] MEDS ORDERED: Pantoprazole* 80 mg IN NS 80 MG/250 ML BAG IV ONE (18:14)
[2019-07-31] MEDS ORDERED: Pantoprazole IV* 40 MG IV ONE (18:14)
[2019-07-31 18:17] LABS: ABS Eosinophils 0.1 10^3/ul (0-0.6); ABS Lymphocytes 0.8 10^3/ul (1.0-4.8); ABS Monocytes 0.3 10^3/ul (0-0.8); ABS Neutrophils 3.7 10^3/ul (1.5-7.7); Lymphocyte % 15.4 %; Nucleated Red Blood Cells % 0.3
[2019-07-31 18:38] LABS: TSH (Thyroid Stimulating Horm) 4.63 mcIU/mL (0.34-5.60)
[2019-07-31] MEDS ORDERED: Morphine INJ* 2 MG/ML 1 ML SYRINGE (TWO MG - NEW SYRINGE VERSION) IV PRN (18:48)
[2019-07-31] MEDS ORDERED: Dextrose 50% VIAL 50 ml IV PUSH PRN (18:53)
[2019-07-31] MEDS ORDERED: NS 0.9% 1000 ML** 1,000 ML IV SCH (19:00)
[2019-07-31] MEDS ORDERED: Furosemide IV* 10 MG/ML VIAL (40 MG) IV ONE (19:07)
--- NOTE | 2019-07-31 20:57 | HP ---
CC: Dr. Saldana; Dr. Pierre; Dr. Freeman; Dr. Macario * HISTORY AND PHYSICAL: DATE OF ADMISSION: 07/31/19 PRIMARY CARE PROVIDER: Dr. Saldana. CHIEF COMPLAINT: Shortness of breath. HISTORY OF PRESENT ILLNESS: Kareem Handley is a 68-year-old male with history of recurrent GI bleed and chronic GI bleed from his gastric polyps, who was admitted for that almost exactly a year ago. The patient stated that for the past year, he had multiple endoscopies with Dr. Pierre who noted that the patient had chronic low level GI bleed. His last endoscopy was in April 2019. The patient also received iron infusion after which she felt very well. The patient stated that for the past week, he basically had no energy. He developed dyspnea with exertion and he started retaining more fluid in his legs that are chronically swollen. He came into the ED for evaluation and it was noted that his hemoglobin is 5.3. He also stated that his stool was black mixed with green and it is always like that since he uses iron supplements. He is going to be admitted to the hospital with the diagnosis of GI bleed. PAST MEDICAL HISTORY: 1. Obstructive sleep apnea, on CPAP. 2. Paroxysmal atrial fibrillation, on anticoagulation, followed by Dr. Macario. 3. Diabetes type 2. 4. History of gastric polyps with bleeding in the past. 5. Gastroesophageal reflux disease. 6. Dyslipidemia. 7. Hypertension. MEDICATIONS AT HOME: Include: 1. Insulin Lantus 50 units twice a day. 2. Omeprazole 20 mg b.i.d. 3. Ferrous sulfate 325 mg b.i.d. 4. Vitamin B12 1000 mcg daily. 5. Arabella 180 mg daily. 6. Multivitamin 1 tablet daily. 7. Metoprolol succinate 50 mg b.i.d. 8. Glimepiride 80 mg daily. 9. Atorvastatin 20 mg every other day. 10. Xarelto 20 mg daily. 11. Avapro 150 mg daily. 12. Multaq 400 mg b.i.d. 13. Trulicity 0.75 mg subcutaneously weekly. 14. Insulin glargine 50 units b.i.d. 15. Metformin 1000 mg b.i.d. ALLERGIES: AMLODIPINE, IODINE, CONTRAST DYE. FAMILY HISTORY: Mother of old age. Father from suicide. SOCIAL HISTORY: The patient lives alone. His surrogate is his sister, Tia. He quit smoking 20 years ago and he has history of smoking 2 packs per day for up to 30 years. He denies any alcohol or drug use. He works at [employer] and currently has a break for the winter. REVIEW OF SYSTEMS: Please see history of present illness. All the remaining 12 systems were reviewed with the patient and were otherwise negative. PHYSICAL EXAMINATION GENERAL: The patient is a pleasant 68-year-old obese male, who is in no acute distress. Alert, awake, oriented x3. VITAL SIGNS: Blood pressure of 142/62, heart rate of 100 and regular, respiratory rate 20, oxygen saturation 96% on room air, temperature of 98.6. HEENT: Head: Atraumatic, normocephalic. Eyes: Pupils equal, reactive to light and accommodation. Conjunctival pallor noted. NECK: Supple. No JVD. No bruits bilaterally. RESPIRATORY: Clear to auscultation bilaterally. CARDIOVASCULAR: Regular rate and rhythm. No murmur. ABDOMEN: Soft, protuberant, nontender. Bowel sounds are present in all 4 quadrants. EXTREMITIES: There is +1 pitting pedal edema bilaterally. Pulses are +2 bilaterally. There is no clubbing, no cyanosis. NEURO EVALUATION: Speech is clear. Cranial nerves II through XII grossly intact. Motor strength is 5/5 bilaterally. PSYCHIATRIC EVALUATION: Oriented x3 with no evidence of anxiety, depression. SKIN: On evaluation of the skin, the patient has venous stasis discoloration of bilateral distal lower extremities. Otherwise notable pallor of the remaining skin. DIAGNOSTIC STUDIES/LAB DATA: White blood cell count of 4.0, hemoglobin of 5.3 , hematocrit of 18, and platelets of 191,000. Sodium 141, potassium 4.6, chloride 113, carbon dioxide 18, BUN 24, creatinine 1.25. Liver function test unremarkable. Troponin of 0.03. TSH of 4.6. The patient's EKG showed normal sinus rhythm with occasional PVC with heart rate of 100 beats per minute with ST depressions in leads V4 and V6. Comparing with EKG from July 2018, the ST depressions appear maybe slightly more pronounced than in 2018 today. ASSESSMENT AND PLAN: 1. Symptomatic anemia due to GI bleed, presumably upper. The patient's stool Hemoccult is positive for blood on admission. He is going to be transfused 2 units of packed red blood cells and due to his peripheral edema, he is going to be administered 40 mg of Lasix IV in between his units of blood. We will continue checking his H and H every [address] Freeman was already notified about the patient admission and one of the gastroenterologists will follow up in the morning for upper endoscopy. For the time being, the patient is going to be placed on Protoxin drip. 2. The patient has a history of atrial fibrillation, currently in sinus rhythm , well controlled on Multaq and metoprolol which is going to be continued. 3. For his obstructive sleep apnea. CPAP is going to be continued. 4. For diabetes, the patient is going to be placed on insulin sliding scale and his insulin Lantus as well as oral diabetic agents are going to be held. 5. For DVT prophylaxis, anticoagulants are contraindicated. The patient is going to be placed on SCDs. Xarelto is going to be held. Due to the patient is being hemodynamically stable and having what appears to be rather acute or chronic bleed, Xarelto was not going to be reversed and does not appear to be necessary. 6. The patient's code status is full. His surrogate is his sister. TIME SPENT: Approximately 65 minutes were spent on admission of this patient, more than half that time was spent [id number] with the patient during the interview and physical exam. [id number]/[facility] #: [id number]
[2019-07-31] MEDS: NS 0.9% 1000 ML** 1,000 ML IV SCH (21:26)
[2019-07-31] MEDS: Metoprolol Succinate XL TAB* 50 MG PO SCH (21:57)
[2019-07-31] MEDS: Dronedarone TAB* 400 MG PO SCH (21:58)
[2019-07-31 22:24] LABS: Urine Appearance Clear; Urine Bilirubin Negative (Negative); Urine Blood Negative (Negative); Urine Color Yellow; Urine Glucose Negative (Negative); Urine Ketones Negative (Negative); Urine Nitrite Negative (Negative); Urine Protein Negative (Negative); Urine Specific Gravity 1.011 (1.010-1.030); Urine Urobilinogen Negative (Negative)
[2019-08-01] MEDS: Insulin LISPRO* 1 UNITS UNIT SUBCUT SCH ×5 (00:25→23:59)
[2019-08-01] MEDS: NS 0.9% 1000 ML** 1,000 ML IV SCH (01:16)
[2019-08-01 02:34] LABS: Hematocrit 23 % (42-52); Hemoglobin 7.1 g/dL (14.0-18.0)
[2019-08-01 05:09] LABS: ABS Eosinophils 0.1 10^3/ul (0-0.6); ABS Monocytes 0.5 10^3/ul (0-0.8); ABS Neutrophils 3.9 10^3/ul (1.5-7.7); Eosinophil % 2.3 %; Hematocrit 21 % (42-52); Hemoglobin 6.6 g/dL (14.0-18.0); Lymphocyte % 17.7 %; Mean Corpuscular HGB Conc 31 g/dL (31-36); Mean Corpuscular Hemoglobin 25 pg (27-31); Mean Corpuscular Volume 79 fL (80-94); Mean Platelet Volume 7.5 fL (7.4-10.4); Nucleated Red Blood Cells % 0.2; Platelet Count 179 10^3/uL (150-450); Red Blood Count 2.66 10^6 /uL (4.18-5.48); Red Cell Distribution Width 18 % (10-15); White Blood Count 5.6 10^3/uL (3.5-10.8)
[2019-08-01] MEDS: Pantoprazole* 80 mg IN NS 80 MG/250 ML BAG IV SCH ×2 (05:12→17:02)
[2019-08-01 05:27] LABS: Calcium 8.6 mg/dL (8.6-10.3); EGFR African American 75.5 (>60); EGFR Non-African American 62.4 (>60); Potassium 4.6 mmol/L (3.5-5.0)
[2019-08-01] MEDS: Dronedarone TAB* 400 MG PO SCH ×2 (08:33→20:20)
[2019-08-01] MEDS: Metoprolol Succinate XL TAB* 50 MG PO SCH ×2 (08:33→20:20)
[2019-08-01] MEDS: Acetaminophen TAB* 325 MG PO PRN (09:42)
[2019-08-01 12:13] LABS: Hematocrit 24 % (42-52); Hemoglobin 7.3 g/dL (14.0-18.0)
--- NOTE | 2019-08-01 14:31 | PN ---
Subjective Date of Service: 08/01/19 Interval History: HOSPITALIST PROGRESS NOTE Patient seen and examined at bedside. Care reviewed and d/w Myesha Rene RN. He offers no new complaints today. Denies abdominal pain, N/V. No BM so far. Family History: Unchanged from Admission Social History: Unchanged from Admission Past Medical History: Unchanged from Admission Objective Active Medications: Acetaminophen (Tylenol Tab*) 650 mg PO Q4H PRN PRN Reason: PAIN-MILD/TEMP >/= 100.4 Last Admin: 08/01/19 09:42 Dose: 650 mg Dextrose (Dextrose 50% Vial 50 Ml*) 25 ml IV PUSH .FOR FS < 60 - SS PRN PRN Reason: FS < 60 Dronedarone (Multaq Tab*) 400 mg PO BID [facility] Last Admin: 08/01/19 08:33 Dose: Not Given Pantoprazole Sodium (Protonix Iv Bag*) 80 mg in 250 mls @ 25 mls/hr IV Q10H [facility] Last Admin: 08/01/19 05:12 Dose: 25 mls/hr Sodium Chloride (Ns 0.9% 1000 Ml) 1,000 mls @ 50 mls/hr IV PER RATE [facility] Last Admin: 08/01/19 01:16 Dose: 50 mls/hr Insulin Human Lispro (Humalog*) 0 units SUBCUT Q6HR [facility]; Protocol Last Admin: 08/01/19 11:07 Dose: Not Given Metoprolol Succinate (Toprol Xl Tab*) 50 mg PO BID [facility] Last Admin: 08/01/19 08:33 Dose: Not Given Morphine Sulfate (Morphine Inj (Syringe))*) 1 mg IV Q4H PRN PRN Reason: PAIN - SEVERE Vital Signs - 8 hr 08/01/19 08/01/19 08/01/19 07:15 07:50 11:15 Temperature 98.4 F 97.8 F Pulse Rate 91 88 Respiratory 20 18 20 Rate Blood Pressure 155/61 151/60 (mmHg) O2 Sat by Pulse 96 97 Oximetry Oxygen Devices in Use Now: None Appearance: Pleasant morbid obese gentleman lying in bed in NAD. Eyes: No Scleral Icterus Ears/Nose/Mouth/Throat: Mucous Membranes Moist - and pale Neck: Trachea Midline Respiratory: Symmetrical Chest Expansion and Respiratory Effort, Clear to Auscultation Cardiovascular: NL Sounds; No Murmurs; No JVD, RRR Abdominal: NL Sounds; No Tenderness; No Distention - morbid obese Neurological: Alert and Oriented x 3, NL Muscle Strength and Tone Result Diagrams: 08/01/19 11:51 08/01/19 05:02 Assess/Plan/Problems-Billing Assessment: Mr Handley is a 68yo M with PMH of morbid obesity with BMI 46, CARON on CPAP, PAF on AC, type 2 DM, GERD, HLD, HTN, gastric polyps (last EGD in April 2019 with no signs of active bleeding), who presented to ED with c/o dyspnea, found to have symptomatic anemia, likely secondary to recurrent GI bleed. - Patient Problems (1) Symptomatic anemia Comment: - Most likely ERICH in the setting of GI bleed (and Xarelto use). - S/p 3 PRBCs - continue to monitor H/H. (2) GI bleed Comment: - Suspect Upper GI bleed - has known h/o gastric polyp. - Awaiting GI consult. - CHADS2-VASC score is 3 indicating a 3.2% risk of stroke per year and HAS-BLED score is 3 indicating a 3.7% risk of bleed - Xarelto on hold for now. (3) Atrial flutter, paroxysmal Comment: - Currently in NSR. - Continue Multaq and Metoprolol. (4) Diabetes mellitus, type 2 Comment: - Metformin, Trulicity, Glimepiride, Lantus on hold. - Continue Lispro SS while NPO. - Will partially resume meds when diet is reintrodouced. (5) DVT prophylaxis Comment: - Pharmacological prophylaxis contraindicated in the setting of probable GI bleed. - SCDs. (6) Full code status Status and Disposition: Inpatient.
[2019-08-01] MEDS ORDERED: fentaNYL* 50 MCG/ML 2 ML VIAL (100 MCG VIAL) ONE (14:55)
[2019-08-01] MEDS ORDERED: Midazolam* 1 MG/ML 10 ML VIAL (10 MG) ONE (14:55)
[2019-08-01 20:03] LABS: Hematocrit 24 % (42-52); Hemoglobin 7.3 g/dL (14.0-18.0)
--- NOTE | 2019-08-01 22:39 | PRO ---
DATE: 08/01/19 - ROOM #442 REFERRING PHYSICIAN: Rell Saldana.* PROCEDURE: Upper gastrointestinal endoscopy through distal duodenum. INDICATION: This 68-year-old man had been feeling worse in a general sense with shortness of breath over a couple of weeks though no gastrointestinal changes and came in for previously scheduled blood tests finding hemoglobin of 5.6. He was directed to the emergency room and admitted, Xarelto held, PPI started as a drip, and he was transfused 2 units and later a third. He had no clinical GI bleeding. He became hungry. He has had numerous prior upper endoscopies - see separate consult. Before the procedure, he was clinically stable. ENDOSCOPIST: Dr. Méndez. MEDICATIONS: Midazolam 6, fentanyl 75. FINDINGS: He is a morbidly obese man with profound centripetal pattern. He was positioned left side down and moderate sedation induced with sequential doses of medication and tolerated well. EGD: Larynx - not seen. Esophagus - easily entered. The mucosa was normal in the upper, mid, and lower esophagus. There is an extrinsic smooth compression as noted before. It was completely the same and soft. Stomach - normal mucosa in the cardia and fundus. The body distal greater curvature aspect has little bit of a scar, c/w where a polyp had been removed with cautery several times. In the antrum, there were a couple of small polyps. These were left given his having a Xarelto under 48 hours. They were not bleeding. They were small, benign appearing, one with a little bit of a white cap at 4 o'clock orientation in midantrum. Duodenum - the pylorus, bulb, and second through fourth portions appeared normal. There was no blood staining in the duodenum. No abnormality whatsoever. IMPRESSION: 1. Gastric antral polyps - appeared low risk; however, the influence of Xarelto cannot be known for sure. 2. Extrinsic compression in the esophagus - stable, smooth, and benign. 3. Recurring gastrointestinal bleeding - Xarelto will be held for the moment and burden / risk of atrial fib reassessed. He is not able to feel his own atrial fibrillation, but has not been known to be in it since the original episode, January 2018; entire gastro testing sequence to be reviewed [id number]/[facility] #: [id number] [facility]
[2019-08-02] MEDS: NS 0.9% 1000 ML** 1,000 ML IV SCH ×2 (00:40→23:24)
[2019-08-02] MEDS: Insulin LISPRO* 1 UNITS UNIT SUBCUT SCH ×4 (06:12→23:27)
[2019-08-02 06:36] LABS: Hematocrit 22 % (42-52); Hemoglobin 6.9 g/dL (14.0-18.0)
[2019-08-02] MEDS ORDERED: Iron Sucrose* 200 MG in NS 0.9% 100 ML* 100 ML IVPB ONE (08:00)
[2019-08-02] MEDS: Dronedarone TAB* 400 MG PO SCH ×2 (08:01→20:56)
[2019-08-02] MEDS: Metoprolol Succinate XL TAB* 50 MG PO SCH ×2 (08:01→20:56)
[2019-08-02] MEDS: Pantoprazole TAB * 40 MG TAB PO SCH (08:01)
[2019-08-02 10:31] LABS: Total Iron Binding Capacity 379 mcg/dL (250-450); Transferrin 271 mg/dL (203-362)
[2019-08-02 10:34] LABS: % Iron Saturation 5 % (15-55); Iron < 20 ug/dL (50-212)
[2019-08-02 11:01] LABS: Ferritin 12.3 ng/mL (24-336)
[2019-08-02 11:03] LABS: Folate > 20.00 ng/mL (>3.99)
--- NOTE | 2019-08-02 15:53 | PN ---
Subjective Date of Service: 08/02/19 Interval History: HOSPITALIST PROGRESS NOTE Patient seen and examined at bedside. Care reviewed and d/w Myesha Rene RN. He offers no new complaints today. Tolerating diet well with no N/V. MENA still present, but less intense. Family History: Unchanged from Admission Social History: Unchanged from Admission Past Medical History: Unchanged from Admission Objective Active Medications: Acetaminophen (Tylenol Tab*) 650 mg PO Q4H PRN PRN Reason: PAIN-MILD/TEMP >/= 100.4 Last Admin: 08/01/19 09:42 Dose: 650 mg Dextrose (Dextrose 50% Vial 50 Ml*) 25 ml IV PUSH .FOR FS < 60 - SS PRN PRN Reason: FS < 60 Dronedarone (Multaq Tab*) 400 mg PO BID [facility] Last Admin: 08/02/19 08:01 Dose: 400 mg Sodium Chloride (Ns 0.9% 1000 Ml) 1,000 mls @ 50 mls/hr IV PER RATE [facility] Last Admin: 08/02/19 00:40 Dose: 50 mls/hr Insulin Human Lispro (Humalog*) 0 units SUBCUT Q6HR [facility]; Protocol Last Admin: 08/02/19 12:50 Dose: 1 unit Metoprolol Succinate (Toprol Xl Tab*) 50 mg PO BID [facility] [place] Last Admin: 08/02/19 08:01 Dose: 50 mg Morphine Sulfate (Morphine Inj (Syringe))*) 1 mg IV Q4H PRN PRN Reason: PAIN - SEVERE Pantoprazole Sodium (Protonix Tab*) 40 mg PO DAILY [facility] Last Admin: 08/02/19 08:01 Dose: 40 mg Vital Signs - 8 hr 08/02/19 08/02/19 08:00 15:15 Temperature 98.0 F Pulse Rate 83 Respiratory 18 20 Rate Blood Pressure 121/54 (mmHg) O2 Sat by Pulse 97 Oximetry Oxygen Devices in Use Now: None Appearance: Pleasant morbid obese gentleman sitting up in bed in NAD. Eyes: No Scleral Icterus Ears/Nose/Mouth/Throat: Mucous Membranes Moist Neck: Trachea Midline Respiratory: Symmetrical Chest Expansion and Respiratory Effort, Clear to Auscultation Cardiovascular: RRR - Normal S1 and S2 Extremities: No Edema Neurological: Alert and Oriented x 3, NL Muscle Strength and Tone Result Diagrams: 08/02/19 06:07 08/01/19 05:02 Assess/Plan/Problems-Billing Assessment: Mr Handley is a 68yo M with PMH of morbid obesity with BMI 46, CARON on CPAP, PAF on AC, type 2 DM, GERD, HLD, HTN, gastric polyps (last EGD in April 2019 with no signs of active bleeding), who presented to ED with c/o dyspnea, found to have symptomatic anemia, likely secondary to recurrent GI bleed. - Patient Problems (1) Symptomatic anemia Comment: - Most likely ERICH in the setting of GI bleed (and Xarelto use). - S/p 4 PRBCs so far - continue to monitor H/H. (2) GI bleed Comment: - EGD did not show an acute source of bleeding. - GI input appreciated - recommended holding Xarelto and assess Afib burden as outpatient. - CHADS2-VASC score is 3 indicating a 3.2% risk of stroke per year and HAS-BLED score is 3 indicating a 3.7% risk of bleed. (3) Atrial flutter, paroxysmal Comment: - Currently in NSR. - Continue Multaq and Metoprolol. (4) Diabetes mellitus, type 2 Comment: - Metformin, Trulicity, Glimepiride, Lantus on hold. - Continue Lispro SS. (5) DVT prophylaxis Comment: - Pharmacological prophylaxis contraindicated in the setting of probable GI bleed. - SCDs. (6) Full code status Status and Disposition: Inpatient. Anticipate d/c in AM if H/H remains stable.
[2019-08-02 20:44] LABS: Hematocrit 25 % (42-52); Hemoglobin 7.8 g/dL (14.0-18.0)
[2019-08-03] MEDS: Insulin LISPRO* 1 UNITS UNIT SUBCUT SCH ×2 (06:11→12:11)
[2019-08-03 06:59] LABS: Hematocrit 24 % (42-52); Hemoglobin 7.6 g/dL (14.0-18.0)
--- NOTE | 2019-08-03 07:54 | PN ---
Subjective Date of Service: 08/03/19 Interval History: HOSPITALIST PROGRESS NOTE Patient seen and examined at bedside. Care reviewed and d/w Family History: Unchanged from Admission Social History: Unchanged from Admission Past Medical History: Unchanged from Admission Objective Active Medications: Acetaminophen (Tylenol Tab*) 650 mg PO Q4H PRN PRN Reason: PAIN-MILD/TEMP >/= 100.4 Last Admin: 08/01/19 09:42 Dose: 650 mg Dextrose (Dextrose 50% Vial 50 Ml*) 25 ml IV PUSH .FOR FS < 60 - SS PRN PRN Reason: FS < 60 Dronedarone (Multaq Tab*) 400 mg PO BID [facility] Last Admin: 08/02/19 20:56 Dose: 400 mg Sodium Chloride (Ns 0.9% 1000 Ml) 1,000 mls @ 50 mls/hr IV PER RATE [facility] Last Admin: 08/02/19 23:24 Dose: 50 mls/hr Insulin Human Lispro (Humalog*) 0 units SUBCUT Q6HR [facility]; Protocol Last Admin: 08/03/19 06:11 Dose: 1 unit Metoprolol Succinate (Toprol Xl Tab*) 50 mg PO BID [facility] Last Admin: 08/02/19 20:56 Dose: 50 mg Morphine Sulfate (Morphine Inj (Syringe))*) 1 mg IV Q4H PRN PRN Reason: PAIN - SEVERE Pantoprazole Sodium (Protonix Tab*) 40 mg PO DAILY [facility] Last Admin: 08/02/19 08:01 Dose: 40 mg Vital Signs - 8 hr 08/03/19 03:15 Temperature 98.3 F Pulse Rate 79 Respiratory 16 Rate Blood Pressure 146/68 (mmHg) O2 Sat by Pulse 95 Oximetry Oxygen Devices in Use Now: None Result Diagrams: 08/03/19 06:42 08/01/19 05:02 Microbiology and Other Data: Microbiology 07/31/19 17:40 Stool Occult Blood ([facility]) - Final Stool Assess/Plan/Problems-Billing Assessment: Mr Handley is a 68yo M with PMH of morbid obesity with BMI 46, CARON on CPAP, PAF on AC, type 2 DM, GERD, HLD, HTN, gastric polyps (last EGD in April 2019 with no signs of active bleeding), who presented to ED with c/o dyspnea, found to have symptomatic anemia, likely secondary to recurrent GI bleed. - Patient Problems (1) Symptomatic anemia Comment: - Most likely ERICH in the setting of GI bleed (and Xarelto use). - S/p 4 PRBCs so far - continue to monitor H/H. (2) GI bleed Comment: - EGD did not show an acute source of bleeding. - GI input appreciated - recommended holding Xarelto and assess Afib burden as outpatient. - CHADS2-VASC score is 3 indicating a 3.2% risk of stroke per year and HAS-BLED score is 3 indicating a 3.7% risk of bleed. (3) Atrial flutter, paroxysmal Comment: - Currently in NSR. - Continue Multaq and Metoprolol. (4) Diabetes mellitus, type 2 Comment: - Metformin, Trulicity, Glimepiride, Lantus on hold. - Continue Lispro SS. (5) DVT prophylaxis Comment: - Pharmacological prophylaxis contraindicated in the setting of probable GI bleed. - SCDs. (6) Full code status Status and Disposition: Inpatient. Anticipate d/c in AM if H/H remains stable.
[2019-08-03] MEDS: Dronedarone TAB* 400 MG PO SCH (09:28)
[2019-08-03] MEDS: Acetaminophen TAB* 325 MG PO PRN (09:28)
[2019-08-03] MEDS: Pantoprazole TAB * 40 MG TAB PO SCH (09:28)
[2019-08-03] MEDS: Metoprolol Succinate XL TAB* 50 MG PO SCH (09:28)
[2019-08-03 11:19] VITALS: BP 127/52
--- NOTE | 2019-08-04 16:08 | DS ---
CC: Dr. Saldana; Dr. Méndez; Dr. Macario DISCHARGE SUMMARY: DATE OF ADMISSION: 07/31/19 DATE OF DISCHARGE: 08/03/19 PRIMARY CARE PROVIDER: Dr. Saldana. CONSULTING ELECTRICAL LINE SPLICER: Dr. Méndez. MANAGER SHIPPING: Dr. Macario. DISCHARGE DIAGNOSIS: Symptomatic anemia, likely secondary to upper gastrointestinal bleed. SECONDARY DIAGNOSES: 1. History of gastric polyps with upper GI bleed in the past. 2. Obstructive sleep apnea, on CPAP. 3. Paroxysmal atrial fibrillation. 4. Type 2 diabetes. 5. Gastroesophageal reflux disease. 6. Hyperlipidemia. 7. Hypertension. 8. Morbid obesity with BMI of 46. MEDICATIONS AT THE TIME OF DISCHARGE: 1. Atorvastatin 20 mg p.o. every other day. 2. Chlorthalidone 12.5 mg p.o. daily. 3. Cyanocobalamin 1000 mcg p.o. daily. 4. Multaq 400 mg p.o. b.i.d. 5. Trulicity 0.75 mg subcutaneously weekly. 6. Ferrous sulfate 325 mg p.o. b.i.d. 7. Fexofenadine 180 mg p.o. daily. 8. Glimepiride 8 mg p.o. daily. 9. Lantus 50 units subcutaneously b.i.d. 10. Irbesartan 150 mg p.o. daily. 11. Metformin 1000 mg p.o. b.i.d. 12. Metoprolol succinate 50 mg p.o. b.i.d. 13. Multivitamin 1 tablet p.o. daily. 14. Omeprazole 20 mg p.o. b.i.d. HOSPITAL COURSE: Mr. Handley is a 68-year-old male with a past medical history as stated above, who pr esented to the emergency room with complaints of shortness of breath. The patient has a history of r ecurrent GI bleed and known gastric polyps, status post multiple upper endoscopies with Dr. Dev guerra n the past. At this time, he did not describe any changes in the stool, but he noted progressive dys pnea with exertion. In the emergency room, the patient was felt to have a hemoglobin of 5.3 and he w as admitted for further management. The patient was seen in consultation by Gastroenterology (Dr. Méndez) who recommended an upper endos copy that showed gastric antral polyps that appeared to be low risk; however, the influence of Xarelt o cannot be known for sure. Extrinsic compression in the esophagus, stable, smooth and benign. Recu rring gastrointestinal bleeding. Dr. Méndez felt the Xarelto needed to be held and the burden risk of atrial fibrillation should be reassessed. The patient does not feel when he is in atrial fibrilla tion, but says his original episode in January 2018, he has not had other diagnosed episodes. The patient received a total of 4 PRBCs and had a hemoglobin of 7.6 on the day of discharge. He had symptomatic improvement and the plan is for him to be discharged home today to follow up with Dr. Bekah torres on 08/07/19 at 3 p.m. The patient received 1 Venofer infusion in the hospital and he states maura t in the past, iron therapy gave him significant symptomatic relief. The patient will also need to follow up with his primary care provider and Cardiology as I believe lo ng-term outpatient monitoring with a temporary event monitor/loop recorder may be beneficial in asses sing his AFib burden and to decide risks and benefits of resuming his Xarelto therapy. At this time, the patient has a CHADS2-VASc score of 3 indicating a 3.2% risk of stroke per year and a HAS-BLED sc ore of 3 that indicates a 3.7 risk of bleed and considering that this is not his first episode and he required 4 PRBCs at this time, his risk of bleeding is high and benefits of anticoagulation a t this time. Especially considering the fact that he appears to be in sinus rhythm for a long period , but I will let his PCP, Gastroenterology, and Cardiology make this decision for the future together . The patient is medically stable to be discharged home today. PHYSICAL EXAMINATION: Vital Signs: Temperature 97.9, heart rate is 79, respiratory rate is 16, oxyg en saturation is 97% on room air, blood pressure is 127/52. General: The patient is a pleasant elde rly gentleman, sitting up in bed in no acute distress. CVS: Normal S1, S2. Regular rate and rhythm . Chest: Breath sounds present bilaterally with no added sounds. Abdomen is morbidly obese, bowel s ounds present. Extremities: There is trace bilateral lower extremity pitting edema. Neuro: He is alert and oriented x3, able to move all 4 extremities. DIET: Heart healthy, consistent carb diet. ACTIVITIES: As tolerated. DISPOSITION: To home. STATUS WHILE IN THE HOSPITAL: Inpatient. CONDITION AT THE TIME OF DISCHARGE: Fair. Please keep in mind that this is a summarized version of this patient's hospital stay. If you need m ore information, please feel free to call me at [phone] or please obtain full medical records. TIME SPENT: Approximately 50 minutes was spent to complete this discharge. [id number]/[facility] #: [id number]
== END 2019-08-03 13:33 | disposition home or self-care (01) | DRG 812 ==
LOC: ED 17:10 → MEDTELE 18:48
PROVIDERS: ADMIT Internal Medicine; ATTEND Internal Medicine
PROC: 30233N1 Transfusion of Nonautologous Red Blood Cells into Peripheral Vein, Percutaneous Approach (ICD-10-PCS; principal; 2019-07-31)
PROC: 0DJ08ZZ Inspection of Upper Intestinal Tract, Via Natural or Artificial Opening Endoscopic (ICD-10-PCS; 2019-08-01)
DX: D50.0 Iron deficiency anemia secondary to blood loss (chronic) (principal); K92.2 Gastrointestinal hemorrhage, unspecified; Z68.42 Body mass index [BMI] 45.0-49.9, adult; G47.33 Obstructive sleep apnea (adult) (pediatric); I48.0 Paroxysmal atrial fibrillation; E11.9 Type 2 diabetes mellitus without complications; K21.9 Gastro-esophageal reflux disease without esophagitis; E78.5 Hyperlipidemia, unspecified; I10 Essential (primary) hypertension; E66.01 Morbid (severe) obesity due to excess calories; K31.7 Polyp of stomach and duodenum; I87.8 Other specified disorders of veins; Z79.01 Long term (current) use of anticoagulants; Z79.84 Long term (current) use of oral hypoglycemic drugs; Z79.4 Long term (current) use of insulin; Z79.899 Other long term (current) drug therapy; Z91.041 Radiographic dye allergy status; Z88.8 Allergy status to other drugs, medicaments and biological substances; Z91.048 Other nonmedicinal substance allergy status; Z87.891 Personal history of nicotine dependence; Z99.89 Dependence on other enabling machines and devices
CPT/HCPCS: 36415; 80048; 80053; 81003; 82272; 82607; 82728; 82746; 83540; 83550; 83605; 83735; 84443; 84484; 85014; 85018; 85025; 86850; 86900; 86901; 86922; 93005; 94660; 96374; 99156; 99157; 99284; A9270-GY; J1756; J1940; J2250; J3010; P9040